=== PATIENT | female | born 1965 | race Caucasian/White ===

== ENCOUNTER 2017-06-20 09:01 | Emergency (ER) | payer MEDICAID ==
[2017-06-20 10:01] LABS: BILIRUBIN,URINE NEGATIVE (NEGATIVE)
[2017-06-20 10:04] LABS: UA CHARGE (STRIP ONLY) YES; UR CULTURE IF IND NOT INDICATED
--- NOTE | 2017-06-20 11:27 | ED Physician Documentation ---
PD HPI BACK PAIN - Stated complaint Stated Complaint: R SIDE ADB PX - Chief complaint Chief Complaint: Abd Pain - History obtained from History obtained from: Patient - History of Present Illness Timing - onset: How many months ago (has had right back pain for about a month, on and off, worse with movement.) Timing - details: Gradual onset, Still present, Intermittant Location: Mid, Right Quality: Pain, Spasm, Aching Associated symptoms: No: Fever, Weakness, Numbness Improves with: Rest Worsened by: Movement, Twisting, Palpation Contributing factors: Twisting Similar symptoms before: Has not had sx before Recently seen: Not recently seen Review of Systems Constitutional: denies: Fever, Chills Nose: denies: Rhinorrhea / runny nose, Congestion Throat: denies: Sore throat Respiratory: denies: Cough GI: denies: Abdominal Pain, Nausea, Vomiting, Diarrhea : denies: Dysuria, Frequency Skin: denies: Rash, Lesions Musculoskeletal: reports: Back pain (right lower thoracic area). denies: Neck pain Neurologic: denies: Focal weakness, Numbness Endocrine: reports: Polyuria. denies: Weight loss, Weight gain Immunocompromised: denies: Immunocompromised PD PAST MEDICAL HISTORY - Past Medical History Past Medical History: Yes Cardiovascular: Hypertension, High cholesterol Endocrine/Autoimmune: Other (has been told she was pre-diabetic in the past, but no recent labs. ) Other Past Medical History: Pre-diabetic - Past Surgical History Past Surgical History: Yes General: Cholecystectomy Ortho: Knee replacement - Present Medications Home Medications: Ambulatory Orders Medication Instructions Recorded Confirmed HYDROcod/ACETAM 5/325 [[place]perial 5/325] 1 tab PO Q6H PRN #15 tablet 06/20/17 Metformin HCl 850 mg PO BID #60 tablet 06/20/17 Methocarbamol [Robaxin] 500 mg PO Q6H PRN #25 tablet 06/20/17 Naproxen 375 mg PO BID #20 tablet 06/20/17 - Allergies Allergies/Adverse Reactions: Allergies Allergy/AdvReac Type Severity Reaction Status Date / Time Penicillins Allergy Rash Verified 06/20/17 09:13 - Social History Does the pt smoke?: No Smoking Status: Never smoker Does the pt drink ETOH?: No Does the pt have substance abuse?: No - Immunizations Immunizations are current?: Yes PD ED PE NORMAL - Vitals Vital signs reviewed: Yes - General General: Alert and oriented X 3, No acute distress, Well developed/nourished - Neck Neck: Supple, no meningeal sign, No adenopathy - Cardiac Cardiac: RRR, No murmur - Respiratory Respiratory: Clear bilaterally - Abdomen Abdomen: Normal bowel sounds, Soft, Non tender, Non distended - Back Back: No spinal TTP, Other (right lateral muscles at lower thoracic is tender without rash, sores, redness. Trigger point injection done there.) - Derm Derm: Normal color, Warm and dry, No rash - Extremities Extremities: No deformity, No tenderness to palpate - Neuro Neuro: Alert and oriented X 3, No motor deficit, Normal speech Results - Vitals Vitals: Vital Signs - 24 hr 06/20/17 13:47 Temperature 36.7 C Heart Rate 61 Respiratory 18 Rate Blood Pressure 133/92 H O2 Saturation 98 Oxygen O2 Source Room air - Labs Labs: Laboratory Tests 06/20/17 06/20/17 06/20/17 09:25 11:39 12:07 WBC 7.1 RBC 4.59 Hgb 13.5 Hct 39.9 MCV 86.9 MCH 29.5 MCHC 33.9 RDW 14.2 Plt Count 282 MPV 7.8 L Neut # 3.8 Lymph # 2.6 [place] # 0.3 Eos # 0.2 Baso # 0.1 Absolute Nucleated RBC 0.01 Nucleated RBCs 0.1 Sodium Potassium Chloride Carbon Dioxide Anion Gap BUN Creatinine Estimated GFR (MDRD) Glucose POC Whole Bld Glucose 233 H Glycated Hemoglobin Estim Average Glucose Calcium Magnesium Total Bilirubin AST ALT Alkaline Phosphatase Total Protein Albumin Globulin Albumin/Globulin Ratio Lipase Urine Color YELLOW Urine Clarity CLEAR Urine pH 6.0 Ur Specific [place] >=1.030 H Urine Protein NEGATIVE Urine Glucose (UA) >=1000 H Urine Ketones NEGATIVE Urine Occult Blood TRACE-INTA Urine Nitrite NEGATIVE Urine Bilirubin NEGATIVE Urine Urobilinogen 0.2 (NORMAL) Ur Leukocyte Esterase NEGATIVE Ur Microscopic Review NOT INDICATED Urine Culture Comments NOT INDICATED 06/20/17 06/20/17 12:07 12:07 WBC RBC Hgb Hct MCV MCH MCHC RDW Plt Count MPV Neut # Lymph # [place] # Eos # Baso # Absolute Nucleated RBC Nucleated RBCs Sodium 134 L Potassium 3.6 Chloride 99 L Carbon Dioxide 28 Anion Gap 7.0 BUN 13 Creatinine 0.5 Estimated GFR (MDRD) 130 Glucose 235 H POC Whole Bld Glucose Glycated Hemoglobin 12.9 H Estim Average Glucose 324 H Calcium 8.6 Magnesium 1.6 L Total Bilirubin 0.4 AST 26 ALT 32 Alkaline Phosphatase 76 Total Protein 7.2 Albumin 3.7 Globulin 3.5 Albumin/Globulin Ratio 1.1 Lipase 25 Urine Color Urine Clarity Urine pH Ur Specific [place] Urine Protein Urine Glucose (UA) Urine Ketones Urine Occult Blood Urine Nitrite Urine Bilirubin Urine Urobilinogen Ur Leukocyte Esterase Ur Microscopic Review Urine Culture Comments - Rads (name of study) KUB CT Radiology: Prelim report reviewed (no acute process) PD MEDICAL DECISION MAKING - ED course Complexity details: reviewed results, considered differential (the back seems muscular. CT done to ensure and this was okay. New onset diabetes but not appearing sick nor acidotic, so can initiate oral meds, though will likely need to go onto long acting insulin as best care, but will let her get PMD prior to that. ), d/w patient Departure - Departure Disposition: 01 Home, Self Care Clinical Impression: Flank pain, acute, Newly diagnosed diabetes Muscle strain of right upper back Qualifiers: Encounter type: initial encounter Qualified Code(s): S29.012A - Strain of muscle and tendon of back wall of thorax, initial encounter Condition: Stable Record reviewed to determine appropriate education?: Yes Instructions: ED Low Back Pain Injury, ED Hyperglycemia Diabetic Follow-Up: [facility] [Provider Group] [facility] [Provider Group] Prescriptions: Metformin HCl 850 mg PO BID #60 tablet Naproxen 375 mg PO BID #20 tablet HYDROcod/ACETAM 5/325 [[place]perial 5/325] 1 tab PO Q6H PRN #15 tablet PRN Reason: Pain Methocarbamol [Robaxin] 500 mg PO Q6H PRN #25 tablet PRN Reason: Spasms Comments: Presume this is muscular back pain without other obvious cause at this time. For that take naproxen with food twice daily for the next 7-10 days. Add methocarbamol for muscle stiffness and spasms and then Tylenol or hydrocodone if needed for pains. Your blood sugar is elevated and you should start medication for that. We will start with metformin twice daily. Follow-up with 1 of the clinics locally in the next 1-2 weeks and call for an appointment. You might need to also start insulin if the sugars are not coming down well in the near timeframe. Return if worsening or not improved symptoms for your back. Forms: Activity restrictions Discharge Date/Time: 06/20/17 13:55
[2017-06-20] MEDS ORDERED: TRIAMCINOLONE 40 MG/ML VIAL IM STA (11:58)
[2017-06-20] MEDS ORDERED: IBUPROFEN 600 MG TABLET PO STA (11:58)
[2017-06-20] MEDS ORDERED: traMADol 50 MG TABLET PO STA (11:58)
[2017-06-20] MEDS ORDERED: traMADol 50 MG TABLET PO ONE (12:05)
[2017-06-20] MEDS ORDERED: IBUPROFEN 600 MG TABLET PO ONE (12:06)
[2017-06-20] MEDS ORDERED: TRIAMCINOLONE 40 MG/ML VIAL ONE (12:06)
[2017-06-20 12:15] LABS: BASOPHILS # (AUTO) 0.1 10^3/uL (0.0-0.1); BASOPHILS % (AUTO) 0.9 %; EOSINOPHILS # (AUTO) 0.2 10^3/uL (0.0-0.7); EOSINOPHILS % (AUTO) 3.2 %; HCT - HEMATOCRIT 39.9 % (37.0-47.0); HGB - HEMOGLOBIN 13.5 g/dL (12.0-16.0); LYMPHOCYTES # (AUTO) 2.6 10^3/uL (1.5-3.5); MEAN CORPUSCULAR HEMOGLOBIN 29.5 pg (27.0-31.0); MEAN CORPUSCULAR HGB CONC 33.9 g/dL (32.0-36.0); MEAN CORPUSCULAR VOLUME 86.9 fL (81.0-99.0); MEAN PLATELET VOLUME 7.8 fL (7.9-10.8); MONOCYTES # (AUTO) 0.3 10^3/uL (0.0-1.0); MONOCYTES % (AUTO) 4.9 %; NEUTROPHILS # (AUTO) 3.8 10^3/uL (1.5-6.6); NUCLEATED RED BLOOD CELLS AUTO 0.1 /100WBC; RED BLOOD COUNT 4.59 10^6/uL (4.20-5.40); RED CELL DISTRIBUTION WIDTH 14.2 % (12.0-15.0); UNCORRECTED WHITE BLOOD COUNT 7.1 x10^3/uL; WHITE BLOOD COUNT 7.1 x10^3/uL (4.8-10.8)
[2017-06-20] MEDS ORDERED: BUPIVACAINE 0.5% PF 30 ML VIAL ONE (12:22)
[2017-06-20 12:40] LABS: ALBUMIN/GLOBULIN RATIO 1.1 (1.0-2.2); BILIRUBIN,TOTAL 0.4 mg/dL (0.2-1.0); CALCIUM 8.6 mg/dL (8.5-10.3); CREATININE 0.5 mg/dL (0.4-1.0); MAGNESIUM 1.6 mg/dL (1.7-2.8); POTASSIUM 3.6 mmol/L (3.5-5.0); TOTAL PROTEIN 7.2 g/dL (6.7-8.2)
[2017-06-20 12:54] LABS: HEMOGLOBIN A1C 1.7 g/dL
--- NOTE | 2017-06-20 13:14 | CT Preliminary Report ---
Exam: CT Abdomen/Pelvis W/O IMPRESSION: Negative noncontrast CT of the abdomen and pelvis. [facility] SITE ID: [id number]
--- NOTE | 2017-06-20 13:16 | CT Report ---
EXAM: CT ABDOMEN AND PELVIS (CT KUB) EXAM DATE: 06/20/2017 12:47 PM. CLINICAL HISTORY: Right flank pain. COMPARISONS: None. TECHNIQUE: Routine axial helical CT imaging was performed through the abdomen and pelvis without IV c ontrast. Reconstructions: Coronal and sagittal. In accordance with CT protocol optimization, one or more of the following dose reduction techniques w ere utilized for this exam: automated exposure control, adjustment of mA and/or KV based on patient s ize, or use of iterative reconstructive technique. FINDINGS: Lung Bases: Unremarkable. Right Kidney/Ureter: No stones, hydronephrosis, or hydroureter. No perinephric fat stranding. Left Kidney/Ureter: No stones, hydronephrosis, or hydroureter. No perinephric fat stranding. Other Solid Organs: Noncontrast images of the solid organs are grossly unremarkable. Gallbladder/Bile Ducts: The gallbladder is surgically absent. No significant bile duct dilatation. Peritoneal Cavity: No free fluid, free air or lianna adenopathy. Bowel is grossly unremarkable. Pelvic Organs: No bladder stones or wall thickening. Noncontrast images of the visualized pelvic orga ns are unremarkable. Vasculature: Unremarkable. Other: None. IMPRESSION: Negative noncontrast CT of the abdomen and pelvis. [facility] Referring Provider Line: [phone] SITE ID: [id number]
[2017-06-20 13:49] VITALS: BP 133/92
== END 2017-06-20 13:55 | disposition home or self-care (01) ==
LOC: ED 09:01
DX: S29.012A Strain of muscle and tendon of back wall of thorax, initial encounter (principal); X58.XXXA Exposure to other specified factors, initial encounter; I10 Essential (primary) hypertension; E78.00 Pure hypercholesterolemia, unspecified; E11.8 Type 2 diabetes mellitus with unspecified complications; Z79.84 Long term (current) use of oral hypoglycemic drugs; Z96.659 Presence of unspecified artificial knee joint
CPT/HCPCS: 36415; 74176; 80053; 81003; 83036; 83690; 83735; 85025; 96372; 99283; A9270; 81001; 87086

== ENCOUNTER 2017-10-26 09:59 | Emergency (ER) | payer MEDICAID ==
[2017-10-26 10:05] VITALS: BP 184/83
[2017-10-26] MEDS ORDERED: BENZONATATE 100 MG CAPSULE PO STA (10:17)
--- NOTE | 2017-10-26 10:29 | ED Physician Documentation ---
History of Present Illness - Stated complaint Stated Complaint: COUGH BLOOD - Chief complaint Chief Complaint: Resp - Additonal information Additional information: hx from pt 52 female cough for a month' today while working at [employer] had small hemoptysis so sent to ER no foreign travel or TB exposure no leg pain or swelling feels her cough is not clearing because she is homeless and spends a lot of time out in the cold between [employer] and [place] Review of Systems Constitutional: denies: Fever, Chills Respiratory: reports: Dyspnea, Cough, Hemoptysis GI: denies: Abdominal Pain : denies: Now EGA (denies) Musculoskeletal: denies: Extremity swelling PD PAST MEDICAL HISTORY - Past Medical History Cardiovascular: Hypertension, High cholesterol Endocrine/Autoimmune: Other - Past Surgical History Past Surgical History: Yes General: Cholecystectomy Ortho: Knee replacement - Present Medications Home Medications: Ambulatory Orders Medication Instructions Recorded Confirmed Benzonatate [Tessalon] 100 mg PO TID PRN #20 capsule 10/26/17 guaiFENesin/DEXTROMETHORPHAN 10 ml PO Q6H PRN #120 ml 10/26/17 [Robitussin Dm] - Allergies Allergies/Adverse Reactions: Allergies Allergy/AdvReac Type Severity Reaction Status Date / Time Penicillins Allergy Rash Verified 06/20/17 09:13 - Social History Does the pt smoke?: No Smoking Status: Never smoker Does the pt drink ETOH?: No Does the pt have substance abuse?: No - Immunizations Immunizations are current?: Yes PD ED PE NORMAL - Vitals Vital signs reviewed: Yes - Cardiac Cardiac: RRR - Respiratory Respiratory: No respiratory distress, Clear bilaterally - Abdomen Abdomen: Soft, Non tender - Extremities Extremities: No edema, No calf tenderness / cord - Neuro Neuro: Alert and oriented X 3 Results - Vitals Vitals: Vital Signs - 24 hr 10/26/17 10:02 Temperature 35.8 C L Heart Rate 90 Respiratory 18 Rate Blood Pressure 184/83 H O2 Saturation 100 Oxygen O2 Source Room air - Rads (name of study) CXR Radiology: See rad report (NACPD) Departure - Departure Disposition: 01 Home, Self Care Clinical Impression: Bronchitis Condition: Good Instructions: ED Viral Syndrome Prescriptions: Benzonatate [Tessalon] 100 mg PO TID PRN #20 capsule PRN Reason: to ease cough guaiFENesin/DEXTROMETHORPHAN [Robitussin Dm] 10 ml PO Q6H PRN #120 ml PRN Reason: Cough Comments: The xray is fine - no cancer TB or infection seen. I have prescribed medications to ease your cough. I wrote a note to be off work for two days Please follow up with your PMD as needed - if the blood continues you may need a referral to a lung specialist If you cough up a lot of blood (more than a tablespoon of pure blood (not bloody mucous) come back to the ER - you will need a test called a bronchoscope which will require you being transferred to a larger hospital Forms: Activity restrictions
--- NOTE | 2017-10-26 11:04 | XRAY Report ---
EXAM: CHEST RADIOGRAPHY EXAM DATE: 10/26/2017 10:46 AM. CLINICAL HISTORY: Hemoptysis. COMPARISON: None. TECHNIQUE: 2 views. FINDINGS: Lungs/Pleura: No focal opacities evident. No pleural effusion. No pneumothorax. Normal volumes. Mediastinum: Heart and mediastinal contours are unremarkable. Other: Degenerative changes of the thoracic spine. No acute osseous abnormalities. IMPRESSION: 1. No acute disease in the chest. [facility] Referring Provider Line: [phone] SITE ID: [id number]
== END 2017-10-26 11:52 | disposition home or self-care (01) ==
LOC: ED 09:59
DX: J40 Bronchitis, not specified as acute or chronic (principal); I10 Essential (primary) hypertension; E78.00 Pure hypercholesterolemia, unspecified
CPT/HCPCS: 71046; 99283; A9270

== ENCOUNTER 2017-11-08 08:58 | Emergency (ER) | payer MEDICAID ==
[2017-11-08] MEDS ORDERED: SODIUM CHLORIDE 0.9% 1,000 ML IV ONE ×2 (09:30→10:03)
[2017-11-08 09:32] LABS: BASOPHILS # (AUTO) 0.1 10^3/uL (0.0-0.1); EOSINOPHILS # (AUTO) 0.3 10^3/uL (0.0-0.7); EOSINOPHILS % (AUTO) 4.6 %; HGB - HEMOGLOBIN 14.9 g/dL (12.0-16.0); LYMPHOCYTES # (AUTO) 2.9 10^3/uL (1.5-3.5); LYMPHOCYTES % (AUTO) 38.6 %; MEAN CORPUSCULAR HEMOGLOBIN 30.2 pg (27.0-31.0); MEAN CORPUSCULAR HGB CONC 32.6 g/dL (32.0-36.0); MEAN CORPUSCULAR VOLUME 92.7 fL (81.0-99.0); MEAN PLATELET VOLUME 8.6 fL (7.9-10.8); MONOCYTES # (AUTO) 0.4 10^3/uL (0.0-1.0); MONOCYTES % (AUTO) 5.1 %; NEUTROPHILS # (AUTO) 3.7 10^3/uL (1.5-6.6); NEUTROPHILS % (AUTO) 49.7 %; PLT - PLATELET COUNT 299 10^3/uL (130-450); RED BLOOD COUNT 4.93 10^6/uL (4.20-5.40); WHITE BLOOD COUNT 7.4 x10^3/uL (4.8-10.8)
--- NOTE | 2017-11-08 09:33 | ED Physician Documentation ---
History of Present Illness - Stated complaint Stated Complaint: ABD PX/DIZZY/ARM PX - Chief complaint Chief Complaint: Cardiac - History obtained from History obtained from: Patient, Family - History of Present Illness Timing: Today - Additonal information Additional information: 52-year-old homeless female has had a month-long history of bronchitis which now appears to be improving and despite this this morning she began to feel ill. She describes that she only feels that something is wrong and has some pressure in her lower chest and upper abdomen with radiation down her arm and she feels that she is at risk of a heart attack or stroke. She has a history of hypertension and diabetes and she is not under treatment for either of these. She has been drinking a lot of fluids and urinating a lot. Review of Systems Constitutional: reports: Fatigue. denies: Fever, Chills Eyes: denies: Decreased vision Ears: denies: Ear pain Nose: reports: Congestion. denies: Rhinorrhea / runny nose Throat: denies: Sore throat Cardiac: denies: Chest pain / pressure, Palpitations Respiratory: reports: Cough. denies: Dyspnea GI: reports: Abdominal Pain. denies: Nausea, Vomiting, Constipation, Diarrhea : denies: Dysuria, Frequency Skin: denies: Rash Musculoskeletal: denies: Neck pain, Back pain, Extremity pain Endocrine: reports: Polydypsia, Polyuria PD PAST MEDICAL HISTORY - Past Medical History Past Medical History: Yes Cardiovascular: Hypertension, High cholesterol Neuro: TIA Endocrine/Autoimmune: Other - Past Surgical History Past Surgical History: Yes General: Cholecystectomy Ortho: Knee replacement - Present Medications Home Medications: Ambulatory Orders Medication Instructions Recorded Confirmed metFORMIN [Glucophage] 500 mg PO BIDWM #30 tablet 11/08/17 - Allergies Allergies/Adverse Reactions: Allergies Allergy/AdvReac Type Severity Reaction Status Date / Time Penicillins Allergy Rash Verified 06/20/17 09:13 - Social History Does the pt smoke?: No Smoking Status: Never smoker Does the pt drink ETOH?: No Does the pt have substance abuse?: No - Immunizations Immunizations are current?: Yes PD ED PE NORMAL - Vitals Vital signs reviewed: Yes (Hypertensive) - General General: Alert and oriented X 3, No acute distress, Well developed/nourished - HEENT HEENT: Atraumatic, PERRL, EOMI, Ears normal, Other (Dry mucous membranes) - Neck Neck: Supple, no meningeal sign, No bony TTP - Cardiac Cardiac: RRR, No murmur - Respiratory Respiratory: No respiratory distress, Clear bilaterally - Abdomen Abdomen: Soft, Non tender - Back Back: No CVA TTP, No spinal TTP - Derm Derm: Normal color, Warm and dry, No rash - Extremities Extremities: No deformity, No edema - Neuro Neuro: No motor deficit, No sensory deficit Eye Opening: Spontaneous Motor: Obeys Commands Verbal: Oriented GCS Score: 15 - Psych Psych: Normal mood, Normal affect Results - Vitals Vitals: Vital Signs - 24 hr 11/08/17 11/08/17 11/08/17 09:03 09:44 11:24 Temperature 35.9 C L Heart Rate 80 65 64 Respiratory 18 99 H 24 Rate Blood Pressure 187/102 H 166/92 H 130/71 O2 Saturation 98 100 11/08/17 11:59 Temperature Heart Rate 69 Respiratory 14 Rate Blood Pressure 132/83 H O2 Saturation 100 Oxygen O2 Source Room air - EKG (time done) 0906 Rate: Rate (enter#) (76) Rhythm: NSR Intervals: RBBB Compare to prior EKG: Old EKG unavailable Computer interpretation: Agree with computer - Labs Labs: Laboratory Tests 11/08/17 11/08/17 11/08/17 09:15 09:15 09:15 WBC 7.4 RBC 4.93 Hgb 14.9 Hct 45.7 MCV 92.7 MCH 30.2 MCHC 32.6 RDW 14.0 Plt Count 299 MPV 8.6 Neut # 3.7 Lymph # 2.9 [place] # 0.4 Eos # 0.3 Baso # 0.1 Absolute Nucleated RBC 0.00 Nucleated RBC % 0.1 Sodium 133 L Potassium 4.2 Chloride 94 L Carbon Dioxide 27 Anion Gap 12.0 BUN 14 Creatinine 0.7 Estimated GFR (MDRD) 88 L Glucose 347 H POC Whole Bld Glucose Calcium 9.4 Total Bilirubin 0.3 AST 27 ALT 36 Alkaline Phosphatase 92 Troponin I < 0.04 Total Protein 8.2 Albumin 3.9 Globulin 4.3 H Albumin/Globulin Ratio 0.9 L Lipase 22 Urine Color Urine Clarity Urine pH Ur Specific [place] Urine Protein Urine Glucose (UA) Urine Ketones Urine Occult Blood Urine Nitrite Urine Bilirubin Urine Urobilinogen Ur Leukocyte Esterase Ur Microscopic Review Urine Culture Comments 11/08/17 11/08/17 11/08/17 09:40 11:05 11:58 WBC RBC Hgb Hct MCV MCH MCHC RDW Plt Count MPV Neut # Lymph # [place] # Eos # Baso # Absolute Nucleated RBC Nucleated RBC % Sodium Potassium Chloride Carbon Dioxide Anion Gap BUN Creatinine Estimated GFR (MDRD) Glucose POC Whole Bld Glucose 272 H 181 H Calcium Total Bilirubin AST ALT Alkaline Phosphatase Troponin I Total Protein Albumin Globulin Albumin/Globulin Ratio Lipase Urine Color YELLOW Urine Clarity CLEAR Urine pH 6.0 Ur Specific [place] 1.025 Urine Protein NEGATIVE Urine Glucose (UA) >=1000 H Urine Ketones NEGATIVE Urine Occult Blood TRACE-INTA Urine Nitrite NEGATIVE Urine Bilirubin NEGATIVE Urine Urobilinogen 0.2 (NORMAL) Ur Leukocyte Esterase NEGATIVE Ur Microscopic Review NOT INDICATED Urine Culture Comments NOT INDICATED - Rads (name of study) 2 veiw chest Radiology: Prelim report reviewed (Impression: No acute abnormality of the chest demonstrated.), EMP read indepedently, See rad report Procedures - IVC sono (time) 0920 Bedside IVC sono: IVC measures (cm) (0.89), IVC collapsed c insp (cm) (complete) , Dehydration (est 2 liters) PD MEDICAL DECISION MAKING - ED course Complexity details: reviewed old records, reviewed results, re-evaluated patient , considered differential, d/w patient, d/w family ED course: 52-year-old female with history of hypertension and diabetes untreated presents to the emergency department this morning with epigastric pain and hypertension and she has normal-appearing electrocardiogram and is significantly dehydrated. She is administered saline and some insulin to get her sugar under 200. Departure - Departure Disposition: 01 Home, Self Care Clinical Impression: Dehydration Diabetes type 2, uncontrolled Qualifiers: Diabetes mellitus complication status: with other specified complication Diabetes mellitus medical terminologist insulin use: without fpc use Qualified Code(s) : E11.69 - Type 2 diabetes mellitus with other specified complication Condition: Stable Instructions: Diabetes Type 2 Oral Meds, ED Dehydration Follow-Up: Your, doctor [Other] Prescriptions: metFORMIN [Glucophage] 500 mg PO BIDWM #30 tablet Discharge Date/Time: 11/08/17 12:13
[2017-11-08 09:34] LABS: ALBUMIN 3.9 g/dL (3.2-5.5); ALBUMIN/GLOBULIN RATIO 0.9 (1.0-2.2); BILIRUBIN,TOTAL 0.3 mg/dL (0.2-1.0); CALCIUM 9.4 mg/dL (8.5-10.3); CREATININE 0.7 mg/dL (0.4-1.0); TOTAL PROTEIN 8.2 g/dL (6.7-8.2)
--- NOTE | 2017-11-08 09:47 | XRAY Report ---
EXAM: CHEST RADIOGRAPHY EXAM DATE: 11/08/2017 09:39 AM. CLINICAL HISTORY: Chest pain. COMPARISON: 10/26/2017. TECHNIQUE: 2 views. FINDINGS: Lungs/Pleura: No focal opacities evident. No pleural effusion. No pneumothorax. Normal volumes. Mediastinum: Heart and mediastinal contours are unremarkable. Other: Thoracolumbar spondylosis demonstrated. IMPRESSION: No acute abnormality of the chest demonstrated. [facility] Referring Provider Line: [phone] SITE ID: [id number]
[2017-11-08 09:51] LABS: BILIRUBIN,URINE NEGATIVE (NEGATIVE); GLUCOSE, URINE (UA) >=1000 mg/dL (NEGATIVE); KETONES,URINE (UA) NEGATIVE (NEGATIVE); LEUKOCYTE ESTERASE, URINE NEGATIVE (NEGATIVE); NITRITE,URINE NEGATIVE (NEGATIVE); OCCULT BLOOD,URINE TRACE-INTA (NEGATIVE); PROTEIN,URINE NEGATIVE (NEGATIVE); UROBILINOGEN,URINE 0.2 (NORMAL) E.U./dL (NORMAL)
[2017-11-08 09:52] LABS: CLARITY,URINE CLEAR (CLEAR)
[2017-11-08] MEDS ORDERED: INSULIN REGULAR HUMAN 100 UNIT/1 ML 10 ML MDV IVP STA ×2 (11:07→11:08)
[2017-11-08 12:00] VITALS: BP 132/83
== END 2017-11-08 12:13 | disposition home or self-care (01) ==
LOC: ED 08:58
DX: E86.0 Dehydration (principal); E11.65 Type 2 diabetes mellitus with hyperglycemia; R10.13 Epigastric pain; I10 Essential (primary) hypertension; I45.10 Unspecified right bundle-branch block; Z59.0 Homelessness
CPT/HCPCS: 36415; 71046; 80053; 81003; 83690; 84484; 85025; 93005; 96360; 96361; 99284; J1815; 81001; 87086

== ENCOUNTER 2018-01-02 06:21 | Outpatient (CLI) | payer MEDICAID | END 2018-01-02 06:22 | disposition critical access hospital (66) | LOC: EMS 06:21 | PROVIDERS: ATTEND Surgery | DX: R10.9 Unspecified abdominal pain (principal); R19.7 Diarrhea, unspecified | CPT/HCPCS: A0425; A0429 ==

== ENCOUNTER 2018-01-02 06:38 | Emergency (ER) | payer MEDICAID ==
[2018-01-02 07:08] LABS: BASOPHILS # (AUTO) 0.1 10^3/uL (0.0-0.1); BASOPHILS % (AUTO) 1.3 %; EOSINOPHILS # (AUTO) 0.9 10^3/uL (0.0-0.7); EOSINOPHILS % (AUTO) 8.8 %; HGB - HEMOGLOBIN 14.7 g/dL (12.0-16.0); LYMPHOCYTES # (AUTO) 2.4 10^3/uL (1.5-3.5); LYMPHOCYTES % (AUTO) 24.7 %; MEAN CORPUSCULAR HEMOGLOBIN 29.7 pg (27.0-31.0); MEAN CORPUSCULAR HGB CONC 33.8 g/dL (32.0-36.0); MEAN CORPUSCULAR VOLUME 88.1 fL (81.0-99.0); MEAN PLATELET VOLUME 8.1 fL (7.9-10.8); MONOCYTES # (AUTO) 0.6 10^3/uL (0.0-1.0); MONOCYTES % (AUTO) 6.2 %; NEUTROPHILS # (AUTO) 5.8 10^3/uL (1.5-6.6); PLT - PLATELET COUNT 358 10^3/uL (130-450); RED BLOOD COUNT 4.96 10^6/uL (4.20-5.40); RED CELL DISTRIBUTION WIDTH 13.9 % (12.0-15.0); WHITE BLOOD COUNT 9.9 x10^3/uL (4.8-10.8)
[2018-01-02 07:11] LABS: ALBUMIN 3.8 g/dL (3.2-5.5); ALBUMIN/GLOBULIN RATIO 0.9 (1.0-2.2); BILIRUBIN,TOTAL 0.4 mg/dL (0.2-1.0); CREATININE 0.7 mg/dL (0.4-1.0); TOTAL PROTEIN 8.2 g/dL (6.7-8.2)
[2018-01-02] MEDS ORDERED: INSULIN REGULAR HUMAN 100 UNIT/1 ML 10 ML MDV SUBQ STA (08:16)
[2018-01-02] MEDS ORDERED: SODIUM CHLORIDE 0.9% 1,000 ML IV ONE ×2 (08:16→09:04)
--- NOTE | 2018-01-02 08:37 | ED Physician Documentation ---
PD HPI ABD PAIN - Stated complaint Stated Complaint: ABD PX - Chief complaint Chief Complaint: Abd Pain - History obtained from History obtained from: Patient - History of Present Illness Timing - onset: Today Timing - details: Still present Quality: Cramping Location: All over / everywhere Associated symptoms: Nausea, Diarrhea. No: Fever, Vomiting, Dysuria Similar symptoms before: Has not had sx before - Additional information Additional information: The patient is a 52-year-old type II diabetic who presents with crampy abdominal pain and watery diarrhea that started this morning. She reports 5 episodes of diarrhea in the past 3 hours. She also reports nausea, without vomiting. She denies fever or dysuria. Her blood sugar this morning was 400, and she reports polyuria. She also reports mild nonproductive cough. She denies chest pain or shortness of breath. She denies history of similar symptoms in the past. In addition she complains of decreased sensation of her left foot since yesterday morning. She denies associated pain in either her foot, leg, or back. She denies history of similar symptoms in the past. [facility] She recently returned to [facility] after becoming homeless in [place]. Her , who is an insulin-dependent diabetic, has had diarrhea for the past 3 days. Review of Systems Constitutional: denies: Fever, Myalgias Nose: denies: Congestion Throat: denies: Sore throat Cardiac: denies: Chest pain / pressure Respiratory: reports: Cough (Nonproductive). denies: Dyspnea GI: reports: Abdominal Pain, Nausea, Diarrhea. denies: Vomiting : denies: Dysuria Skin: denies: Rash Musculoskeletal: denies: Back pain, Extremity pain, Extremity swelling Neurologic: reports: Numbness (Decreased sensation left foot.). denies: Focal weakness, Headache Endocrine: reports: Polyuria PD PAST MEDICAL HISTORY - Past Medical History Past Medical History: Yes Cardiovascular: Hypertension, High cholesterol Neuro: TIA Endocrine/Autoimmune: Type 2 diabetes, Other - Past Surgical History Past Surgical History: Yes General: Cholecystectomy Ortho: Knee replacement - Present Medications Home Medications: Ambulatory Orders Medication Instructions Recorded Confirmed metFORMIN [Glucophage] 500 mg PO BIDWM #30 tablet 11/08/17 - Allergies Allergies/Adverse Reactions: Allergies Allergy/AdvReac Type Severity Reaction Status Date / Time Penicillins Allergy Rash Verified 01/02/18 06:47 - Living Situation Living Arrangement: reports: Homeless (Living in Homeless Longterm.) - Social History Does the pt smoke?: No Smoking Status: Never smoker Does the pt drink ETOH?: No Does the pt have substance abuse?: No - Immunizations Immunizations are current?: Yes - POLST Patient has POLST: No PD ED PE NORMAL - Vitals Vital signs reviewed: Yes (hypertensive.) - General General: Alert and oriented X 3, Well developed/nourished, Other (Overweight.) - HEENT HEENT: Atraumatic, EOMI, Moist mucous membranes, Pharynx benign - Neck Neck: Supple, no meningeal sign, No adenopathy, No JVD - Cardiac Cardiac: RRR, No murmur - Respiratory Respiratory: No respiratory distress, Clear bilaterally - Abdomen Abdomen: Normal bowel sounds, Soft, Non tender - Back Back: No CVA TTP, No spinal TTP - Derm Derm: No rash - Extremities Extremities: No tenderness to palpate, No edema, No calf tenderness / cord - Neuro Neuro: Alert and oriented X 3, No motor deficit, Normal speech, Other ( Decreased slight touch sensation left lateral and dorsal foot.) Eye Opening: Spontaneous Motor: Obeys Commands Verbal: Oriented GCS Score: 15 Results - Vitals Vitals: Oxygen O2 Source Room air - Labs Labs: Laboratory Tests 01/02/18 01/02/18 01/02/18 06:46 06:46 11:15 WBC 9.9 RBC 4.96 Hgb 14.7 Hct 43.6 MCV 88.1 MCH 29.7 MCHC 33.8 RDW 13.9 Plt Count 358 MPV 8.1 Neut # 5.8 Lymph # 2.4 [place] # 0.6 Eos # 0.9 H Baso # 0.1 Absolute Nucleated RBC 0.00 Nucleated RBC % 0.0 Sodium 133 L Potassium 3.2 L Chloride 101 Carbon Dioxide 21 Anion Gap 11.0 BUN 13 Creatinine 0.7 Estimated GFR (MDRD) 88 L Glucose 364 H Calcium 9.0 Total Bilirubin 0.4 AST 29 ALT 43 Alkaline Phosphatase 116 Total Protein 8.2 Albumin 3.8 Globulin 4.4 H Albumin/Globulin Ratio 0.9 L Lipase 28 Urine Color LIGHT YELLOW Urine Clarity CLEAR Urine pH 5.5 Ur Specific [place] 1.020 Urine Protein NEGATIVE Urine Glucose (UA) 500 H Urine Ketones NEGATIVE Urine Occult Blood NEGATIVE Urine Nitrite NEGATIVE Urine Bilirubin NEGATIVE Urine Urobilinogen 0.2 (NORMAL) Ur Leukocyte Esterase NEGATIVE Ur Microscopic Review NOT INDICATED Urine Culture Comments NOT INDICATED PD MEDICAL DECISION MAKING - ED course Complexity details: reviewed old records, reviewed results, re-evaluated patient , considered differential, d/w patient ED course: The patient's presentation is significant for diarrhea with dehydration, and hyperglycemia. Her abdomen is benign, with no evidence of diverticulitis, appendicitis, pancreatitis, or pyelonephritis. Her diarrhea is most likely caused by a viral gastroenteritis. Treatment in the emergency department included administration of normal saline 2 L IV, and regular insulin 8 units subcutaneously. Her blood sugar, which was initially 364, came down to 192 by the time of discharge. She felt subjectively much improved, and had gone for 2 hours without any episodes of diarrhea prior to discharge. I discussed with her the expected course of illness, symptomatic treatment and outpatient follow-up, as well as potentially worrisome signs or symptoms that should prompt reevaluation in the emergency department. Departure - Departure Disposition: 01 Home, Self Care Clinical Impression: Dehydration Diarrhea Qualifiers: Diarrhea type: unspecified type Qualified Code(s): R19.7 - Diarrhea, unspecified Diabetes mellitus with hyperglycemia Qualifiers: Diabetes mellitus type: type 2 Diabetes mellitus manager terminal insulin use: without manager terminal use Qualified Code(s): E11.65 - Type 2 diabetes mellitus with hyperglycemia Diabetic neuropathy Qualifiers: Diabetes mellitus type: type 2 Diabetes mellitus complication detail: diabetic mononeuropathy Qualified Code(s): E11.41 - Type 2 diabetes mellitus with diabetic mononeuropathy Condition: Stable Instructions: ED Dehydration, ED Diarrhea Viral Follow-Up: [facility] [Provider Group] Comments: Drink plenty of fluids. Continue your diabetic medication as previously prescribed. Keep your left foot elevated as much of the time as possible. Follow-up with primary physician within 1-2 weeks. Call to schedule appointment. Return to the emergency department if you develop increasing abdominal pain, persistent diarrhea, recurrent dehydration, or otherwise worsening symptoms. Discharge Date/Time: 01/02/18 13:19
[2018-01-02 11:33] LABS: BILIRUBIN,URINE NEGATIVE (NEGATIVE); GLUCOSE, URINE (UA) 500 mg/dL (NEGATIVE); KETONES,URINE (UA) NEGATIVE (NEGATIVE); LEUKOCYTE ESTERASE, URINE NEGATIVE (NEGATIVE); NITRITE,URINE NEGATIVE (NEGATIVE); OCCULT BLOOD,URINE NEGATIVE (NEGATIVE); PH,URINE 5.5 PH (5.0-7.5); PROTEIN,URINE NEGATIVE (NEGATIVE); UROBILINOGEN,URINE 0.2 (NORMAL) E.U./dL (NORMAL)
[2018-01-02 11:34] LABS: CLARITY,URINE CLEAR (CLEAR)
[2018-01-02 13:17] VITALS: BP 154/95
== END 2018-01-02 13:19 | disposition home or self-care (01) ==
LOC: EDUNIT# → ED 06:38
DX: E86.0 Dehydration (principal); R19.7 Diarrhea, unspecified; E11.65 Type 2 diabetes mellitus with hyperglycemia; E11.41 Type 2 diabetes mellitus with diabetic mononeuropathy; I10 Essential (primary) hypertension; E78.00 Pure hypercholesterolemia, unspecified; Z79.84 Long term (current) use of oral hypoglycemic drugs; Z96.659 Presence of unspecified artificial knee joint; Z59.0 Homelessness
CPT/HCPCS: 36415; 80053; 81003; 83690; 85025; 96360; 96361; 99284; J1815; 81001; 87086

== ENCOUNTER 2018-01-16 11:30 | Emergency (ER) | payer MEDICAID ==
--- NOTE | 2018-01-16 12:11 | ED Physician Documentation ---
PD HPI ABD PAIN - Stated complaint Stated Complaint: CONSTIPATION - Chief complaint Chief Complaint: Abd Pain - History obtained from History obtained from: Patient - History of Present Illness Timing - onset: How many days ago (rectal pain and no BMs for 2 days, hurting to wipe and try to defecate. No blood in stool. Stools are firm and hard to push out.) Timing - duration: Days Timing - details: Gradual onset, Still present, Waxing and waning Quality: Cramping, Pain (at rectal area and lower left abd.) Location: LLQ Radiation: No: Left flank, Right flank Improved by: Laying still, Position Worsened by: Eating Associated symptoms: Constipation. No: Fever, Nausea, Vomiting, Diarrhea, Melena, Hematochezia Review of Systems Constitutional: reports: Chills, Myalgias. denies: Fever Eyes: denies: Loss of vision Nose: denies: Rhinorrhea / runny nose, Congestion Throat: denies: Sore throat Cardiac: denies: Chest pain / pressure Respiratory: denies: Dyspnea, Cough GI: reports: Abdominal Pain, Constipation. denies: Nausea, Vomiting, Diarrhea Musculoskeletal: denies: Neck pain, Back pain Neurologic: reports: Generalized weakness. denies: Focal weakness, Numbness Endocrine: reports: Polydypsia, Polyuria Immunocompromised: denies: Immunocompromised PD PAST MEDICAL HISTORY - Past Medical History Cardiovascular: Hypertension, High cholesterol Neuro: TIA Endocrine/Autoimmune: Type 2 diabetes, Other - Past Surgical History Past Surgical History: Yes General: Cholecystectomy Ortho: Knee replacement - Present Medications Home Medications: Ambulatory Orders Medication Instructions Recorded Confirmed metFORMIN [Glucophage] 500 mg PO BIDWM #30 tablet 11/08/17 Blood Sugar Diagnostic [Glucometer 1 strip MC BID #100 strip 01/16/18 Strips] Blood-Glucose Meter [Glucometer] 1 each MC BID #1 each 01/16/18 Docusate Sodium 100 mg PO DAILY #30 capsule 01/16/18 Hydrocortisone Acetate [Anucort-Hc] 25 mg RC DAILY #5 supp.rect 01/16/18 Tramadol HCl 50 mg PO Q6H PRN #20 tablet 01/16/18 glyBURIDE [Glyburide] 5 mg PO DAILY #30 tablet 01/16/18 - Allergies Allergies/Adverse Reactions: Allergies Allergy/AdvReac Type Severity Reaction Status Date / Time Penicillins Allergy Rash Verified 01/16/18 11:39 - Social History Does the pt smoke?: No Smoking Status: Never smoker Does the pt drink ETOH?: No Does the pt have substance abuse?: No - Immunizations Immunizations are current?: Yes - POLST Patient has POLST: No PD ED PE NORMAL - Vitals Vital signs reviewed: Yes - General General: Alert and oriented X 3, No acute distress, Well developed/nourished - HEENT HEENT: Moist mucous membranes, Pharynx benign - Neck Neck: Supple, no meningeal sign, No adenopathy - Cardiac Cardiac: RRR, No murmur - Respiratory Respiratory: Clear bilaterally - Abdomen Abdomen: Normal bowel sounds, Soft, Non tender, Non distended, No organomegaly - Female Female : Deferred - Rectal Rectal: Other (swollen hemorrhoids without thrombosis. Internal hemorrhoids tender as well. No perirectal swelling nor tenderness. ) - Back Back: No CVA TTP - Derm Derm: Normal color, No rash - Extremities Extremities: No tenderness to palpate, Normal ROM s pain, No edema, No calf tenderness / cord - Neuro Neuro: Alert and oriented X 3, No motor deficit, Normal speech Results - Vitals Vitals: Vital Signs - 24 hr 01/16/18 01/16/18 11:35 14:53 Temperature 36.8 C 36.5 C Heart Rate 91 91 Respiratory 18 12 Rate Blood Pressure 160/91 H 140/85 H O2 Saturation 100 96 Oxygen O2 Source Room air - Labs Labs: Laboratory Tests 01/16/18 01/16/18 01/16/18 13:02 14:03 14:03 Sodium 131 L Potassium 4.2 Chloride 92 L Carbon Dioxide 27 Anion Gap 12.0 BUN 14 Creatinine 0.8 Estimated GFR (MDRD) 75 L Glucose 399 H POC Whole Bld Glucose 430 H Glycated Hemoglobin 12.5 H Estim Average Glucose 312 H Calcium 9.4 Magnesium 2.0 Total Bilirubin 0.8 AST 41 ALT 53 Alkaline Phosphatase 139 H Total Protein 8.3 H Albumin 4.1 Globulin 4.2 Albumin/Globulin Ratio 1.0 Lipase 26 Urine Color Urine Clarity Urine pH Ur Specific [place] Urine Protein Urine Glucose (UA) Urine Ketones Urine Occult Blood Urine Nitrite Urine Bilirubin Urine Urobilinogen Ur Leukocyte Esterase Ur Microscopic Review Urine Culture Comments 01/16/18 01/16/18 14:25 14:33 Sodium Potassium Chloride Carbon Dioxide Anion Gap BUN Creatinine Estimated GFR (MDRD) Glucose POC Whole Bld Glucose 432 H Glycated Hemoglobin Estim Average Glucose Calcium Magnesium Total Bilirubin AST ALT Alkaline Phosphatase Total Protein Albumin Globulin Albumin/Globulin Ratio Lipase Urine Color YELLOW Urine Clarity CLEAR Urine pH 5.0 Ur Specific [place] 1.020 Urine Protein TRACE Urine Glucose (UA) >=1000 H Urine Ketones NEGATIVE Urine Occult Blood NEGATIVE Urine Nitrite NEGATIVE Urine Bilirubin NEGATIVE Urine Urobilinogen 0.2 (NORMAL) Ur Leukocyte Esterase NEGATIVE Ur Microscopic Review NOT INDICATED Urine Culture Comments NOT INDICATED PD MEDICAL DECISION MAKING - ED course Complexity details: re-evaluated patient, considered differential (here for rectal pain and constipation. has some hemorrhoids, but not thrombosed. Also noted is her sugar at 420. However it has been that high or close on prior visits, and likely is always that high. Given some insulin here and we talked about needing other meds for glucose control. She is [facility] , who is also diabetic and he does not check his sugars due to glucometer needing new battery. I think starting her on insulin such as Lantus can be harder in their situation, so can try oral meds sulfonurea and see how it works. ), d/w patient Departure - Departure Disposition: Home, Self Care Clinical Impression: Rectal pain Diabetes type 2, uncontrolled Qualifiers: Diabetes mellitus complication status: with unspecified complications Diabetes mellitus long term care administrator insulin use: without long term care administrator use Qualified Code(s): E11.8 - Type 2 diabetes mellitus with unspecified complications; E11.65 - Type 2 diabetes mellitus with hyperglycemia; E11.65 - Type 2 diabetes mellitus with hyperglycemia; E11.65 - Type 2 diabetes mellitus with hyperglycemia; E11.65 - Type 2 diabetes mellitus with hyperglycemia Constipation Qualifiers: Constipation type: unspecified constipation type Qualified Code(s): K59.00 - Constipation, unspecified Hemorrhoids Qualifiers: Hemorrhoid type: unspecified Qualified Code(s): K64.9 - Unspecified hemorrhoids Condition: Stable Record reviewed to determine appropriate education?: Yes Instructions: ED Constipation, ED Hyperglycemia Diabetic Follow-Up: [facility] [Provider Group] Prescriptions: Blood Sugar Diagnostic [Glucometer Strips] 1 strip MC BID #100 strip Blood-Glucose Meter [Glucometer] 1 each MC BID #1 each Docusate Sodium 100 mg PO DAILY #30 capsule glyBURIDE [Glyburide] 5 mg PO DAILY #30 tablet Hydrocortisone Acetate [Anucort-Hc] 25 mg RC DAILY #5 supp.rect Tramadol HCl 50 mg PO Q6H PRN #20 tablet PRN Reason: Pain Comments: Use the Anusol suppository daily to help with inflammation at the rectum. There are some mild internal hemorrhoids. Docusate stool softener daily or twice daily to begin with and then daily after that for the next week or 2. Drink lots of fluids. Use Tylenol or tramadol if needed for pains. For your blood sugar, continue the metformin and add glyburide daily. Try to check her sugars at least daily if you are able to. Follow-up with your primary care from [facility] or also try to obtain a local provider if you are going to be here for an extended period. Discharge Date/Time: 01/16/18 14:56
[2018-01-16] MEDS ORDERED: IBUPROFEN 600 MG TABLET PO STA (12:23)
[2018-01-16] MEDS ORDERED: traMADol 50 MG TABLET PO STA (12:23)
[2018-01-16] MEDS ORDERED: DOCUSATE SODIUM 100 MG CAPSULE PO STA (12:23)
[2018-01-16] MEDS ORDERED: MINERAL OIL ENEMA 133 ML BOTTLE RC STA (12:24)
[2018-01-16] MEDS ORDERED: INSULIN REGULAR HUMAN 100 UNIT/1 ML 10 ML MDV SUBQ STA (13:47)
[2018-01-16] MEDS ORDERED: HYDROcod/ACETAM 5/325 MG TABLET PO STA (13:50)
[2018-01-16] MEDS ORDERED: glyBURIDE 2.5 MG TABLET PO STA (13:52)
[2018-01-16 14:34] LABS: HB2 TOTAL 15.9 g/dL; HEMOGLOBIN A1C 1.8 g/dL; HEMOGLOBIN A1C % 12.5 % (4.6-6.2)
[2018-01-16 14:35] LABS: ALBUMIN 4.1 g/dL (3.2-5.5); BILIRUBIN,TOTAL 0.8 mg/dL (0.2-1.0); CALCIUM 9.4 mg/dL (8.5-10.3); CREATININE 0.8 mg/dL (0.4-1.0); TOTAL PROTEIN 8.3 g/dL (6.7-8.2)
[2018-01-16 14:53] LABS: BILIRUBIN,URINE NEGATIVE (NEGATIVE); GLUCOSE, URINE (UA) >=1000 mg/dL (NEGATIVE); KETONES,URINE (UA) NEGATIVE (NEGATIVE); LEUKOCYTE ESTERASE, URINE NEGATIVE (NEGATIVE); NITRITE,URINE NEGATIVE (NEGATIVE); OCCULT BLOOD,URINE NEGATIVE (NEGATIVE); PROTEIN,URINE TRACE mg/dL (NEGATIVE); UROBILINOGEN,URINE 0.2 (NORMAL) E.U./dL (NORMAL)
[2018-01-16 14:54] VITALS: BP 140/85
[2018-01-16 15:06] LABS: CLARITY,URINE CLEAR (CLEAR)
== END 2018-01-16 14:56 | disposition home or self-care (01) ==
LOC: ED 11:30
DX: K62.89 Other specified diseases of anus and rectum (principal); E11.65 Type 2 diabetes mellitus with hyperglycemia; K59.00 Constipation, unspecified; K64.9 Unspecified hemorrhoids; E78.00 Pure hypercholesterolemia, unspecified; I10 Essential (primary) hypertension; Z86.73 Personal history of transient ischemic attack (TIA), and cerebral infarction without residual deficits; Z79.84 Long term (current) use of oral hypoglycemic drugs; Z96.659 Presence of unspecified artificial knee joint
CPT/HCPCS: 36415; 80053; 81003; 83036; 83690; 83735; 99283; A9270; J1815; 81001; 87086

== ENCOUNTER 2018-01-20 08:30 | Emergency (ER) | payer MEDICAID ==
[2018-01-20] MEDS ORDERED: INSULIN REGULAR HUMAN 100 UNIT/1 ML 10 ML MDV IVP STA ×2 (09:35→14:01)
[2018-01-20] MEDS ORDERED: SODIUM CHLORIDE 0.9% 1,000 ML IV ONE ×2 (09:35→11:18)
[2018-01-20 10:05] LABS: VBG BASE EXCESS 2.4 mmol/L (-2 - +2); VBG PCO2 51.8 mmHg (41-51); VBG PH 7.365 (7.31-7.41); VBG PO2 31.8 mmHg (25-47); VBG TOTAL CO2 30.5 mmol/L (24-29)
[2018-01-20 10:19] LABS: BASOPHILS # (AUTO) 0.1 10^3/uL (0.0-0.1); BASOPHILS % (AUTO) 1.2 %; EOSINOPHILS # (AUTO) 0.5 10^3/uL (0.0-0.7); EOSINOPHILS % (AUTO) 6.8 %; HGB - HEMOGLOBIN 14.6 g/dL (12.0-16.0); LYMPHOCYTES # (AUTO) 1.5 10^3/uL (1.5-3.5); LYMPHOCYTES % (AUTO) 20.8 %; MEAN CORPUSCULAR HEMOGLOBIN 29.4 pg (27.0-31.0); MEAN CORPUSCULAR HGB CONC 33.5 g/dL (32.0-36.0); MEAN CORPUSCULAR VOLUME 87.7 fL (81.0-99.0); MEAN PLATELET VOLUME 8.2 fL (7.9-10.8); MONOCYTES # (AUTO) 0.4 10^3/uL (0.0-1.0); MONOCYTES % (AUTO) 6.2 %; NEUTROPHILS # (AUTO) 4.7 10^3/uL (1.5-6.6); PLT - PLATELET COUNT 338 10^3/uL (130-450); RED BLOOD COUNT 4.96 10^6/uL (4.20-5.40); WHITE BLOOD COUNT 7.3 x10^3/uL (4.8-10.8)
[2018-01-20 10:22] LABS: BILIRUBIN,URINE NEGATIVE (NEGATIVE); GLUCOSE, URINE (UA) >=1000 mg/dL (NEGATIVE); KETONES,URINE (UA) NEGATIVE (NEGATIVE); LEUKOCYTE ESTERASE, URINE NEGATIVE (NEGATIVE); NITRITE,URINE NEGATIVE (NEGATIVE); OCCULT BLOOD,URINE SMALL (NEGATIVE); PH,URINE 5.5 PH (5.0-7.5); PROTEIN,URINE TRACE mg/dL (NEGATIVE); UROBILINOGEN,URINE 0.2 (NORMAL) E.U./dL (NORMAL)
[2018-01-20 10:29] LABS: CLARITY,URINE CLEAR (CLEAR)
[2018-01-20 10:36] LABS: ALBUMIN 3.9 g/dL (3.2-5.5); ALBUMIN/GLOBULIN RATIO 0.9 (1.0-2.2); ALKALINE PHOSPHATASE 137 IU/L (42-121); ALT ALANINE AMINOTRANSFERASE 52 IU/L (10-60); AST ASPARTATE AMINOTRANSFERASE 32 IU/L (10-42); BILIRUBIN,TOTAL 0.8 mg/dL (0.2-1.0); BUN - BLOOD UREA NITROGEN 11 mg/dL (6-20); CALCIUM 9.4 mg/dL (8.5-10.3); CARBON DIOXIDE - CO2 29 mmol/L (21-32); CHLORIDE 93 mmol/L (101-111); CREATININE 0.6 mg/dL (0.4-1.0); GFR - MDRD 105 (>89); GLUCOSE 336 mg/dL (70-100); LIPASE 17 U/L (22-51); SODIUM 132 mmol/L (135-145); TOTAL PROTEIN 8.3 g/dL (6.7-8.2)
[2018-01-20 10:37] LABS: RBC,URINE 0-5 /HPF (0-5)
[2018-01-20 10:38] LABS: AMORPHOUS SEDIMENT,UR Few /LPF; BACTERIA,URINE Few /HPF (None Seen); SQUAMOUS EPITHELIAL CELL,UR MOD Squamous (<= Few); YEAST,URINE PRESENT
[2018-01-20 11:03] LABS: KETONES, SERUM (ACETEST) LARGE (NEGATIVE)
[2018-01-20] MEDS ORDERED: INSULIN REGULAR HUMAN 100 UNIT/1 ML 10 ML MDV ONE (13:41)
[2018-01-20] MEDS ORDERED: MAGNESIUM HYDROXIDE 2,400 MG/30 ML UDC PO STA (14:28)
--- NOTE | 2018-01-20 14:28 | ED Physician Documentation ---
History of Present Illness - Stated complaint Stated Complaint: CONSTIPATED - Chief complaint Chief Complaint: General - History obtained from History obtained from: Patient - History of Present Illness Timing: How many days ago (8) - Additonal information Additional information: 52 y/o homeless diabetic female has become constipated and she continues to be constipated. Review of Systems Constitutional: reports: Fatigue. denies: Fever, Chills Eyes: denies: Decreased vision Ears: denies: Ear pain Nose: denies: Congestion Throat: denies: Sore throat Cardiac: denies: Chest pain / pressure, Palpitations Respiratory: denies: Dyspnea, Cough GI: reports: Abdominal Pain, Constipation. denies: Nausea, Vomiting : denies: Dysuria, Frequency Skin: denies: Rash Musculoskeletal: denies: Neck pain, Back pain, Extremity pain Neurologic: denies: Generalized weakness, Focal weakness, Numbness PD PAST MEDICAL HISTORY - Past Medical History Past Medical History: Yes Cardiovascular: Hypertension, High cholesterol Neuro: TIA Endocrine/Autoimmune: Type 2 diabetes GI: None : None Psych: Depression Musculoskeletal: None - Past Surgical History Past Surgical History: Yes General: Cholecystectomy Ortho: Knee replacement - Present Medications Home Medications: Ambulatory Orders Medication Instructions Recorded Confirmed metFORMIN [Glucophage] 500 mg PO BIDWM #30 tablet 11/08/17 Blood Sugar Diagnostic [Glucometer 1 strip MC BID #100 strip 01/16/18 Strips] Blood-Glucose Meter [Glucometer] 1 each MC BID #1 each 01/16/18 Hydrocortisone Acetate [Anucort-Hc] 25 mg RC DAILY #5 supp.rect 01/16/18 Tramadol HCl 50 mg PO Q6H PRN #20 tablet 01/16/18 glyBURIDE [Glyburide] 5 mg PO DAILY #30 tablet 01/16/18 - Allergies Allergies/Adverse Reactions: Allergies Allergy/AdvReac Type Severity Reaction Status Date / Time Penicillins Allergy Rash Verified 01/16/18 11:39 - Social History Does the pt smoke?: No Smoking Status: Never smoker Does the pt drink ETOH?: No Does the pt have substance abuse?: No - Immunizations Immunizations are current?: Yes - POLST Patient has POLST: No PD ED PE NORMAL - Vitals Vital signs reviewed: Yes (hypertensive ) - General General: Alert and oriented X 3, No acute distress, Well developed/nourished - HEENT HEENT: Atraumatic, PERRL, EOMI, Other (dry mucous membranes with poor dentition ) - Neck Neck: Supple, no meningeal sign, No bony TTP - Cardiac Cardiac: No murmur, Other (tachy to 100) - Respiratory Respiratory: No respiratory distress, Clear bilaterally - Abdomen Abdomen: Soft, Non tender - Rectal Rectal: Other (senior sas developer present: Niki stool in vault is soft and abundant. ) - Back Back: No CVA TTP, No spinal TTP - Derm Derm: Normal color, Warm and dry, No rash - Extremities Extremities: No deformity - Neuro Neuro: Alert and oriented X 3, No motor deficit, No sensory deficit, Normal speech Eye Opening: Spontaneous Motor: Obeys Commands Verbal: Oriented GCS Score: 15 - Psych Psych: Normal mood, Normal affect Results - Vitals Vitals: Vital Signs - 24 hr 01/20/18 01/20/18 08:57 14:34 Temperature 36 C L 36.5 C Heart Rate 96 84 Respiratory 18 20 Rate Blood Pressure 160/100 H 151/74 H O2 Saturation 99 100 Oxygen O2 Source Room air - Labs Labs: Laboratory Tests 01/20/18 01/20/18 01/20/18 09:55 09:55 09:55 WBC 7.3 RBC 4.96 Hgb 14.6 Hct 43.6 MCV 87.7 MCH 29.4 MCHC 33.5 RDW 14.0 Plt Count 338 MPV 8.2 Neut # 4.7 Lymph # 1.5 [place] # 0.4 Eos # 0.5 Baso # 0.1 Absolute Nucleated RBC 0.00 Nucleated RBC % 0.0 VBG pH 7.365 VBG pCO2 51.8 H VBG pO2 31.8 VBG HCO3 28.9 H VBG Total CO2 30.5 H VBG O2 Saturation 64.9 VBG Base Excess 2.4 H Sodium 132 L Potassium 3.8 Chloride 93 L Carbon Dioxide 29 Anion Gap 10.0 BUN 11 Creatinine 0.6 Estimated GFR (MDRD) 105 Glucose 336 H POC Whole Bld Glucose Calcium 9.4 Total Bilirubin 0.8 AST 32 ALT 52 Alkaline Phosphatase 137 H Total Protein 8.3 H Albumin 3.9 Globulin 4.4 H Albumin/Globulin Ratio 0.9 L Lipase 17 L Urine Color Urine Clarity Urine pH Ur Specific [place] Urine Protein Urine Glucose (UA) Urine Ketones Urine Occult Blood Urine Nitrite Urine Bilirubin Urine Urobilinogen Ur Leukocyte Esterase Urine RBC Urine WBC Ur Squamous Epith Cells Amorphous Sediment Urine Bacteria Urine Yeast Ur Microscopic Review Urine Culture Comments Serum Ketones LARGE H 01/20/18 01/20/18 01/20/18 10:00 10:03 10:59 WBC RBC Hgb Hct MCV MCH MCHC RDW Plt Count MPV Neut # Lymph # [place] # Eos # Baso # Absolute Nucleated RBC Nucleated RBC % VBG pH VBG pCO2 VBG pO2 VBG HCO3 VBG Total CO2 VBG O2 Saturation VBG Base Excess Sodium Potassium Chloride Carbon Dioxide Anion Gap BUN Creatinine Estimated GFR (MDRD) Glucose POC Whole Bld Glucose 397 H 196 H Calcium Total Bilirubin AST ALT Alkaline Phosphatase Total Protein Albumin Globulin Albumin/Globulin Ratio Lipase Urine Color YELLOW Urine Clarity CLEAR Urine pH 5.5 Ur Specific [place] 1.015 Urine Protein TRACE Urine Glucose (UA) >=1000 H Urine Ketones NEGATIVE Urine Occult Blood SMALL H Urine Nitrite NEGATIVE Urine Bilirubin NEGATIVE Urine Urobilinogen 0.2 (NORMAL) Ur Leukocyte Esterase NEGATIVE Urine RBC 0-5 Urine WBC 0-3 Ur Squamous Epith Cells MOD Squamous H Amorphous Sediment Few Urine Bacteria Few Urine Yeast PRESENT Ur Microscopic Review INDICATED Urine Culture Comments NOT INDICATED Serum Ketones 01/20/18 01/20/18 13:30 14:09 WBC RBC Hgb Hct MCV MCH MCHC RDW Plt Count MPV Neut # Lymph # [place] # Eos # Baso # Absolute Nucleated RBC Nucleated RBC % VBG pH VBG pCO2 VBG pO2 VBG HCO3 VBG Total CO2 VBG O2 Saturation VBG Base Excess Sodium Potassium Chloride Carbon Dioxide Anion Gap BUN Creatinine Estimated GFR (MDRD) Glucose POC Whole Bld Glucose 254 H 229 H Calcium Total Bilirubin AST ALT Alkaline Phosphatase Total Protein Albumin Globulin Albumin/Globulin Ratio Lipase Urine Color Urine Clarity Urine pH Ur Specific [place] Urine Protein Urine Glucose (UA) Urine Ketones Urine Occult Blood Urine Nitrite Urine Bilirubin Urine Urobilinogen Ur Leukocyte Esterase Urine RBC Urine WBC Ur Squamous Epith Cells Amorphous Sediment Urine Bacteria Urine Yeast Ur Microscopic Review Urine Culture Comments Serum Ketones PD MEDICAL DECISION MAKING - ED course Complexity details: reviewed old records, reviewed results, re-evaluated patient , considered differential, d/w patient ED course: 52-year-old diabetic female has been constipated for the past 8 days. She relates that her blood sugars have been running high for more than a month. Sugars have been over 500 and she today is dehydrated with a sugar over 400 and she is administered saline and insulin with the goal to get her sugar under 200. She is administered 2 L of saline and 2 10 unit administrations of intravenous regular insulin. Her blood sugar is about 200 at discharge. She is administered an enema with relief. Departure - Departure Disposition: 01 Home, Self Care Clinical Impression: Diabetes type 2, uncontrolled Qualifiers: Diabetes mellitus complication status: with other specified complication Diabetes mellitus [facility] insulin use: without [facility] use Qualified Code(s) : E11.69 - Type 2 diabetes mellitus with other specified complication Constipation Qualifiers: Constipation type: unspecified constipation type Qualified Code(s): K59.00 - Constipation, unspecified Condition: Stable Instructions: ED Constipation, ED Hyperglycemia Diabetic Follow-Up: [facility] [Provider Group] Discharge Date/Time: 01/20/18 14:42
[2018-01-20 14:35] VITALS: BP 151/74
== END 2018-01-20 14:42 | disposition home or self-care (01) ==
LOC: ED 08:30
DX: E11.69 Type 2 diabetes mellitus with other specified complication (principal); Z79.84 Long term (current) use of oral hypoglycemic drugs; K59.00 Constipation, unspecified; Z59.0 Homelessness; I10 Essential (primary) hypertension; E78.00 Pure hypercholesterolemia, unspecified; Z86.73 Personal history of transient ischemic attack (TIA), and cerebral infarction without residual deficits
CPT/HCPCS: 36415; 80053; 81001; 82009; 82803; 83690; 85025; 96360; 96361; 99284; A9270; J1815; 81003; 87086

== ENCOUNTER 2018-01-27 15:00 | Outpatient (CLI) | payer MEDICAID | END 2018-01-27 15:01 | disposition EMS.NT | LOC: EMS 15:00 | PROVIDERS: ATTEND Surgery | DX: F41.9 Anxiety disorder, unspecified (principal); R13.10 Dysphagia, unspecified; R05 Cough; R11.10 Vomiting, unspecified ==

== ENCOUNTER 2018-02-07 07:57 | Emergency (ER) | payer MEDICAID ==
[2018-02-07] MEDS ORDERED: BENZONATATE 100 MG CAPSULE PO STA (08:13)
[2018-02-07] MEDS ORDERED: ALBUTEROL NEB 2.5 MG/3 ML INH STA (08:13)
[2018-02-07] MEDS ORDERED: guaiFENesin/DEXTROMETHORPHAN 10 ML UDC PO STA (08:13)
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
[2018-02-07] MEDS ORDERED: glyBURIDE 2.5 MG TABLET PO STA (08:28)
[2018-02-07] MEDS ORDERED: metFORMIN 500 MG TABLET PO STA (08:28)
--- NOTE | 2018-02-07 08:35 | XRAY Report ---
EXAM: CHEST RADIOGRAPHY EXAM DATE: 02/07/2018 08:26 AM. CLINICAL HISTORY: Cough wheeze exposed to pna. COMPARISON: 11/08/2017. TECHNIQUE: 2 views. FINDINGS: Lungs/Pleura: No focal consolidation evident. No pleural effusion. No pneumothorax. Normal volumes. Mediastinum: Heart and mediastinal contours are unremarkable. Other: Degenerative change of the spine as before. IMPRESSION: No radiographically apparent acute abnormality in the chest. No significant change from p rior. [facility] Referring Provider Line: [phone] SITE ID: [id number]
--- NOTE | 2018-02-07 08:35 | XRAY Preliminary Report ---
Exam: XR CHEST 2 VIEW X-RAY IMPRESSION: No radiographically apparent acute abnormality in the chest. No significant change from p rior. [facility] SITE ID: [id number]
[2018-02-07 09:29] VITALS: BP 161/92
== END 2018-02-07 09:29 | disposition home or self-care (01) ==
LOC: ED 07:57
DX: J40 Bronchitis, not specified as acute or chronic (principal); E11.9 Type 2 diabetes mellitus without complications; I10 Essential (primary) hypertension; E78.00 Pure hypercholesterolemia, unspecified; Z86.73 Personal history of transient ischemic attack (TIA), and cerebral infarction without residual deficits; Z79.84 Long term (current) use of oral hypoglycemic drugs; Z96.659 Presence of unspecified artificial knee joint
CPT/HCPCS: 71046; 87275; 87276; 94640; 94664; 99283; A9270

== ENCOUNTER 2018-02-24 18:34 | Outpatient (CLI) | payer MEDICAID | END 2018-02-24 18:35 | disposition critical access hospital (66) | LOC: EMS 18:34 | PROVIDERS: ATTEND Surgery | DX: R05 Cough (principal); R07.89 Other chest pain; R53.1 Weakness | CPT/HCPCS: A0425; A0429 ==

== ENCOUNTER 2018-02-24 18:53 | Emergency (ER) | payer MEDICAID ==
[2018-02-24] MEDS ORDERED: SODIUM CHLORIDE 0.9% 1,000 ML IV ONE (19:03)
[2018-02-24] MEDS ORDERED: IPRATROPIUM/ALBUTEROL 3 ML NEB INH STA (19:03)
--- NOTE | 2018-02-24 19:05 | ED Physician Documentation ---
PD HPI URI - Stated complaint Stated Complaint: FEVER, BODY ACHES,COUGH - History obtained from History obtained from: Patient - History of Present Illness Timing - onset: Other (She was diagnosed with clinical pneumonia about 2 weeks ago and finish a Z-Fred. She also may have underlying COPD from secondhand smoke. She got better but over the last few days has gotten worse again with a nonproductive severe cough and posttussive emesis as well as fevers and shortness of breath and chest pain only with coughing.) Review of Systems Constitutional: reports: Fever, Chills Ears: denies: Ear pain Nose: denies: Rhinorrhea / runny nose, Congestion Throat: reports: Sore throat Cardiac: denies: Chest pain / pressure, Palpitations Respiratory: reports: Dyspnea, Cough PD PAST MEDICAL HISTORY - Past Medical History Cardiovascular: Hypertension, High cholesterol Neuro: TIA Endocrine/Autoimmune: Type 2 diabetes GI: None : None Psych: Depression Musculoskeletal: None - Past Surgical History Past Surgical History: Yes General: Cholecystectomy Ortho: Knee replacement - Present Medications Home Medications: Ambulatory Orders Medication Instructions Recorded Confirmed metFORMIN [Glucophage] 500 mg PO BIDWM #30 tablet 11/08/17 Blood Sugar Diagnostic [Glucometer 1 strip MC BID #100 strip 01/16/18 Strips] Blood-Glucose Meter [Glucometer] 1 each MC BID #1 each 01/16/18 Hydrocortisone Acetate [Anucort-Hc] 25 mg RC DAILY #5 supp.rect 01/16/18 Tramadol HCl 50 mg PO Q6H PRN #20 tablet 01/16/18 glyBURIDE [Glyburide] 5 mg PO DAILY #30 tablet 01/16/18 Albuterol Sulfate [Proair Hfa 2 puffs INH Q4H PRN #1 inhaler 02/07/18 Inhaler] Benzonatate [Tessalon] 100 mg PO TID PRN #20 capsule 02/07/18 guaiFENesin/DEXTROMETHORPHAN 10 ml PO Q6H PRN #120 ml 02/07/18 [Robitussin Dm] Albuterol Sulfate [Proventil Hfa 1 - 2 puffs IH Q4H PRN #1 02/24/18 Inhaler] hfa.aer.ad Oseltamivir [Tamiflu] 75 mg PO BID #10 capsule 02/24/18 guaiFENesin/CODEINE [Robitussin AC] 5 - 10 ml PO Q6H PRN #120 ml 02/24/18 - Allergies Allergies/Adverse Reactions: Allergies Allergy/AdvReac Type Severity Reaction Status Date / Time Penicillins Allergy Rash Verified 02/07/18 08:07 - Social History Does the pt smoke?: No Smoking Status: Never smoker Does the pt drink ETOH?: No Does the pt have substance abuse?: No - Immunizations Immunizations are current?: Yes - POLST Patient has POLST: No PD ED PE NORMAL - Vitals Vital signs reviewed: Yes - General General: Alert and oriented X 3, No acute distress - HEENT HEENT: PERRL, EOMI - Neck Neck: Supple, no meningeal sign, No bony TTP - Cardiac Cardiac: RRR, No murmur - Respiratory Respiratory: No respiratory distress, Clear bilaterally - Abdomen Abdomen: Non tender - Extremities Extremities: No edema, No calf tenderness / cord - Neuro Neuro: Alert and oriented X 3, Normal speech - Psych Psych: Normal mood, Normal affect Results - Vitals Vitals: Vital Signs - 24 hr 02/24/18 02/24/18 19:12 19:41 Temperature 37.0 C Heart Rate 90 98 Respiratory 28 H 15 Rate Blood Pressure 170/121 H O2 Saturation 97 Oxygen O2 Source Room air - EKG (time done) 1912 Rate: Rate (enter#) (90) Rhythm: NSR [place]: Normal Intervals: RBBB QRS: Normal Ischemia: Normal ST segments Compare to prior EKG: Unchanged from prior EKG (Right bundle branch block is old compared with November 08 of this year.) Computer interpretation: Agree with computer - Labs Labs: Laboratory Tests 02/24/18 02/24/18 02/24/18 19:30 19:30 19:30 WBC 4.4 L RBC 4.36 Hgb 12.6 Hct 37.3 MCV 85.6 MCH 28.9 MCHC 33.8 RDW 13.8 Plt Count 254 MPV 7.9 Neut # 3.2 Lymph # 0.7 L Edd[place] # 0.4 Eos # 0.1 Baso # 0.0 Absolute Nucleated RBC 0.00 Nucleated RBC % 0.0 Sodium 133 L Potassium 3.1 L Chloride 98 L Carbon Dioxide 25 Anion Gap 10.0 BUN 9 Creatinine 0.7 Estimated GFR (MDRD) 88 L Glucose 213 H Calcium 8.5 Total Bilirubin 0.6 AST 53 H ALT 60 Alkaline Phosphatase 177 H Total Protein 7.5 Albumin 3.7 Globulin 3.8 Albumin/Globulin Ratio 1.0 Lipase 21 L Influenza A (Rapid) Negative Influenza B (Rapid) POSITIVE H PD MEDICAL DECISION MAKING - ED course ED course: This is a 52-year-old woman with diabetes he has had about a 2 day illness of increasing cough, fevers, body aches, and chest pain with coughing. Her EKG is unchanged from prior. Her chest x-ray is clear and she is found to have influenza B. 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 Diabetes mellitus complication status: with hyperglycemia Qualified Code( s): E11.65 - Type 2 diabetes mellitus with hyperglycemia Condition: Good Record reviewed to determine appropriate education?: Yes Instructions: Medication: Tamiflu (Oseltamivir), ED Flu Prescriptions: Albuterol Sulfate [Proventil Hfa Inhaler] 1 - 2 puffs IH Q4H PRN #1 hfa.aer.ad PRN Reason: Cough guaiFENesin/CODEINE [Robitussin AC] 5 - 10 ml PO Q6H PRN #120 ml PRN Reason: Cough Oseltamivir [Tamiflu] 75 mg PO BID #10 capsule Comments: Call your doctor to arrange a follow-up appointment, make the next available appointment. In the interim, return anytime if worse or if new symptoms develop. Your blood pressure was elevated today on check into the emergency department. This does not mean that you have hypertension, it is a common phenomenon to come to the emergency department and have elevated blood pressure. I recommend that you see your primary care physician within the week to have it rechecked when you are feeling better.
[2018-02-24] MEDS ORDERED: guaiFENesin/CODEINE 5 ML UDC PO STA (19:07)
--- NOTE | 2018-02-24 19:40 | XRAY Report ---
EXAM: CHEST RADIOGRAPHY EXAM DATE: 02/24/2018 07:18 PM. CLINICAL HISTORY: Cough. COMPARISON: 02/07/2018. TECHNIQUE: 2 views. FINDINGS: Lungs/Pleura: No focal opacities evident. No pleural effusion. No pneumothorax. Normal volumes. Mediastinum: Heart and mediastinal contours are unremarkable. Other: None. IMPRESSION: No acute intrathoracic plain film abnormality. [facility] Referring Provider Line: [phone] SITE ID: [id number]
[2018-02-24 19:57] LABS: BASOPHILS % (AUTO) 0.9 %; EOSINOPHILS # (AUTO) 0.1 10^3/uL (0.0-0.7); EOSINOPHILS % (AUTO) 2.1 %; HGB - HEMOGLOBIN 12.6 g/dL (12.0-16.0); LYMPHOCYTES # (AUTO) 0.7 10^3/uL (1.5-3.5); LYMPHOCYTES % (AUTO) 14.9 %; MEAN CORPUSCULAR HEMOGLOBIN 28.9 pg (27.0-31.0); MEAN CORPUSCULAR HGB CONC 33.8 g/dL (32.0-36.0); MEAN CORPUSCULAR VOLUME 85.6 fL (81.0-99.0); MEAN PLATELET VOLUME 7.9 fL (7.9-10.8); MONOCYTES # (AUTO) 0.4 10^3/uL (0.0-1.0); MONOCYTES % (AUTO) 9.3 %; NEUTROPHILS # (AUTO) 3.2 10^3/uL (1.5-6.6); NEUTROPHILS % (AUTO) 72.8 %; PLT - PLATELET COUNT 254 10^3/uL (130-450); RED BLOOD COUNT 4.36 10^6/uL (4.20-5.40); RED CELL DISTRIBUTION WIDTH 13.8 % (12.0-15.0); WHITE BLOOD COUNT 4.4 x10^3/uL (4.8-10.8)
[2018-02-24 20:04] LABS: ALBUMIN 3.7 g/dL (3.2-5.5); BILIRUBIN,TOTAL 0.6 mg/dL (0.2-1.0); CALCIUM 8.5 mg/dL (8.5-10.3); CREATININE 0.7 mg/dL (0.4-1.0); TOTAL PROTEIN 7.5 g/dL (6.7-8.2)
[2018-02-24] MEDS ORDERED: OSELTAMIVIR 75 MG CAPSULE PO STA (20:06)
[2018-02-24] MEDS ORDERED: POTASSIUM BICARB 25 MEQ TABLET PO STA (20:07)
[2018-02-24 20:25] VITALS: BP 136/86
== END 2018-02-24 21:01 | disposition home or self-care (01) ==
LOC: EDUNIT# → EDBD → ED 18:53
DX: J10.1 Influenza due to other identified influenza virus with other respiratory manifestations (principal); E11.65 Type 2 diabetes mellitus with hyperglycemia; Z79.84 Long term (current) use of oral hypoglycemic drugs; I45.10 Unspecified right bundle-branch block; R94.31 Abnormal electrocardiogram [ECG] [EKG]; I10 Essential (primary) hypertension; Z86.73 Personal history of transient ischemic attack (TIA), and cerebral infarction without residual deficits; R03.0 Elevated blood-pressure reading, without diagnosis of hypertension
CPT/HCPCS: 36415; 71046; 80053; 83690; 85025; 87275; 87276; 93005; 94664; 96360; 99283; 99284; A9270; 94640

== ENCOUNTER 2018-03-06 08:00 | Outpatient (CLI) | payer MEDICAID ==
[2018-03-06 12:49] LABS: BASOPHILS % (AUTO) 0.8 %; EOSINOPHILS # (AUTO) 0.6 10^3/uL (0.0-0.7); EOSINOPHILS % (AUTO) 9.2 %; HGB - HEMOGLOBIN 12.5 g/dL (12.0-16.0); LYMPHOCYTES # (AUTO) 1.7 10^3/uL (1.5-3.5); LYMPHOCYTES % (AUTO) 28.4 %; MEAN CORPUSCULAR HEMOGLOBIN 28.9 pg (27.0-31.0); MEAN CORPUSCULAR HGB CONC 33.3 g/dL (32.0-36.0); MEAN CORPUSCULAR VOLUME 86.9 fL (81.0-99.0); MEAN PLATELET VOLUME 8.5 fL (7.9-10.8); MONOCYTES # (AUTO) 0.5 10^3/uL (0.0-1.0); MONOCYTES % (AUTO) 7.5 %; NEUTROPHILS # (AUTO) 3.3 10^3/uL (1.5-6.6); NEUTROPHILS % (AUTO) 54.1 %; PLT - PLATELET COUNT 314 10^3/uL (130-450); RED BLOOD COUNT 4.31 10^6/uL (4.20-5.40)
[2018-03-06 13:13] LABS: HB2 TOTAL 13.9 g/dL; HEMOGLOBIN A1C 1.38 g/dL; HEMOGLOBIN A1C % 11.2 % (4.6-6.2)
[2018-03-06 13:20] LABS: THYROID STIMULATING HORMONE 2.01 uIU/mL (0.34-5.60)
[2018-03-06 13:27] LABS: ALBUMIN 3.4 g/dL (3.2-5.5); ALBUMIN/GLOBULIN RATIO 0.8 (1.0-2.2); ALKALINE PHOSPHATASE 133 IU/L (42-121); ALT ALANINE AMINOTRANSFERASE 56 IU/L (10-60); AST ASPARTATE AMINOTRANSFERASE 44 IU/L (10-42); BILIRUBIN,TOTAL 0.6 mg/dL (0.2-1.0); BUN - BLOOD UREA NITROGEN 18 mg/dL (6-20); CALCIUM 8.8 mg/dL (8.5-10.3); CARBON DIOXIDE - CO2 25 mmol/L (21-32); CHLORIDE 101 mmol/L (101-111); CHOLESTEROL 135 mg/dL; CREATININE 0.7 mg/dL (0.4-1.0); GFR - MDRD 88 (>89); GLUCOSE 225 mg/dL (70-100); HDL CHOLESTEROL 27 mg/dL; LDL CHOLESTEROL,CALCULATED 52 mg/dL; LDL/HDL RATIO 1.9 (<4.4); SODIUM 135 mmol/L (135-145); TOTAL PROTEIN 7.5 g/dL (6.7-8.2); VLDL CHOLESTEROL 56 mg/dL
[2018-03-06 13:31] LABS: FOLATE 18.54 ng/mL (5.90 - >24.8)
[2018-03-06 15:42] LABS: RHEUMATOID FACTOR NEGATIVE (Negative)
[2018-03-08 13:36] LABS: ANA SCREEN NEGATIVE (NEGATIVE)
== END 2018-03-06 08:01 | disposition home or self-care (01) ==
LOC: LAB.N 08:00
PROVIDERS: ATTEND Nurse Practitioner
DX: R53.83 Other fatigue (principal); E11.40 Type 2 diabetes mellitus with diabetic neuropathy, unspecified; E55.9 Vitamin D deficiency, unspecified; I10 Essential (primary) hypertension; M79.643 Pain in unspecified hand; M15.1 Heberden's nodes (with arthropathy)
CPT/HCPCS: 36415; 80053; 80061; 82043; 82306; 82607; 82746; 83036; 83721; 84443; 85025; 86038; 86430

== ENCOUNTER 2018-03-11 07:36 | Outpatient (CLI) | payer MEDICAID | END 2018-03-11 07:37 | disposition critical access hospital (66) | LOC: EMS 07:36 | PROVIDERS: ATTEND Surgery | DX: R51 Headache (principal); R10.31 Right lower quadrant pain; V53.6XXA Passenger in pick-up truck or van injured in collision with car, pick-up truck or van in traffic accident, initial encounter; Y92.413 State road as the place of occurrence of the external cause | CPT/HCPCS: A0425; A0429 ==

== ENCOUNTER 2018-03-11 07:54 | Emergency (ER) | payer OTHER, MEDICAID ==
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
[2018-03-11] MEDS ORDERED: MORPHINE 2 MG/ML SYRINGE IVP STA (08:08)
[2018-03-11] MEDS ORDERED: IOPAMIDOL-300 100 ML VIAL IVP ONE (08:33)
[2018-03-11] MEDS ORDERED: IOPAMIDOL-300 100 ML VIAL ONE (08:36)
[2018-03-11 08:39] LABS: BASOPHILS # (AUTO) 0.1 10^3/uL (0.0-0.1); BASOPHILS % (AUTO) 1.1 %; BILIRUBIN,URINE NEGATIVE (NEGATIVE); EOSINOPHILS # (AUTO) 0.5 10^3/uL (0.0-0.7); EOSINOPHILS % (AUTO) 8.7 %; GLUCOSE, URINE (UA) >=1000 mg/dL (NEGATIVE); HGB - HEMOGLOBIN 12.8 g/dL (12.0-16.0); KETONES,URINE (UA) NEGATIVE (NEGATIVE); LEUKOCYTE ESTERASE, URINE TRACE (NEGATIVE); LYMPHOCYTES # (AUTO) 1.5 10^3/uL (1.5-3.5); LYMPHOCYTES % (AUTO) 27.7 %; MEAN CORPUSCULAR HEMOGLOBIN 28.4 pg (27.0-31.0); MEAN CORPUSCULAR VOLUME 86.2 fL (81.0-99.0); MEAN PLATELET VOLUME 7.9 fL (7.9-10.8); MONOCYTES # (AUTO) 0.4 10^3/uL (0.0-1.0); MONOCYTES % (AUTO) 7.8 %; NEUTROPHILS # (AUTO) 3.1 10^3/uL (1.5-6.6); NEUTROPHILS % (AUTO) 54.7 %; NITRITE,URINE NEGATIVE (NEGATIVE); OCCULT BLOOD,URINE NEGATIVE (NEGATIVE); PLT - PLATELET COUNT 314 10^3/uL (130-450); PROTEIN,URINE NEGATIVE (NEGATIVE); RED CELL DISTRIBUTION WIDTH 13.6 % (12.0-15.0); UROBILINOGEN,URINE 0.2 (NORMAL) E.U./dL (NORMAL); WHITE BLOOD COUNT 5.6 x10^3/uL (4.8-10.8)
[2018-03-11 08:51] LABS: CLARITY,URINE HAZY (CLEAR)
[2018-03-11 08:52] LABS: BACTERIA,URINE Many /HPF (None Seen); RBC,URINE 0-5 /HPF (0-5); SQUAMOUS EPITHELIAL CELL,UR MANY Squamous (<= Few)
[2018-03-11 08:54] LABS: ALBUMIN 3.4 g/dL (3.2-5.5); ALBUMIN/GLOBULIN RATIO 0.9 (1.0-2.2); BILIRUBIN,TOTAL 0.6 mg/dL (0.2-1.0); CALCIUM 9.1 mg/dL (8.5-10.3); CREATININE 0.7 mg/dL (0.4-1.0); TOTAL PROTEIN 7.4 g/dL (6.7-8.2)
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
[2018-03-11] MEDS ORDERED: KETOROLAC 60 MG/2 ML VIAL IVP STA (10:00)
[2018-03-11] MEDS ORDERED: MORPHINE 10 MG/ML VIAL IVP STA (10:00)
[2018-03-11] MEDS ORDERED: oxyCOD/ACETAMIN 5 MG/325 MG TABLET PO STA (10:02)
[2018-03-11 10:10] VITALS: BP 179/83
== END 2018-03-11 10:08 | disposition home or self-care (01) ==
LOC: EDUNIT# → ED 07:54
DX: S09.90XA Unspecified injury of head, initial encounter (principal); S00.31XA Abrasion of nose, initial encounter; V59.50XA Passenger in pick-up truck or van injured in collision with unspecified motor vehicles in traffic accident, initial encounter; R59.1 Generalized enlarged lymph nodes; I10 Essential (primary) hypertension; E78.00 Pure hypercholesterolemia, unspecified; E11.9 Type 2 diabetes mellitus without complications; Z79.84 Long term (current) use of oral hypoglycemic drugs; Z96.659 Presence of unspecified artificial knee joint
CPT/HCPCS: 36415; 70450; 71260; 72125; 74177; 80053; 81001; 83690; 85025; 96374; 99284; A9270; J2270; Q9967; 81003; 87086

== ENCOUNTER 2018-04-09 09:46 | Outpatient (CLI) | payer MEDICAID | END 2018-04-09 09:47 | disposition home or self-care (01) | LOC: SC 09:46 | PROVIDERS: ATTEND Internal Medicine Pulmonary Disease | DX: G47.30 Sleep apnea, unspecified (principal); G47.10 Hypersomnia, unspecified; G47.8 Other sleep disorders; R06.83 Snoring; G47.00 Insomnia, unspecified | CPT/HCPCS: 99203; 99212 ==

== ENCOUNTER 2018-08-10 08:00 | Outpatient (CLI) | payer MEDICAID ==
[2018-08-10 12:38] LABS: ALBUMIN 3.7 g/dL (3.2-5.5); ALBUMIN/GLOBULIN RATIO 0.8 (1.0-2.2); ALKALINE PHOSPHATASE 116 IU/L (42-121); ALT ALANINE AMINOTRANSFERASE 33 IU/L (10-60); AST ASPARTATE AMINOTRANSFERASE 24 IU/L (10-42); BILIRUBIN,TOTAL 0.7 mg/dL (0.2-1.0); BUN - BLOOD UREA NITROGEN 17 mg/dL (6-20); CALCIUM 9.2 mg/dL (8.5-10.3); CARBON DIOXIDE - CO2 25 mmol/L (21-32); CHLORIDE 96 mmol/L (101-111); CHOL/HDL RATIO 6.8 (<4.4); CHOLESTEROL 191 mg/dL; CREATININE 0.7 mg/dL (0.4-1.0); GFR - MDRD 88 (>89); GLUCOSE 332 mg/dL (70-100); HDL CHOLESTEROL 28 mg/dL; LDL CHOLESTEROL,CALCULATED 101 mg/dL; LDL/HDL RATIO 3.6 (<4.4); SODIUM 133 mmol/L (135-145); TOTAL PROTEIN 8.3 g/dL (6.7-8.2); VLDL CHOLESTEROL 62 mg/dL
[2018-08-10 12:41] LABS: HB2 TOTAL 15.1 g/dL; HEMOGLOBIN A1C 1.64 g/dL; HEMOGLOBIN A1C % 12.1 % (4.6-6.2)
== END 2018-08-10 08:01 | disposition home or self-care (01) ==
LOC: LAB.N 08:00
PROVIDERS: ATTEND Nurse Practitioner
DX: E11.40 Type 2 diabetes mellitus with diabetic neuropathy, unspecified (principal); E55.9 Vitamin D deficiency, unspecified
CPT/HCPCS: 36415; 80053; 80061; 82043; 82306; 83036; 83721; 84443

== ENCOUNTER 2018-12-07 11:03 | Outpatient (CLI) | payer MEDICAID ==
--- NOTE | 2018-12-07 14:28 | XRAY Report ---
Reason: KNEE JOIN PAIN Procedure Date: 12/07/2018 Accession Number: [id number] / [id number] Procedure: XRN - Knee 3 View RT CPT Code: FULL RESULT: EXAM: RIGHT KNEE RADIOGRAPHY EXAM DATE: 12/07/2018 11:33 AM. CLINICAL HISTORY: KNEE JOIN PAIN. COMPARISON: None. TECHNIQUE: 3 views. FINDINGS: Bones: Normal. No fractures or bone lesions. Joints: Moderate osteophyte formations in the medial and lateral compartments with mild osteophyte formations in the patellofemoral compartment. Trace joint effusion. Soft Tissues: Normal. No soft tissue swelling. IMPRESSION: Moderate osteophyte formations in the medial and lateral compartments. Trace joint effusion. [facility]
--- NOTE | 2018-12-09 09:04 | XRAY Report ---
Reason: Fell down stairs; hip pain right Procedure Date: 12/07/2018 Accession Number: [id number] / [id number] Procedure: XRN - Hips 2V BILAT CPT Code: FULL RESULT: EXAM: BILATERAL HIP RADIOGRAPHY EXAM DATE: 12/07/2018 11:33 AM. CLINICAL HISTORY: Fell down stairs; hip pain right. COMPARISON: None. TECHNIQUE: 2 views each. FINDINGS: Bones: Normal. No fractures or bone lesion. Right Hip: Mild degenerative changes in the right hip joint. Left Hip: Normal. No dislocation. The hip joint space is preserved. Soft Tissues: Normal. No soft tissue swelling. IMPRESSION: 1. Mild degenerative changes in the right hip joint. 2. No fracture. [facility]
== END 2018-12-07 11:04 | disposition home or self-care (01) ==
LOC: DI.N 11:03
PROVIDERS: ATTEND Nurse Practitioner
DX: M25.761 Osteophyte, right knee (principal); M25.461 Effusion, right knee; M16.11 Unilateral primary osteoarthritis, right hip
CPT/HCPCS: 73521

== ENCOUNTER 2018-12-29 10:03 | Emergency (ER) | payer MEDICAID ==
--- NOTE | 2018-12-29 12:17 | ED Physician Documentation ---
PD HPI URI - Stated complaint Stated Complaint: COUGH,SORE THOAT,TIGHTNESS IN CHEST - Chief complaint Chief Complaint: Resp - History obtained from History obtained from: Patient, Family - History of Present Illness Timing - onset: How many days ago (4) Timing duration: Days (4) Timing details: Gradual onset, Still present Associated symptoms: Fever, Chills, Nasal congestion, Rhinorrhea, Sinus pain, Dry cough Contributing factors: Sick contact Improves by: Rest, Medication Similar symptoms before: Has not had sx before Recently seen: Not recently seen - Additional information Additional information: 53-year-old diabetic female with cough and congestion has a bit of a sore throat and her diabetes has been poorly controlled. She is not taking her insulin. Review of Systems Constitutional: reports: Fever, Chills Eyes: denies: Decreased vision Ears: denies: Ear pain Nose: reports: Rhinorrhea / runny nose, Congestion Throat: reports: Sore throat Cardiac: denies: Chest pain / pressure, Palpitations Respiratory: reports: Cough. denies: Dyspnea GI: denies: Vomiting PD PAST MEDICAL HISTORY - Past Medical History Cardiovascular: Hypertension, High cholesterol Endocrine/Autoimmune: Type 2 diabetes GI: None : None Psych: Depression Musculoskeletal: None - Past Surgical History Past Surgical History: Yes General: Cholecystectomy Ortho: Knee replacement - Present Medications Home Medications: Ambulatory Orders Medication Instructions Recorded Confirmed Blood Sugar Diagnostic [Glucometer 1 strip MC BID #100 strip 01/16/18 04/11/18 Strips] Blood-Glucose Meter [Glucometer] 1 each MC BID #1 each 01/16/18 04/11/18 Albuterol Sulfate [Proventil Hfa 1 - 2 puffs IH Q4H PRN #1 02/24/18 04/11/18 Inhaler] [email or web address] Lisinopril 1 tab PO DAILY 03/11/18 04/11/18 Atorvastatin [Lipitor] 1 tab PO DAILY 04/11/18 04/11/18 Benzonatate [Tessalon Perle] 200 mg PO Q6H PRN 04/11/18 04/11/18 Cholecalciferol (Vitamin D3) 3,000 units PO DAILY 04/11/18 04/11/18 [Vitamin D3] Doxepin [SINEquan] 1 cap PO DAILY 04/11/18 04/11/18 Insulin Aspart [NovoLOG] 80 units INJ DAILY 04/11/18 04/11/18 Sertraline [Zoloft] 100 mg PO DAILY 04/11/18 04/11/18 hydrOXYzine pamoate [Hydroxyzine 1 cap PO DAILY 04/11/18 04/11/18 Pamoate] metFORMIN [Glucophage] 1,000 mg PO BIDWM 04/11/18 04/11/18 Amox/Clav 875/125 [Augmentin] 1 each PO Q12H #20 tablet 12/29/18 - Allergies Allergies/Adverse Reactions: Allergies Allergy/AdvReac Type Severity Reaction Status Date / Time Penicillins Allergy Rash Verified 12/29/18 10:17 - Social History Does the pt smoke?: No Smoking Status: Never smoker Does the pt drink ETOH?: No Does the pt have substance abuse?: No - Immunizations Immunizations are current?: Yes Immunizations: TDAP current <10years - POLST Patient has POLST: No PD ED PE NORMAL - General General: Alert and oriented X 3, No acute distress, Well developed/nourished - HEENT HEENT: Atraumatic, PERRL, EOMI, Other (right TM is distorted and inflamed the left is clear. The pharynx is with inflamation bilaterally ) - Neck Neck: Supple, no meningeal sign, No bony TTP - Cardiac Cardiac: RRR, No murmur - Respiratory Respiratory: No respiratory distress, Clear bilaterally - Abdomen Abdomen: Soft, Non tender - Back Back: No CVA TTP, No spinal TTP - Derm Derm: Normal color, Warm and dry, No rash - Extremities Extremities: No deformity, No edema - Neuro Neuro: Alert and oriented X 3, managing consultant clinical professor 2-12 intact, No motor deficit, No sensory deficit, Normal speech Eye Opening: Spontaneous Motor: Obeys Commands Verbal: Oriented GCS Score: 15 - Psych Psych: Normal mood, Normal affect Results - Vitals Vitals: Vital Signs - 24 hr 12/29/18 12/29/18 10:15 11:08 Temperature 36.9 C 37.6 C H Heart Rate 89 93 Respiratory 18 13 Rate Blood Pressure 146/85 H 125/94 H O2 Saturation 97 94 Oxygen O2 Source Room air PD MEDICAL DECISION MAKING - ED course Complexity details: considered differential, d/w patient, d/w family ED course: 53-year-old female with a history of diabetes has otitis on exam she does have insulin at home and will use her sliding scale. Departure - Departure Disposition: , Self Care Clinical Impression: Otitis media Qualifiers: Otitis media type: suppurative Chronicity: acute Laterality: right Recurrence: not specified as recurrent Spontaneous tympanic membrane rupture: without sp ontaneous rupture Qualified Code(s): H66.001 - Acute suppurative otitis media without spontaneous rupture of ear drum, right ear Condition: Stable Instructions: ED Otitis Media Acute Adult Follow-Up: Vickie Fagan DNP [Primary Care Provider] - Prescriptions: Amox/Clav 875/125 [Augmentin] 1 each PO Q12H #20 tablet
[2018-12-29 12:37] VITALS: BP 142/89
== END 2018-12-29 12:38 | disposition home or self-care (01) ==
LOC: ED 10:03
DX: H66.001 Acute suppurative otitis media without spontaneous rupture of ear drum, right ear (principal); E78.00 Pure hypercholesterolemia, unspecified; I10 Essential (primary) hypertension; E11.9 Type 2 diabetes mellitus without complications; Z79.84 Long term (current) use of oral hypoglycemic drugs; Z96.659 Presence of unspecified artificial knee joint
CPT/HCPCS: 99283

== ENCOUNTER 2019-01-16 10:45 | Outpatient (CLI) | payer MEDICAID | END 2019-01-16 10:46 | disposition critical access hospital (66) | LOC: EMS 10:45 | PROVIDERS: ATTEND Surgery | DX: F41.9 Anxiety disorder, unspecified (principal) | CPT/HCPCS: A0425; A0429 ==

== ENCOUNTER 2019-01-16 11:08 | Emergency (ER) | payer MEDICAID ==
[2019-01-16 11:20] VITALS: BP 162/99
[2019-01-16 11:31] LABS: MUDS CUTOFF CONCENTRATIONS CUTOFF CONC BELOW:
[2019-01-16 11:52] LABS: AMPHETAMINE SCREEN,URINE NEGATIVE (NEGATIVE); BENZODIAZEPINES SCREEN, URINE NEGATIVE (NEGATIVE); BILIRUBIN,URINE NEGATIVE (NEGATIVE); CLARITY,URINE CLEAR (CLEAR); COCAINE SCREEN URINE NEGATIVE (NEGATIVE); GLUCOSE, URINE (UA) 500 mg/dL (NEGATIVE); KETONES,URINE (UA) NEGATIVE (NEGATIVE); LEUKOCYTE ESTERASE, URINE TRACE (NEGATIVE); METHADONE SCREEN, URINE NEGATIVE (NEGATIVE); METHAMPHETAMINES SCREEN, URINE NEGATIVE (NEGATIVE); NITRITE,URINE NEGATIVE (NEGATIVE); OCCULT BLOOD,URINE NEGATIVE (NEGATIVE); OPIATE SCREEN, URINE NEGATIVE (NEGATIVE); OXYCODONE SCREEN, URINE NEGATIVE (NEGATIVE); PH,URINE 5.5 PH (5.0-7.5); PROPOXYPHENE SCREEN, URINE NEGATIVE (NEGATIVE); PROTEIN,URINE 30 mg/dL (NEGATIVE); TRICYCLIC ANTIDEPRESSANT,URINE NEGATIVE (NEGATIVE); UROBILINOGEN,URINE 0.2 (NORMAL) E.U./dL (NORMAL)
[2019-01-16 12:04] LABS: BASOPHILS # (AUTO) 0.1 10^3/uL (0.0-0.1); BASOPHILS % (AUTO) 1.1 %; EOSINOPHILS # (AUTO) 0.3 10^3/uL (0.0-0.7); EOSINOPHILS % (AUTO) 4.1 %; HGB - HEMOGLOBIN 14.6 g/dL (12.0-16.0); LYMPHOCYTES # (AUTO) 2.9 10^3/uL (1.5-3.5); LYMPHOCYTES % (AUTO) 38.6 %; MEAN CORPUSCULAR HEMOGLOBIN 29.7 pg (27.0-31.0); MEAN CORPUSCULAR HGB CONC 33.9 g/dL (32.0-36.0); MEAN CORPUSCULAR VOLUME 87.5 fL (81.0-99.0); MEAN PLATELET VOLUME 7.6 fL (7.9-10.8); MONOCYTES # (AUTO) 0.5 10^3/uL (0.0-1.0); MONOCYTES % (AUTO) 6.1 %; NEUTROPHILS # (AUTO) 3.8 10^3/uL (1.5-6.6); NEUTROPHILS % (AUTO) 50.1 %; PLT - PLATELET COUNT 368 10^3/uL (130-450); WHITE BLOOD COUNT 7.6 x10^3/uL (4.8-10.8)
[2019-01-16 12:18] LABS: ACETAMINOPHEN < 10 ug/mL (10-30); ALBUMIN 3.8 g/dL (3.2-5.5); ALKALINE PHOSPHATASE 89 IU/L (42-121); ALT ALANINE AMINOTRANSFERASE 48 IU/L (10-60); AST ASPARTATE AMINOTRANSFERASE 45 IU/L (10-42); BILIRUBIN,TOTAL 0.7 mg/dL (0.2-1.0); BUN - BLOOD UREA NITROGEN 18 mg/dL (6-20); CALCIUM 9.7 mg/dL (8.5-10.3); CARBON DIOXIDE - CO2 26 mmol/L (21-32); CHLORIDE 101 mmol/L (101-111); CREATININE 0.7 mg/dL (0.4-1.0); GFR - MDRD 88 (>89); GLUCOSE 199 mg/dL (70-100); LIPASE 54 U/L (22-51); SALICYLATE < 6.0 mg/dL; SODIUM 136 mmol/L (135-145); TOTAL PROTEIN 7.7 g/dL (6.7-8.2)
[2019-01-16 12:23] LABS: BACTERIA,URINE Rare /HPF (None Seen); RBC,URINE 0-5 /HPF (0-5); SQUAMOUS EPITHELIAL CELL,UR MOD Squamous (<= Few)
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
[2019-01-16] MEDS ORDERED: LORazepam 1 MG TABLET PO STA (12:52)
== END 2019-01-16 14:17 | disposition home or self-care (01) ==
LOC: EDUNIT# → ED 11:08
DX: F43.8 Other reactions to severe stress (principal); I10 Essential (primary) hypertension; E11.9 Type 2 diabetes mellitus without complications; F32.9 Major depressive disorder, single episode, unspecified; Z79.4 Long term (current) use of insulin
CPT/HCPCS: 36415; 80053; 80306; 80307; 80320; 80329; 81001; 83690; 84443; 85025; 99283; J8499; 81003; 87086

== ENCOUNTER 2019-03-22 19:18 | Emergency (ER) | payer MEDICAID ==
--- NOTE | 2019-03-22 20:29 | ED Physician Documentation ---
PD HPI URI - Stated complaint Stated Complaint: COUGH - Chief complaint Chief Complaint: Resp - History obtained from History obtained from: Patient - History of Present Illness Timing - onset: Yesterday Timing details: Abrupt onset Associated symptoms: Dry cough, Dyspnea. No: Fever, Chills, Sweats, Nasal congestion, Sinus pain, Productive cough, Hemoptysis, NVD Contributing factors: No: Sick contact Worsened by: Breathing Similar symptoms before: Diagnosis (Has had bronchitis before) - Additional information Additional information: Is a 53-year-old woman who presents with her complaints that about a month ago she had some dry heaving that resolved and then she started coughing very dry cough it resolved and then it came back again. Is been waxing and waning and started again last night and this time is the most uncomfortable it has been. Her throat feels like it is on fire. Anytime she takes a deep breath it gets sets of coughing fit. She is [id number]-vccosos cough syrup without relief and also took her 's Tessalon and used her albuterol without relief. She denies any earache. She has had a bit of a headache with some congestion. No peripheral edema. No history of DVT. Patient does have a histo ry of a mediastinal biopsy and thinks that she was diagnosed with sarcoid. She is not on prednisone or any treatment for that. She was never seen by physical security specialist. Review of Systems Constitutional: denies: Fever Ears: denies: Ear pain Nose: reports: Rhinorrhea / runny nose, Congestion Throat: reports: Sore throat Cardiac: denies: Chest pain / pressure, Palpitations Respiratory: reports: Dyspnea, Cough. denies: Hemoptysis, Wheezing GI: denies: Nausea, Vomiting, Diarrhea : denies: Dysuria PD PAST MEDICAL HISTORY - Past Medical History Past Medical History: Yes Cardiovascular: Hypertension, High cholesterol Respiratory: Asthma Neuro: None Endocrine/Autoimmune: Type 2 diabetes GI: None TRANSFORMATION ARCHITECT: None : None HEENT: None Psych: Depression Musculoskeletal: None Derm: None Other Past Medical History: (?) h/o sarcoid - Past Surgical History Past Surgical History: Yes General: Cholecystectomy Ortho: Knee replacement - Present Medications Home Medications: Ambulatory Orders Medication Instructions Recorded Confirmed Blood Sugar Diagnostic [Glucometer 1 strip MC BID #100 strip 03/27/18 06/20/18 Strips] Blood-Glucose Meter [Glucometer] 1 each MC BID #1 each 01/16/18 04/11/18 RX: Albuterol Sulfate [Proventil 1 - 2 puffs IH Q4H PRN #1 02/24/18 04/11/18 Hfa Inhaler] [email or web address] Lisinopril 1 tab PO DAILY 03/11/18 04/11/18 Benzonatate [Tessalon Perle] 200 mg PO Q6H PRN 04/11/18 04/11/18 Cholecalciferol (Vitamin D3) 3,000 units PO DAILY 04/11/18 04/11/18 [Vitamin D3] Insulin Aspart [NovoLOG] 80 units INJ DAILY 04/11/18 04/11/18 RX: Atorvastatin [Lipitor] 1 tab PO DAILY 04/11/18 04/11/18 RX: Doxepin [SINEquan] 1 cap PO DAILY 04/11/18 04/11/18 RX: Sertraline [Zoloft] 100 mg PO DAILY 04/11/18 04/11/18 RX: metFORMIN [Glucophage] 1,000 mg PO BIDWM 04/11/18 04/11/18 hydrOXYzine pamoate [Hydroxyzine 1 cap PO DAILY 04/11/18 04/11/18 Pamoate] Amox/Clav 875/125 [Augmentin] 1 each PO Q12H #20 tablet 12/29/18 LORazepam [Ativan] 0.5 mg PO BID PRN #8 tablet 01/16/19 RX: Albuterol Sulf [Ventolin Hfa 1 - 2 puffs INH Q4HR PRN #1 inhaler 03/22/19 Inhaler] guaiFENesin/CODEINE [Robitussin AC] 5 ml PO Q6H PRN #120 ml 03/22/19 - Allergies Allergies/Adverse Reactions: Allergies Allergy/AdvReac Type Severity Reaction Status Date / Time Penicillins Allergy Rash Verified 03/22/19 19:26 - Social History Does the pt smoke?: No Smoking Status: Never smoker Does the pt drink ETOH?: No Does the pt have substance abuse?: No - Immunizations Immunizations are current?: Yes Immunizations: TDAP current <10years - POLST Patient has POLST: No PD ED PE NORMAL - Vitals Vital signs reviewed: Yes - General General: Alert and oriented X 3, No acute distress, Well developed/nourished - HEENT HEENT: Atraumatic, PERRL, Moist mucous membranes, Pharynx benign - Neck Neck: Supple, no meningeal sign, No adenopathy, No JVD - Cardiac Cardiac: RRR, No murmur - Respiratory Respiratory: No respiratory distress - Abdomen Abdomen: Normal bowel sounds - Derm Derm: Normal color, Warm and dry, No rash - Neuro Neuro: Alert and oriented X 3, No motor deficit, No sensory deficit, Normal speech - Psych Psych: Normal mood, Normal affect Results - Vitals Vitals: Vital Signs - 24 hr 03/22/19 03/22/19 03/22/19 19:20 19:38 20:38 Temperature 36.2 C L Heart Rate 111 H Respiratory 16 17 17 Rate Blood Pressure 173/104 H O2 Saturation 96 03/22/19 03/22/19 21:21 21:31 Temperature 36.7 C Heart Rate 105 H Respiratory 16 17 Rate Blood Pressure 149/86 H O2 Saturation 95 Oxygen O2 Source Room air - Labs Labs: Laboratory Tests 03/22/19 03/22/19 03/22/19 19:25 19:35 19:46 POC Whole Bld Glucose 395 H 307 H Group A Strep Rapid Negative PD MEDICAL DECISION MAKING - ED course Complexity details: d/w patient, d/w family ED course: The Chest x-ray was clear. No mediastinal adenopathy. Strep screen was negative. Cultures been sent. I treated the patient symptomatically with inhaler and Robitussin with codeine cough syrup. I did not see any indication for antibiotics at this time. I strongly encouraged her to follow-up with her primary care provider to flush out the results of the biopsy that was done. If she has sarcoidosis she should be referred and evaluated by a physical security specialist es pecially if she is developing increasing difficulty with shortness of breath or coughing. Departure - Departure Disposition: 01 Home, Self Care Clinical Impression: Bronchitis Condition: Good Instructions: ED Upper Resp Infec No Abx Tx Follow-Up: Jorge Cardona PA-C [Primary Care Provider] - Prescriptions: RX: Albuterol Sulf [Ventolin Hfa Inhaler] 1 - 2 puffs INH Q4HR PRN #1 inhaler PRN Reason: Shortness Of Air/Wheezing guaiFENesin/CODEINE [Robitussin AC] 5 ml PO Q6H PRN #120 ml PRN Reason: Cough Comments: There is no pneumonia on the chest x-ray. Your strep screen was negative. I refilled your inhaler that you can use 1 to 2 puffs every 4-6 hours and a prescription for a few doses of Robitussin with codeine. Do not drive or operate machinery if you are taking the codeine.You need to follow-up with your primary provider to have them review the records on whether or not you do have sarcoidosis. If so and you are experiencing symptoms of coughing and shortness of breath, it may be reasonable to be evaluated by a math specialist.Return to the emergency department if your symptoms are worsening, you develop a fever or increasing shortness of breath. Discharge Date/Time: 03/22/19 21:32
--- NOTE | 2019-03-22 20:52 | XRAY Report ---
Reason: cough Procedure Date: 03/22/2019 Accession Number: [id number] / [id number] Procedure: XR - Chest 2 View X-Ray CPT Code: 16743 FULL RESULT: EXAM: CHEST RADIOGRAPHY EXAM DATE: 03/22/2019 08:46 PM. CLINICAL HISTORY: Cough. COMPARISON: CHEST 2 VIEW 02/24/2018 7:13 PM. TECHNIQUE: 2 views. FINDINGS: Lungs/Pleura: No focal opacities evident. No pleural effusion. No pneumothorax. Normal volumes. Mediastinum: Heart and mediastinal contours are unremarkable. Other: None. IMPRESSION: Normal 2-view chest radiography. [facility]
[2019-03-22 21:22] VITALS: BP 149/86
== END 2019-03-22 21:32 | disposition home or self-care (01) ==
LOC: ED 19:18
DX: J40 Bronchitis, not specified as acute or chronic (principal); I10 Essential (primary) hypertension; E11.9 Type 2 diabetes mellitus without complications; Z79.4 Long term (current) use of insulin
CPT/HCPCS: 71046; 87070; 87430; 99283

== ENCOUNTER 2019-05-09 09:49 | Outpatient (CLI) | payer MEDICAID ==
[2019-05-09 12:54] LABS: BASOPHILS # (AUTO) 0.1 10^3/uL (0.0-0.1); BASOPHILS % (AUTO) 0.7 %; EOSINOPHILS # (AUTO) 0.4 10^3/uL (0.0-0.7); EOSINOPHILS % (AUTO) 4.2 %; HGB - HEMOGLOBIN 14.7 g/dL (12.0-16.0); LYMPHOCYTES # (AUTO) 3.6 10^3/uL (1.5-3.5); LYMPHOCYTES % (AUTO) 42.7 %; MEAN CORPUSCULAR HEMOGLOBIN 29.2 pg (27.0-31.0); MEAN CORPUSCULAR HGB CONC 32.2 g/dL (32.0-36.0); MEAN CORPUSCULAR VOLUME 90.5 fL (81.0-99.0); MEAN PLATELET VOLUME 10.3 fL (7.9-10.8); MONOCYTES # (AUTO) 0.5 10^3/uL (0.0-1.0); MONOCYTES % (AUTO) 5.6 %; NEUTROPHILS # (AUTO) 3.9 10^3/uL (1.5-6.6); NEUTROPHILS % (AUTO) 46.3 %; PLT - PLATELET COUNT 412 10^3/uL (130-450); RED BLOOD COUNT 5.04 10^6/uL (4.20-5.40); RED CELL DISTRIBUTION WIDTH 13.2 % (12.0-15.0); WHITE BLOOD COUNT 8.5 x10^3/uL (4.8-10.8)
[2019-05-09 13:23] LABS: BUN - BLOOD UREA NITROGEN 13 mg/dL (6-20); CALCIUM 9.2 mg/dL (8.5-10.3); CARBON DIOXIDE - CO2 26 mmol/L (21-32); CHLORIDE 102 mmol/L (101-111); CHOL/HDL RATIO 7.1 (<4.4); CHOLESTEROL 205 mg/dL; CREATININE 0.7 mg/dL (0.4-1.0); GFR - MDRD 88 (>89); GLUCOSE 238 mg/dL (70-100); HDL CHOLESTEROL 29 mg/dL; SODIUM 137 mmol/L (135-145)
[2019-05-09 13:42] LABS: HB2 TOTAL 16.2 g/dL; HEMOGLOBIN A1C 1.5 g/dL; HEMOGLOBIN A1C % 10.6 % (4.6-6.2)
[2019-05-09 13:43] LABS: LDL CHOLESTEROL,DIRECT 134 mg/dL; LDLD/HDL RATIO 4.6 (<4.4)
== END 2019-05-09 23:59 | disposition home or self-care (01) ==
LOC: LAB.N 09:49
PROVIDERS: ATTEND Physician Assistant Medical
DX: E66.01 Morbid (severe) obesity due to excess calories (principal); E11.40 Type 2 diabetes mellitus with diabetic neuropathy, unspecified; R03.0 Elevated blood-pressure reading, without diagnosis of hypertension; Z86.79 Personal history of other diseases of the circulatory system
CPT/HCPCS: 36415; 80048; 80061; 83036; 83721; 85025

== ENCOUNTER 2019-06-03 12:06 | Emergency (ER) | payer MEDICAID ==
[2019-06-03] MEDS ORDERED: DEXAMETHASONE 10 MG/ML VIAL PO STA (13:16)
[2019-06-03] MEDS ORDERED: KETOROLAC 60 MG/2 ML VIAL IM STA (13:16)
[2019-06-03] MEDS ORDERED: CHERRY SYRUP 10 ML UDC PO ONE (13:16)
--- NOTE | 2019-06-03 13:19 | ED Physician Documentation ---
PD HPI BACK PAIN - Stated complaint Stated Complaint: RT HIP PX - Chief complaint Chief Complaint: Ext Problem - History obtained from History obtained from: Patient, Family - History of Present Illness Timing - onset: How many weeks ago (1) Timing - duration: Weeks (1) Timing - details: Gradual onset, Still present Location: Lower, Right Quality: Pain, Spasm, Sharp Associated symptoms: Numbness. No: Fever, Weakness, Incontinent of urine, Unable to urinate, Hematuria, Incontinent of stool Improves with: Rest, Position Worsened by: Movement Contributing factors: Lifting Similar symptoms before: Has not had sx before Recently seen: Not recently seen - Additional information Additional information: 53-year-old diabetic female has developed right low back pain radiating to her right hip. She has pain whenever she tries to bear weight on either leg. Pain is to the right hip and down the right leg into the right foot and she is having some numbness over the right great toe.She does not have a specific injury that she is aware. She does take sliding scale insulin. Review of Systems Constitutional: denies: Fever Respiratory: denies: Cough GI: denies: Vomiting Skin: denies: Rash Musculoskeletal: reports: Back pain, Extremity pain, Pain with weight bearing. denies: Neck pain Neurologic: reports: Numbness (To the right great toe). 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 : None HEENT: None Psych: Depression Musculoskeletal: None Derm: None - Past Surgical History Past Surgical History: Yes General: Cholecystectomy Ortho: Knee replacement - Present Medications Home Medications: Ambulatory Orders Medication Instructions Recorded Confirmed Blood Sugar Diagnostic [Glucometer 1 strip MC BID #100 strip 01/16/18 04/11/18 Strips] Blood-Glucose Meter [Glucometer] 1 each MC BID #1 each 01/16/18 04/11/18 Albuterol Sulfate [Proventil Hfa 1 - 2 puffs IH Q4H PRN #1 02/24/18 04/11/18 Inhaler] [email or web address] Lisinopril 1 tab PO DAILY 03/11/18 04/11/18 Atorvastatin [Lipitor] 1 tab PO DAILY 04/11/18 04/11/18 Benzonatate [Tessalon Perle] 200 mg PO Q6H PRN 04/11/18 04/11/18 Cholecalciferol (Vitamin D3) 3,000 units PO DAILY 04/11/18 04/11/18 [Vitamin D3] Doxepin [SINEquan] 1 cap PO DAILY 04/11/18 04/11/18 Insulin Aspart [NovoLOG] 80 units INJ DAILY 04/11/18 04/11/18 Sertraline [Zoloft] 100 mg PO DAILY 04/11/18 04/11/18 hydrOXYzine pamoate [Hydroxyzine 1 cap PO DAILY 04/11/18 04/11/18 Pamoate] metFORMIN [Glucophage] 1,000 mg PO BIDWM 04/11/18 04/11/18 Amox/Clav 875/125 [Augmentin] 1 each PO Q12H #20 tablet 12/29/18 LORazepam [Ativan] 0.5 mg PO BID PRN #8 tablet 01/16/19 Albuterol Sulf [Ventolin Hfa 1 - 2 puffs INH Q4HR PRN #1 inhaler 03/22/19 Inhaler] guaiFENesin/CODEINE [Robitussin AC] 5 ml PO Q6H PRN #120 ml 03/22/19 Cyclobenzaprine [Flexeril] 10 mg PO TID PRN #20 tablet 06/03/19 Hydrocodone/Acetaminophen 1 - 2 each PO Q6H PRN #14 tablet 06/03/19 [Hydrocodon-Acetaminophen 5-325] - Allergies Allergies/Adverse Reactions: Allergies Allergy/AdvReac Type Severity Reaction Status Date / Time Penicillins Allergy Rash Verified 06/03/19 12:39 - Social History Does the pt smoke?: No Smoking Status: Never smoker Does the pt drink ETOH?: No Does the pt have substance abuse?: No - Immunizations Immunizations are current?: Yes Immunizations: TDAP current <10years - POLST Patient has POLST: No PD ED PE NORMAL - Vitals Vital signs reviewed: Yes (hypertensive ) - General General: Alert and oriented X 3, No acute distress, Well developed/nourished - HEENT HEENT: Atraumatic, PERRL - Respiratory Respiratory: No respiratory distress - Back Back: No CVA TTP, No spinal TTP, Other (There is paraspinous point tenderness to the right lumbar paraspinous muscles extending into the sciatic notch. 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 She is a diabetic I have given her a warning about the dexamethasone causing an elevation in blood sugar and recommended she use her sliding scale insulin. We will place her on some pain medication a muscle relaxant. I discussed with the patient and her the natural history of disc disease and the potential for needing further imaging procedures. Departure - Departure Disposition: 01 Home, Self Care Clinical Impression: Sciatica Qualifiers: Laterality: right Qualified Code(s): M54.31 - Sciatica, right side Condition: Stable Instructions: ED Sciatica Follow-Up: Jorge Cardona PA-C [Primary Care Provider] - Prescriptions: Cyclobenzaprine [Flexeril] 10 mg PO TID PRN #20 tablet PRN Reason: Spasms Hydrocodone/Acetaminophen [Hydrocodon-Acetaminophen 5-325] 1 - 2 each PO Q6H PRN #14 tablet PRN Reason: pain
[2019-06-03 14:01] VITALS: BP 155/78
== END 2019-06-03 13:59 | disposition home or self-care (01) ==
LOC: ED 12:06
DX: M54.31 Sciatica, right side (principal); I10 Essential (primary) hypertension; E11.9 Type 2 diabetes mellitus without complications; Z79.4 Long term (current) use of insulin
CPT/HCPCS: 96372; 99283; 99284; A9270

== ENCOUNTER 2019-07-03 11:11 | Emergency (ER) | payer MEDICAID ==
[2019-07-03] MEDS ORDERED: DEXAMETHASONE 10 MG/ML VIAL PO STA (11:34)
[2019-07-03] MEDS ORDERED: CHERRY SYRUP 10 ML UDC PO ONE (11:34)
--- NOTE | 2019-07-03 11:44 | ED Physician Documentation ---
History of Present Illness - Stated complaint Stated Complaint: FOOT PX - Chief complaint Chief Complaint: Ext Problem - History obtained from History obtained from: Patient, Friend - History of Present Illness Timing: How many weeks ago (1) - Additonal information Additional information: 54-year-old diabetic female with a history of sciatica has developed pain numbness and weakness in her right foot. She has enough weakness in her foot and calf that she has fallen 4 times. She states that her pain and symptoms are worsening over the past week. She did get some relief of her pain 1 month ago when she was treated with some dexamethasone. She has been into see her doctor in follow-up and at that point she was improved. She is not able to get into see her doctor now. Review of Systems Constitutional: denies: Fever, Chills, Myalgias Eyes: denies: Decreased vision Ears: denies: Ear pain Nose: denies: Rhinorrhea / runny nose, Congestion Throat: denies: Oral lesions / sores, Sore throat Cardiac: denies: Chest pain / pressure, Palpitations Respiratory: denies: Dyspnea, Cough GI: denies: Abdominal Pain, Nausea, Vomiting : denies: Dysuria, Frequency Skin: denies: Rash Musculoskeletal: reports: Back pain, Extremity pain. denies: Neck pain, Extremity swelling, Joint swelling Neurologic: reports: Focal weakness, Numbness. 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 : None HEENT: None Psych: Depression Musculoskeletal: None Derm: None - Past Surgical History Past Surgical History: Yes General: Cholecystectomy Ortho: Knee replacement - Present Medications Home Medications: Ambulatory Orders Medication Instructions Recorded Confirmed Blood Sugar Diagnostic [Glucometer 1 strip MC BID #100 strip 01/16/18 04/11/18 Strips] Blood-Glucose Meter [Glucometer] 1 each MC BID #1 each 01/16/18 04/11/18 RX: Albuterol Sulfate [Proventil 1 - 2 puffs IH Q4H PRN #1 02/24/18 04/11/18 Hfa Inhaler] [email or web address] Lisinopril 1 tab PO DAILY 03/11/18 04/11/18 Benzonatate [Tessalon Perle] 200 mg PO Q6H PRN 04/11/18 04/11/18 Cholecalciferol (Vitamin D3) 3,000 units PO DAILY 04/11/18 04/11/18 [Vitamin D3] Insulin Aspart [NovoLOG] 80 units INJ DAILY 04/11/18 04/11/18 RX: Atorvastatin [Lipitor] 1 tab PO DAILY 04/11/18 04/11/18 RX: Doxepin [SINEquan] 1 cap PO DAILY 04/11/18 04/11/18 RX: Sertraline [Zoloft] 100 mg PO DAILY 04/11/18 04/11/18 RX: metFORMIN [Glucophage] 1,000 mg PO BIDWM 04/11/18 04/11/18 hydrOXYzine pamoate [Hydroxyzine 1 cap PO DAILY 04/11/18 04/11/18 Pamoate] Amox/Clav 875/125 [Augmentin] 1 each PO Q12H #20 tablet 12/29/18 LORazepam [Ativan] 0.5 mg PO BID PRN #8 tablet 01/16/19 RX: Albuterol Sulf [Ventolin Hfa 1 - 2 puffs INH Q4HR PRN #1 inhaler 03/22/19 Inhaler] guaiFENesin/CODEINE [Robitussin AC] 5 ml PO Q6H PRN #120 ml 03/22/19 Cyclobenzaprine [Flexeril] 10 mg PO TID PRN #20 tablet 06/03/19 Hydrocodone/Acetaminophen 1 - 2 each PO Q6H PRN #14 tablet 06/03/19 [Hydrocodon-Acetaminophen 5-325] - Allergies Allergies/Adverse Reactions: Allergies Allergy/AdvReac Type Severity Reaction Status Date / Time Penicillins Allergy Rash Verified 07/03/19 11:19 - Social History Does the pt smoke?: No Smoking Status: Never smoker Does the pt drink ETOH?: No Does the pt have substance abuse?: No - Immunizations Immunizations are current?: Yes Immunizations: TDAP current <10years - POLST Patient has POLST: No PD ED PE NORMAL - Vitals Vital signs reviewed: Yes (hypertensive ) - General General: Alert and oriented X 3, No acute distress, Well developed/nourished - HEENT HEENT: Atraumatic, PERRL, EOMI - Respiratory Respiratory: No respiratory distress - Back Back: No CVA TTP - Derm Derm: Normal color, Warm and dry, No rash - Extremities Extremities: No deformity, No edema, Other (The right foot has weak dorsiflexion . Not just the great toe but the entire foot. The sensation is less on the rigth foot to pin prick. The calf is percieved as numb but the patient is not able to distinquish a difference in pin prick at the mid calf from left to right. 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 ) Eye Opening: Spontaneous Motor: Obeys Commands Verbal: Oriented GCS Score: 15 - Psych Psych: Normal mood, Normal affect Results - Vitals Vitals: Vital Signs - 24 hr 07/03/19 07/03/19 07/03/19 16:18 19:34 21:22 Temperature 36.8 C Heart Rate 69 66 90 Respiratory 16 16 20 Rate Blood Pressure 159/93 H 156/90 H 156/115 H O2 Saturation 96 96 96 Oxygen O2 Source Room air - Labs Labs: Laboratory Tests 07/03/19 16:54 POC Whole Bld Glucose 372 H PD MEDICAL DECISION MAKING - ED course Complexity details: reviewed old records, reviewed results, re-evaluated patient, considered differential, d/w patient, d/w family ED course: 54-year-old diabetic female with a history of sciatica has worsening symptoms especially with weakness of the right lower extremity. Her right lower extremity is weak enough that she has to lift her leg with her hands to go up a stair. She has had 3 falls in the past week related to this. My concern is for a radic ulopathy that is dense enough to cause harm to the patient and I have persued MRI imaging. We have given the patient a dose of decadron as well. She has progressive motor findings despite time and conservative treatment. At shift change the patient is awaiting MRI and disposition pending that. Departure - Departure Disposition: 01 Home, Self Care Clinical Impression: Lumbar radiculopathy, right Condition: Stable Instructions: ED Sciatica Comments: Follow-up with your primary care physician tomorrow, discuss referrals for EMG and back surgery. Take the copies of the MRI both the read and the CD with you. Return for new worsening symptoms. Discharge Date/Time: 07/03/19 21:27
[2019-07-03] MEDS ORDERED: INSULIN ASPART 100 UNIT/1 ML 10 ML MDV SUBQ STA (17:00)
--- NOTE | 2019-07-03 20:46 | MRI Report ---
Reason: numbness/weakness R LE Procedure Date: 07/03/2019 Accession Number: [id number] / [id number] Procedure: MRI - Lumbar Spine W/O CPT Code: FULL RESULT: EXAM: MRI LUMBAR SPINE WITHOUT CONTRAST EXAM DATE: 07/03/2019 07:35 PM. CLINICAL HISTORY: Numbness, weakness right lower extremity COMPARISON: ABDOMEN/PELVIS W/ 03/11/2018 8:45 AM. TECHNIQUE: Multiplanar, multisequence T1-weighted and fluid-sensitive sequences of the lumbar spine from T12 to S1 without contrast. Other: None. Findings: Relevant images are indicated (image number, series number). There is alignment T10-T11, through L5-S1 conus terminates at L1. No abnormal lumbar cord signal, no suspicious marrow lesion. There is no lumbar paraspinal mass or collection. Partly visualized bilateral kidneys demonstrate no obstructive uropathy. Chronic multilevel posterior facet bony hypertrophic changes are present. T10-T11, through L3-L4: No canal stenosis or neural foramina narrowing. No or only minimal disk desiccation. L4-L5: Slight grade 1 anterolisthesis, mild/moderate disk desiccation, marked posterior facet degenerative changes with bilateral joint effusions without extra-articular extension. No surrounding edema. No significant canal stenosis. There is moderate left, mild to moderate right neural foramina narrowing. L5-S1: Mild/moderate disk desiccation, no canal stenosis. Marked posterior facet degenerative change with mild/moderate bilateral neural foramina narrowing, right greater than left, there may be contact with right L5 nerve root. Remaining upper sacral canal negative. Impressions: 1. There are 5 [id number] lumbar vertebra, no abnormal lumbar cord signal or suspicious marrow lesion. Chronic advanced multilevel posterior facet bony hypertrophic changes, joint effusions present L4-L5, no extra-articular extension. Pertinent degenerative levels below. 2. L4-L5: No canal stenosis, mild/moderate disk degenerative change. Marked posterior facet degenerative changes, mild to moderate degenerative bilateral neural foramina narrowing left greater than right, may contribute a left L4 radiculopathy. 3. L5-S1: No canal stenosis, marked posterior facet degenerative changes with mild/moderate bilateral neuroforaminal narrowing, potential minimal contact with right L5 nerve root. 4. Milder or no significant degenerative changes of the remaining lower thoracic, lumbar spine levels as detailed. Comment: The following findings are so common in adults without low back pain that while we report their presence, they must be interpreted with caution and in the context of the clinical situation. (Reference Louiek et al, Spine 2001) Prevalence of findings in patients without low back pain: Disk degeneration (any evidence): 92% Disk desiccation/T2 signal loss: 83% Disk height loss: 56% Disk bulge: 64% Disk protrusion: 32% Annular tear/high intensity zone: 38% RADIA
--- NOTE | 2019-07-03 21:07 | ED Physician Documentation ---
History of Present Illness - Stated complaint Stated Complaint: FOOT PX - Chief complaint Chief Complaint: Ext Problem - History obtained from History obtained from: Patient - History of Present Illness Timing: Today (54-year-old woman signed out to me by Dr. Hardy. Briefly she is had trouble with sciatica recently and has had fairly rapidly progressive weakness of the right foot. On my examination she has an almost into L4 reflex on the right and significant weakness especially in dorsiflexion of the great toe on the right. MRI was reviewed. Although the read says the stenosis is worse on the left than the right at L4, it seems that physically this is consistent with an L4 radiculopathy on the right. She was given a copy of the radiologist read as well as the original images on a CD. I advised that she needs to follow-up with her PCP tomorrow for referrals, potentially for EMG and back surgery. 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 HEENT: None Psych: Depression Musculoskeletal: None Derm: None - Past Surgical History Past Surgical History: Yes General: Cholecystectomy Ortho: Knee replacement - Present Medications Home Medications: Ambulatory Orders Medication Instructions Recorded Confirmed Blood Sugar Diagnostic [Glucometer 1 strip MC BID #100 strip 01/16/18 04/11/18 Strips] Blood-Glucose Meter [Glucometer] 1 each MC BID #1 each 01/16/18 04/11/18 Albuterol Sulfate [Proventil Hfa 1 - 2 puffs IH Q4H PRN #1 02/24/18 04/11/18 Inhaler] [email or web address] Lisinopril 1 tab PO DAILY 03/11/18 04/11/18 Atorvastatin [Lipitor] 1 tab PO DAILY 04/11/18 04/11/18 Benzonatate [Tessalon Perle] 200 mg PO Q6H PRN 04/11/18 04/11/18 Cholecalciferol (Vitamin D3) 3,000 units PO DAILY 04/11/18 04/11/18 [Vitamin D3] Doxepin [SINEquan] 1 cap PO DAILY 04/11/18 04/11/18 Insulin Aspart [NovoLOG] 80 units INJ DAILY 04/11/18 04/11/18 Sertraline [Zoloft] 100 mg PO DAILY 04/11/18 04/11/18 hydrOXYzine pamoate [Hydroxyzine 1 cap PO DAILY 04/11/18 04/11/18 Pamoate] metFORMIN [Glucophage] 1,000 mg PO BIDWM 04/11/18 04/11/18 Amox/Clav 875/125 [Augmentin] 1 each PO Q12H #20 tablet 12/29/18 LORazepam [Ativan] 0.5 mg PO BID PRN #8 tablet 01/16/19 Albuterol Sulf [Ventolin Hfa 1 - 2 puffs INH Q4HR PRN #1 inhaler 03/22/19 Inhaler] guaiFENesin/CODEINE [Robitussin AC] 5 ml PO Q6H PRN #120 ml 03/22/19 Cyclobenzaprine [Flexeril] 10 mg PO TID PRN #20 tablet 06/03/19 Hydrocodone/Acetaminophen 1 - 2 each PO Q6H PRN #14 tablet 06/03/19 [Hydrocodon-Acetaminophen 5-325] - Allergies Allergies/Adverse Reactions: Allergies Allergy/AdvReac Type Severity Reaction Status Date / Time Penicillins Allergy Rash Verified 07/03/19 11:19 - Social History Does the pt smoke?: No Smoking Status: Never smoker Does the pt drink ETOH?: No Does the pt have substance abuse?: No - Immunizations Immunizations are current?: Yes Immunizations: TDAP current <10years - POLST Patient has POLST: No Results - Vitals Vitals: Vital Signs - 24 hr 07/03/19 07/03/19 07/03/19 11:15 12:00 14:30 Temperature 36.5 C 36.6 C Heart Rate 70 77 64 Respiratory 18 18 16 Rate Blood Pressure 148/109 H 174/94 H 132/93 H O2 Saturation 97 97 96 07/03/19 07/03/19 16:18 19:34 Temperature Heart Rate 69 66 Respiratory 16 16 Rate Blood Pressure 159/93 H 156/90 H O2 Saturation 96 96 Oxygen O2 Source Room air - Labs Labs: Laboratory Tests 07/03/19 16:54 POC Whole Bld Glucose 372 H Departure - Departure Disposition: 01 Home, Self Care Clinical Impression: Lumbar radiculopathy, right Condition: Stable Record reviewed to determine appropriate education?: Yes Instructions: ED Sciatica Comments: Follow-up with your primary care physician tomorrow, discuss referrals for EMG and back surgery. Take the copies of the MRI both the read and the CD with you. Return for new worsening symptoms.
[2019-07-03 21:23] VITALS: BP 156/115
== END 2019-07-03 21:27 | disposition home or self-care (01) ==
LOC: ED 11:11
DX: M54.16 Radiculopathy, lumbar region (principal); I10 Essential (primary) hypertension; E11.9 Type 2 diabetes mellitus without complications; Z79.4 Long term (current) use of insulin
CPT/HCPCS: 72148; 99283; 99284; A9270

== ENCOUNTER 2019-12-16 07:58 | Outpatient (CLI) | payer MEDICAID ==
[2019-12-16 12:16] LABS: ALBUMIN 3.8 g/dL (3.2-5.5); ALKALINE PHOSPHATASE 85 IU/L (42-121); ALT ALANINE AMINOTRANSFERASE 56 IU/L (10-60); AST ASPARTATE AMINOTRANSFERASE 51 IU/L (10-42); BILIRUBIN,TOTAL 0.8 mg/dL (0.2-1.0); BUN - BLOOD UREA NITROGEN 13 mg/dL (6-20); CALCIUM 9.5 mg/dL (8.5-10.3); CARBON DIOXIDE - CO2 27 mmol/L (21-32); CHLORIDE 98 mmol/L (101-111); CHOLESTEROL 361 mg/dL; CREATININE 0.7 mg/dL (0.4-1.0); GFR - MDRD 87 (>89); GLUCOSE 350 mg/dL (70-100); HDL CHOLESTEROL 36 mg/dL; SODIUM 134 mmol/L (135-145); TOTAL PROTEIN 7.6 g/dL (6.7-8.2)
[2019-12-16 12:29] LABS: HB2 TOTAL 15.3 g/dL; HEMOGLOBIN A1C 1.79 g/dL; HEMOGLOBIN A1C % 12.9 % (4.6-6.2)
[2019-12-16 13:09] LABS: LDL CHOLESTEROL,DIRECT 227 mg/dL; LDLD/HDL RATIO 6.3 (<4.4)
== END 2019-12-16 23:59 | disposition home or self-care (01) ==
LOC: LAB.N 07:58
PROVIDERS: ATTEND Physician Assistant Medical
DX: I10 Essential (primary) hypertension (principal); E78.2 Mixed hyperlipidemia; E11.40 Type 2 diabetes mellitus with diabetic neuropathy, unspecified
CPT/HCPCS: 36415; 80053; 80061; 83036; 83721

== ENCOUNTER 2020-06-06 03:40 | Emergency (ER) | payer MEDICAID ==
--- NOTE | 2020-06-06 03:30 | ED Physician Documentation ---
History of Present Illness - Stated complaint Stated Complaint: GLF/ HEAD INJ - History obtained from History obtained from: Patient - Additonal information Additional information: Patient is a 54-year-old female is complaining of lower back pain after she suffered a mechanical fall and slumped to the floor and fell like she twisted her lower back she denies any head or neck pain she does arrive via ambulance C- collared and backboarded. She reports she has a chronic left foot drop and she reports she woke up tonight to use the restroom and then tripped on the carpet and slumped to the floor. She denies any bowel or bladder dysfunction or any saddle anesthesia she reports she was able to stand up on her own and walk back to the bed she then was complaining of severe lower back pain in the ambulance was called. Denies any bowel or bladder dysfunction denies any saddle anesthesia of spinal surgeries.She denies any history of IV drug abuse. Review of Systems Constitutional: reports: Reviewed and negative Eyes: reports: Reviewed and negative Ears: reports: Reviewed and negative Nose: reports: Reviewed and negative Throat: reports: Reviewed and negative Cardiac: reports: Reviewed and negative Respiratory: reports: Reviewed and negative GI: reports: Reviewed and negative : reports: Reviewed and negative Skin: reports: Reviewed and negative Musculoskeletal: reports: Back pain Neurologic: reports: Reviewed and negative Psychiatric: reports: Reviewed and negative Endocrine: reports: Reviewed and negative Immunocompromised: reports: Reviewed and negative PD PAST MEDICAL HISTORY - Present Medications Home Medications: Ambulatory Orders Medication Instructions Recorded Confirmed Blood Sugar Diagnostic [Glucometer 1 strip BID #100 strip 01/16/18 04/11/18 Strips] Blood-Glucose Meter [Glucometer] 1 each BID #1 each 01/16/18 04/11/18 Albuterol Sulfate [Proventil Hfa 1 - 2 puffs IH Q4H PRN #1 02/24/18 04/11/18 Inhaler] hfa.aer.ad Atorvastatin [Lipitor] 2 tab PO DAILY 04/11/18 06/06/20 Benzonatate [Tessalon Perle] 200 mg PO Q6H PRN 04/11/18 04/11/18 Cholecalciferol (Vitamin D3) 3,000 units PO DAILY 04/11/18 04/11/18 [Vitamin D3] Doxepin [SINEquan] 1 cap PO DAILY 04/11/18 04/11/18 Insulin Aspart [NovoLOG] 80 units INJ DAILY 04/11/18 04/11/18 Sertraline [Zoloft] 100 mg PO DAILY 04/11/18 04/11/18 metFORMIN [Glucophage] 1,000 mg PO BIDWM 04/11/18 04/11/18 Amox/Clav 875/125 [Augmentin] 1 each PO Q12H #20 tablet 12/29/18 LORazepam [Ativan] 0.5 mg PO BID PRN #8 tablet 01/16/19 Albuterol Sulf [Ventolin Hfa 1 - 2 puffs INH Q4HR PRN #1 inhaler 03/22/19 Inhaler] Cyclobenzaprine [Flexeril] 10 mg PO TID PRN #20 tablet 06/03/19 Hydrocodone/Acetaminophen 1 - 2 each PO Q6H PRN #14 tablet 06/03/19 [Hydrocodon-Acetaminophen 5-325] Atorvastatin Calcium 80 mg PO QPM 06/06/20 06/06/20 Levothyroxine Sodium 200 mcg PO DAILY 06/06/20 06/06/20 Losartan Potassium 25 mg PO DAILY 06/06/20 06/06/20 diazePAM [Valium] 5 mg PO BID PRN #7 tablet 06/06/20 - Allergies Allergies/Adverse Reactions: Allergies Allergy/AdvReac Type Severity Reaction Status Date / Time Penicillins Allergy Rash Verified 06/06/20 03:51 PD ED PE NORMAL - Vitals Vital signs reviewed: Yes - General General: Alert and oriented X 3, No acute distress, Well developed/nourished - HEENT HEENT: Atraumatic, PERRL, EOMI, Ears normal, Moist mucous membranes, Pharynx benign, Dentition benign, Other (There is no signs of trauma to the skull or the scalp. There is no bleeding there is no swelling no ecchymosis no hemotympanum bilaterally no septal hematoma no acute missing teeth no raccoon eyes no hoff sign.) - Neck Neck: Supple, no meningeal sign, No adenopathy, Other (No cervical midline tenderness palpation no step-offs or deformities.) - Cardiac Cardiac: RRR, No murmur, Strong equal pulses - Respiratory Respiratory: No respiratory distress, Clear bilaterally - Abdomen Abdomen: Normal bowel sounds, Soft, Non tender, Non distended, No organomegaly - Back Back: No CVA TTP, No spinal TTP, Other (Patient has diffuse tenderness to palpation lateral to the midline lumbar spine. There is no step-offs or deformities of the cervical, thoracic, lumbar sacral spine. Perianal sensations intact.) - Derm Derm: Normal color, Warm and dry, No rash - Extremities Extremities: No deformity - Neuro Neuro: Alert and oriented X 3, Other (Patient has a chronic left foot drop she is able to flex and extend at the hips there is no leg length discrepancy compartments are soft and bilateral lower extremities and neurovascularly intact. There is diffuse left lateral lumbar paraspinal tenderness palpation no ecchymosis no bleeding. ) - Psych Psych: Normal mood, Normal affect Results - Vitals Vitals: Vital Signs - 24 hr 06/06/20 06/06/20 03:48 03:54 Temperature 36.7 C Heart Rate 81 Respiratory 18 Rate Blood Pressure 156/87 H O2 Saturation 100 Oxygen O2 Source Room air PD MEDICAL DECISION MAKING - ED course Complexity details: reviewed results (CT scan of the lumbar spine shows no CT evidence of acute lumbar spine injury. Patient reexamined she is neurovascular intact.), re-evaluated patient, d/w patient, d/w family ED course: Patient has no signs of trauma on exam she does have diffuse left lateral lumbar back pain that is worse with movement worse with flexion extension of the spine as well as side bending and rotation on passive and active range of motion.Plan is to get a CT scan of the lumbar spine to evaluate patient's area of pain. Departure - Departure Disposition: 01 Home, Self Care Clinical Impression: Lower back pain Qualifiers: Chronicity: acute Back pain laterality: left Sciatica presence: without sciatica Qualified Code(s): M54.5 - Low back pain Condition: Stable Instructions: ED Sprain Strain Lumbar Follow-Up: your, doctor [Other] - Tomorrow Prescriptions: diazePAM [Valium] 5 mg PO BID PRN #7 tablet PRN Reason: Spasms Comments: Please follow-up with your primary care provider on Monday.You may take Valium as directed for your muscle spasms of your lower back.
[2020-06-06] MEDS ORDERED: MORPHINE 10 MG/ML VIAL IM STA (03:58)
[2020-06-06] MEDS ORDERED: diazePAM 5 MG TABLET PO STA (05:27)
[2020-06-06 05:55] VITALS: BP 110/75
--- NOTE | 2020-06-06 10:29 | CT Report ---
PROCEDURE: LUMBAR SPINE WO INDICATIONS: fall low back pain TECHNIQUE: Noncontrast 3 mm thick sections acquired from the T12 level to the sacrum. Sagittal and coronal refo rmats were constructed. For radiation dose reduction, the following was used: automated exposure co ntrol, adjustment of mA and/or kV according to patient size. COMPARISON: Correlation is made with chest, abdomen, and pelvis CT 03/11/2018. Correlation is also ma de with lumbar MRI 07/03/2019. FINDINGS: Image quality: Excellent. Bones: No acute vertebral body compression fractures. No suspicious lytic or blastic bony lesions. Central spinal caliber is of normal overall caliber. There is minimal anterolisthesis seen at L4-L5 and L5-S1. No associated pars defects are seen. Age-appropriate lower thoracic degenerative changes are seen. T12-L1: The disc height is well-preserved. Prominent bridging anterior osteophytes are seen. No sign ificant neural foraminal or central canal narrowing can be seen. L1-L2: The disc height is within normal limits. Bridging anterior osteophytes are seen. Mild disc bu lge is seen. Mild facet hypertrophy is seen. Mild bilateral neural foraminal narrowing is seen. No significant central canal narrowing is seen. L2-L3: The disc height is well-preserved. Prominent bridging anterior osteophytes are seen. Mild t o moderate disc bulge is seen. Moderate facet hypertrophy is seen. Mild bilateral neural foramina l narrowing is seen. Mild central canal narrowing is seen. L3-L4: The disc height is well-preserved. Mild to moderate disc bulge is seen. Mild to moderate fac et hypertrophy is seen. Mild bilateral neuroforaminal narrowing is seen, right worse than left. Minim al to mild central canal narrowing is seen. L4-L5: There is mild loss of disc height seen. Moderate disc bulge is seen at this level. Promin ent facet hypertrophy is seen. There is at least moderate bilateral neuroforaminal narrowing seen. M oderate central canal narrowing is seen. L5-S1: Mild loss of disc height is seen. Mild to moderate disc bulge is seen at this level. Moderat e to prominent facet hypertrophy is seen. There is moderate left-sided and at least moderate right-si ded neuroforaminal narrowing seen. No central canal narrowing is seen. Soft tissues: No retroperitoneal masses or hematomas. Visualized aorta is normal in caliber. Radha cystectomy clips are partially seen. IMPRESSION: No acute posttraumatic abnormality can be seen. Lumbar spine degenerative changes are seen, which are worst inferiorly and are similar to the prior M RI examination. Incidental note is made of: Cholecystectomy Note: No significant discrepancy from the preliminary report. Reviewed by: Tacso Mcgraw MD on 06/06/2020 9:28 AM AKURIEL Approved by: Tacos Mcgraw MD on 06/06/2020 9:28 AM [place] Station ID: [id number]
== END 2020-06-06 07:27 | disposition home or self-care (01) ==
LOC: EDUNIT# → ED 03:40
DX: M54.5 Low back pain (principal); W01.198A Fall on same level from slipping, tripping and stumbling with subsequent striking against other object, initial encounter; Y93.01 Activity, walking, marching and hiking; M21.372 Foot drop, left foot; M51.36 Other intervertebral disc degeneration, lumbar region; M48.061 Spinal stenosis, lumbar region without neurogenic claudication
CPT/HCPCS: 72131; 96372; 99284; 99285; A9270

== ENCOUNTER 2020-10-28 00:29 | Outpatient (CLI) | payer MEDICAID ==
--- OUTSIDE RECORDS SUMMARY | 2020-11-04 00:30 | EXTERNAL MEDICAL SUMMARY RPT | Continuity of Care Document ---
:1965 Demographics Phone Unavailable Preferred Language Unknown Marital Status Unknown Scientology Affiliation Unknown Race Unknown Ethnic Group Unknown Author Organization [facility] Address [address] [phone] Phone Care Team Providers Name Role Phone Brendan Unavailable Unavailable SAVAGE Unavailable Unavailable Rylan Unavailable Unavailable Problems date description facility 2017-06-20 09:01 TYPE 2 DIABETES MELLITUS WITH [facility] UNSPECIFIED COMPLICATIONS 2017-06-20 09:01 PURE HYPERCHOLESTEROLEMIA, 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 UNSPECIFIED 2017-10-26 09:59 ESSENTIAL (PRIMARY) HYPERTENSION [facility] 2017-10-26 09:59 BRONCHITIS, NOT SPECIFIED ACUTE [facility] OR CHRONIC 2017-10-26 09:59 HEMOPTYSIS [facility] 2017-11-08 08:58 TYPE 2 DIABETES MELLITUS WITH [facility] HYPERGLYCEMIA 2017-11-08 08:58 DEHYDRATION [facility] 2017-11-08 08:58 ESSENTIAL (PRIMARY) HYPERTENSION [facility] 2017-11-08 08:58 UNSPECIFIED RIGHT BUNDLE-BRANCH [facility] BLOCK 2017-11-08 08:58 UPPER ABDOMINAL PAIN, UNSPECIFIED [facility] 2017-11-08 08:58 EPIGASTRIC PAIN [facility] 2017-11-08 08:58 HOMELESSNESS [facility] 2018-01-02 06:38 TYPE 2 DIABETES MELLITUS WITH [facility] DIABETIC MONONEUROPATHY 2018-01-02 06:38 TYPE 2 DIABETES MELLITUS WITH [facility] HYPERGLYCEMIA 2018-01-02 06:38 PURE HYPERCHOLESTEROLEMIA, [facility] UNSPECIFIED 2018-01-02 06:38 DEHYDRATION [facility] 2018-01-02 06:38 ESSENTIAL (PRIMARY) HYPERTENSION [facility] 2018-01-02 06:38 UNSPECIFIED ABDOMINAL PAIN 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 2018-02-24 18:53 TYPE 2 DIABETES MELLITUS WITH [facility] HYPERGLYCEMIA 2018-02-24 18:53 ESSENTIAL (PRIMARY) HYPERTENSION [facility] 2018-02-24 18:53 UNSPECIFIED RIGHT BUNDLE-BRANCH [facility] BLOCK 2018-02-24 18:53 FLU DUE TO OTH IDENT INFLUENZA [facility] VIRUS W OTH RESP MANIFEST 2018-02-24 18:53 ELEVATED BLOOD-PRESSURE READING, [facility] W/O DIAGNOSIS OF HTN 2018-02-24 18:53 FEVER, UNSPECIFIED [facility] 2018-02-24 18:53 ABNORMAL ELECTROCARDIOGRAM [ECG] [facility] [EKG] 2018-02-24 18:53 [facility] (CURRENT) USE OF ORAL [facility] HYPOGLYCEMIC DRUGS 2018-02-24 18:53 PRSNL HX OF TIA (TIA), 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 2018-04-09 09:46 HYPERSOMNIA, UNSPECIFIED [facility] 2018-04-09 09:46 SLEEP APNEA, UNSPECIFIED [facility] 2018-04-09 09:46 OTHER SLEEP DISORDERS [facility] 2018-04-09 09:46 SNORING [facility] 2018-08-10 08:00 TYPE 2 DIABETES MELLITUS WITH [facility] DIABETIC NEUROPATHY, UNSP 2018-08-10 08:00 VITAMIN D DEFICIENCY, UNSPECIFIED [facility] 2018-12-07 11:03 UNILATERAL PRIMARY OSTEOARTHRITIS, [facility] RIGHT HIP 2018-12-07 11:03 EFFUSION, RIGHT KNEE [facility] 2018-12-07 11:03 OSTEOPHYTE, RIGHT KNEE [facility] 2019-01-16 11:08 TYPE 2 DIABETES MELLITUS WITHOUT [facility] COMPLICATIONS 2019-01-16 11:08 MAJOR DEPRESSIVE DISORDER, SINGLE [facility] EPISODE, UNSPECIFIED 2019-01-16 11:08 OTHER REACTIONS TO SEVERE STRESS [facility] 2019-01-16 11:08 ESSENTIAL (PRIMARY) HYPERTENSION [facility] 2019-01-16 11:08 SUICIDAL IDEATIONS [facility] 2019-01-16 11:08 [facility] (CURRENT) USE OF INSULIN [facility] 2019-03-22 19:18 TYPE 2 DIABETES MELLITUS WITHOUT [facility] COMPLICATIONS 2019-03-22 19:18 ESSENTIAL (PRIMARY) HYPERTENSION [facility] 2019-03-22 19:18 BRONCHITIS, NOT SPECIFIED ACUTE [facility] OR CHRONIC 2019-03-22 19:18 COUGH [facility] 2019-03-22 19:18 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) USE OF INSULIN [facility] 2019-05-09 09:49 TYPE 2 DIABETES MELLITUS WITH [facility] DIABETIC NEUROPATHY, UNSP 2019-05-09 09:49 MORBID (SEVERE) OBESITY DUE TO [facility] EXCESS CALORIES 2019-05-09 09:49 ELEVATED BLOOD-PRESSURE READING, [facility] W/O DIAGNOSIS OF HTN 2019-05-09 09:49 PERSONAL HISTORY OF OTHER DISEASES [facility] OF THE [facility] 2019-06-03 12:06 TYPE 2 DIABETES MELLITUS WITHOUT [facility] COMPLICATIONS 2019-06-03 12:06 ESSENTIAL (PRIMARY) HYPERTENSION [facility] 2019-06-03 12:06 SCIATICA, RIGHT SIDE [facility] 2019-06-03 12:06 LOW BACK PAIN [facility] 2019-06-03 12:06 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) USE OF INSULIN [facility] 2019-07-03 11:11 TYPE 2 DIABETES MELLITUS WITHOUT [facility] COMPLICATIONS 2019-07-03 11:11 ESSENTIAL (PRIMARY) HYPERTENSION [facility] 2019-07-03 11:11 RADICULOPATHY, LUMBAR REGION [facility] 2019-07-03 11:11 PAIN IN RIGHT FOOT [facility] 2019-07-03 11:11 [facility] (CURRENT) USE OF INSULIN [facility] 2019-12-16 07:58 TYPE 2 DIABETES MELLITUS WITH [facility] DIABETIC NEUROPATHY, UNSP 2019-12-16 07:58 MIXED HYPERLIPIDEMIA [facility] 2019-12-16 07:58 ESSENTIAL (PRIMARY) HYPERTENSION [facility] 2020-06-06 03:40 FOOT DROP, LEFT FOOT [facility] 2020-06-06 03:40 SPINAL STENOSIS, LUMBAR REGION [facility] WITHOUT NEUROGENIC KRISHNA 2020-06-06 03:40 OTHER 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[facility] DEGENERATION, LUMBAR REGION 2020-06-06 03:40 LOW BACK PAIN [facility] 2020-06-06 03:40 FALL SAME LEV FROM SLIP/TRIP [facility] STRIKE AGNST OTH OBJECT, INIT 2020-06-06 03:40 ACTIVITY, WALKING, MARCHING AND [facility] HIKING Allergies date description facility 2,4-D DIMETHYLAMINE (AMISOL) [facility] ACETAMINOPHEN [facility] AM[facility]IC[facility] CODEINE [facility] ETHYLENEDIAMINE [facility] FENTANYL CITRATE [facility] FORMALDEHYDE [facility] HYDROCODONE [facility] HY[facility]OX[facility] IS[facility]OLIN [facility] METHAD[facility] MORPHINE [facility] NEOMYCIN [facility] POVIDONE IODINE [facility] PRAVASTATIN [facility] PREDNISONE [facility] PROMETHAZINE HCL [facility] SOAP [facility] SODIUM HYPOCHLORITE [facility] ALCOHOL GEL BASE [facility] SOAP \T\ CLEANSERS [facility] NO KNOWN ENVIRONMENTAL ALLERGIES [facility] SULFA ANT[facility]OT[facility] UNCODED NONSCREENABLE ALLERGEN [facility] NO KNOWN ALLERGIES [facility] PENICILLINS [facility] TETRACYCLINES [facility] NO KNOWN ALLERGIES [facility] ALCOHOL [facility] PIPER [facility] LATEX [facility] FOOD [facility] SHEEP [facility] NIACIN [facility] LIDOCAINE [facility] MORPHINE [facility] CODEINE [facility] PROPOXYPHENE [facility] ASPIRIN [facility] IBUPROFEN [facility] ERYTHROMYCIN BASE [facility] CIPROFLOXACIN [facility] OMEPRAZOLE [facility] AMLODIPINE [facility] GLUCOSAMINE [facility] FLUTICASONE [facility] CITALOPRAM [facility] ATORVASTATIN [facility] DULOXETINE [facility] LATEX [facility] INSECTS EXTRACT [facility] Penicillins [facility] NO KNOWN ALLERGIES [facility] NO KNOWN ALLERGIES [facility] Results Social History date description facility [id number]
== END 2020-10-28 00:30 | disposition critical access hospital (66) ==
LOC: EMS 00:29
PROVIDERS: ATTEND Surgery
DX: R47.81 Slurred speech (principal); R26.81 Unsteadiness on feet
CPT/HCPCS: A0425; A0427; A0999

== ENCOUNTER 2020-11-18 08:00 | Outpatient (CLI) | payer MEDICAID ==
[2020-11-18 18:28] LABS: HEMOGLOBIN A1c% 12.3 % (4.27-6.07)
[2020-11-18 18:49] LABS: BASOPHILS # (AUTO) 0.1 10^3/uL (0.0-0.1); BASOPHILS % (AUTO) 0.6 %; EOSINOPHILS # (AUTO) 0.3 10^3/uL (0.0-0.7); EOSINOPHILS % (AUTO) 2.4 %; HGB - HEMOGLOBIN 14.6 g/dL (12.0-16.0); LYMPHOCYTES # (AUTO) 3.6 10^3/uL (1.5-3.5); LYMPHOCYTES % (AUTO) 34.5 %; MEAN CORPUSCULAR HEMOGLOBIN 29.9 pg (27.0-31.0); MEAN CORPUSCULAR HGB CONC 31.7 g/dL (32.0-36.0); MEAN CORPUSCULAR VOLUME 94.1 fL (81.0-99.0); MEAN PLATELET VOLUME 10.3 fL (7.9-10.8); MONOCYTES # (AUTO) 0.5 10^3/uL (0.0-1.0); MONOCYTES % (AUTO) 4.5 %; NEUTROPHILS % (AUTO) 57.7 %; PLT - PLATELET COUNT 405 10^3/uL (130-450); RED BLOOD COUNT 4.89 10^6/uL (4.20-5.40); RED CELL DISTRIBUTION WIDTH 13.5 % (12.0-15.0); WHITE BLOOD COUNT 10.5 x10^3/uL (4.8-10.8)
[2020-11-18 19:08] LABS: ALBUMIN 3.9 g/dL (3.2-5.5); ALBUMIN/GLOBULIN RATIO 1.1 (1.0-2.2); ALKALINE PHOSPHATASE 69 IU/L (42-121); ALT ALANINE AMINOTRANSFERASE 52 IU/L (10-60); AST ASPARTATE AMINOTRANSFERASE 46 IU/L (10-42); BILIRUBIN,TOTAL 0.6 mg/dL (0.2-1.0); BUN - BLOOD UREA NITROGEN 26 mg/dL (6-20); CALCIUM 8.9 mg/dL (8.5-10.3); CARBON DIOXIDE - CO2 25 mmol/L (21-32); CHLORIDE 101 mmol/L (101-111); CHOL/HDL RATIO 3.6 (<4.4); CHOLESTEROL 132 mg/dL; CREATININE 0.7 mg/dL (0.4-1.0); GLUCOSE 92 mg/dL (70-100); HDL CHOLESTEROL 37 mg/dL; LDL CHOLESTEROL,CALCULATED 69 mg/dL; LDL/HDL RATIO 1.9 (<4.4); TOTAL PROTEIN 7.4 g/dL (6.7-8.2); VLDL CHOLESTEROL 26 mg/dL
== END 2020-11-18 23:59 | disposition home or self-care (01) ==
LOC: LAB.WCP 08:00
PROVIDERS: ATTEND Nurse Practitioner Family
DX: E66.01 Morbid (severe) obesity due to excess calories (principal); E78.2 Mixed hyperlipidemia; I10 Essential (primary) hypertension; E11.42 Type 2 diabetes mellitus with diabetic polyneuropathy
CPT/HCPCS: 36415; 80053; 80061; 83036; 83721; 84443; 85025

== ENCOUNTER 2020-11-24 16:14 | Outpatient (CLI) | payer MEDICAID ==
[2020-11-24 16:16] LABS: BASOPHILS # (AUTO) 0.1 10^3/uL (0.0-0.1); BASOPHILS % (AUTO) 0.6 %; EOSINOPHILS # (AUTO) 0.2 10^3/uL (0.0-0.7); EOSINOPHILS % (AUTO) 2.7 %; HGB - HEMOGLOBIN 13.6 g/dL (12.0-16.0); LYMPHOCYTES # (AUTO) 3.1 10^3/uL (1.5-3.5); LYMPHOCYTES % (AUTO) 39.9 %; MEAN CORPUSCULAR HEMOGLOBIN 29.4 pg (27.0-31.0); MEAN CORPUSCULAR HGB CONC 32.2 g/dL (32.0-36.0); MEAN CORPUSCULAR VOLUME 91.6 fL (81.0-99.0); MEAN PLATELET VOLUME 9.4 fL (7.9-10.8); MONOCYTES # (AUTO) 0.4 10^3/uL (0.0-1.0); MONOCYTES % (AUTO) 5.4 %; NEUTROPHILS % (AUTO) 51.3 %; PLT - PLATELET COUNT 354 10^3/uL (130-450); RED BLOOD COUNT 4.62 10^6/uL (4.20-5.40); RED CELL DISTRIBUTION WIDTH 13.2 % (12.0-15.0); WHITE BLOOD COUNT 7.8 x10^3/uL (4.8-10.8)
[2020-11-24 17:01] LABS: ALBUMIN 3.3 g/dL (3.2-5.5); ALBUMIN/GLOBULIN RATIO 1.1 (1.0-2.2); ALKALINE PHOSPHATASE 55 IU/L (42-121); ALT ALANINE AMINOTRANSFERASE 26 IU/L (10-60); AST ASPARTATE AMINOTRANSFERASE 22 IU/L (10-42); BILIRUBIN,TOTAL 0.6 mg/dL (0.2-1.0); BUN - BLOOD UREA NITROGEN 20 mg/dL (6-20); CALCIUM 8.8 mg/dL (8.5-10.3); CARBON DIOXIDE - CO2 28 mmol/L (21-32); CHLORIDE 100 mmol/L (101-111); CHOL/HDL RATIO 2.9 (<4.4); CHOLESTEROL 100 mg/dL; CREATININE 0.6 mg/dL (0.4-1.0); GLUCOSE 124 mg/dL (70-100); HDL CHOLESTEROL 34 mg/dL; LDL CHOLESTEROL,CALCULATED 44 mg/dL; LDL/HDL RATIO 1.3 (<4.4); TOTAL PROTEIN 6.4 g/dL (6.7-8.2); VLDL CHOLESTEROL 22 mg/dL
[2020-11-24] MEDS ORDERED: GADOBUTROL 10 MMOL/10 ML VIAL ONE (18:03)
[2020-11-24] MEDS ORDERED: GADOBUTROL 10 MMOL/10 ML VIAL IVP ONE (19:07)
[2020-11-24 20:46] LABS: HEMOGLOBIN A1c% 11.6 % (4.27-6.07)
--- NOTE | 2020-11-25 08:36 | MRI Report ---
PROCEDURE: Brain W/WO INDICATIONS: RT SIDE WEAKNESS OF BODY, SLURRED SPEECH CONTRAST: IV CONTRAST: Gadavist ml: 9 TECHNIQUE: Noncontrast axial T1 spin echo, axial T2 fast spin echo, sagittal and axial FLAIR, coronal T2 fast sp in echo, axial gradient echo, axial diffusion and ADC through the brain. After the administration of contrast, axial and coronal T1 spin echo with fat saturation through the brain. COMPARISON: 10/28/2019 FINDINGS: Image quality: Excellent. CSF spaces: Basal cisterns are patent. No extra-axial fluid collections. Ventricles are normal in size and shape. Brain: Wedge-shaped area of restricted diffusion in the left anterior dacia (series 405 image 8). In t his region of the dacia is also FLAIR hyperintense and demonstrates interrupted enhancement. Overall, the findings are consistent with a subacute infarct. There is no additional abnormal restricted diffu vasquez or parenchymal enhancement. There are moderate chronic microvascular ischemic changes manifest a s scattered foci of increased T2 signal in the subcortical, deep, and periventricular white matter. T he major intracranial vascular flow related signal voids are maintained. No abnormal intracranial margaret ceptibility. Skull and face: Calvarial marrow is normal in signal. Orbits appear normal. Sinuses: Sinuses and mastoids appear clear. 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 Reviewed by: Thad Driscoll MD on 11/25/2020 8:35 AM PST Approved by: Thad Driscoll MD on 11/25/2020 8:35 AM PST Station ID: [id number]
--- NOTE | 2020-11-25 08:42 | MRI Report ---
PROCEDURE: Angio Brain W/O (MRA) INDICATIONS: RT SIDE WEAKNESS OF BODY, SLURRED SPEECH TECHNIQUE: Noncontrast axial 3-D [id number] MR angiogram, with 3-dimensional maximum intensity projection (M IP) reformats of the internal carotid arteries and posterior circulation then performed. COMPARISON: CT angiogram of the head 10/28/2020 FINDINGS: Image quality: Excellent. Anterior circulation: Intracranial internal carotid arteries demonstrate normal size and intralumina l flow signal. The flow within the paired anterior cerebral arteries is normal and symmetric. The f low within the middle cerebral arteries is normal and symmetric. The anterior communicating artery i s seen. No stenoses, occlusions, or aneurysms. Posterior circulation: Visualized portions of the vertebral arteries demonstrate normal caliber, and join to form a normal appearing basilar artery. The flow within the posterior cerebral arteries is n ormal and symmetric. No stenoses, occlusions, or aneurysms. IMPRESSION: The major intracranial circulation appears widely patent. Reviewed by: Thad Driscoll MD on 11/25/2020 8:41 AM [facility] Approved by: Thad Driscoll MD on 11/25/2020 8:41 AM PST Station ID: [id number]
== END 2020-11-24 16:15 | disposition home or self-care (01) ==
LOC: DI 16:14
PROVIDERS: ATTEND Nurse Practitioner Family
DX: R47.81 Slurred speech (principal); E66.01 Morbid (severe) obesity due to excess calories; E11.40 Type 2 diabetes mellitus with diabetic neuropathy, unspecified; Z86.79 Personal history of other diseases of the circulatory system; E78.2 Mixed hyperlipidemia; I10 Essential (primary) hypertension
CPT/HCPCS: 36415; 70544; 70553; 80053; 80061; 83036; 84443; 85025; A9585; 83721

== ENCOUNTER 2021-02-17 14:46 | Outpatient (CLI) | payer MEDICAID ==
[2021-02-17 18:41] LABS: CALCIUM 9.4 mg/dL (8.5-10.3); CREATININE 0.8 mg/dL (0.4-1.0); POTASSIUM 3.9 mmol/L (3.5-5.0)
[2021-02-17 20:25] LABS: ESTIMATED AVERAGE GLUCOSE 146 mg/dL (70-100); HEMOGLOBIN A1c% 6.7 % (4.27-6.07)
== END 2021-02-17 23:59 | disposition home or self-care (01) ==
LOC: LAB.WCP 14:46
PROVIDERS: ATTEND Nurse Practitioner Family
DX: E11.42 Type 2 diabetes mellitus with diabetic polyneuropathy (principal)
CPT/HCPCS: 36415; 80048; 83036

== ENCOUNTER 2021-03-08 07:17 | Outpatient (CLI) | payer MEDICAID | END 2021-03-08 07:18 | disposition EMS.NT | LOC: EMS 07:17 | DX: Z03.89 Encounter for observation for other suspected diseases and conditions ruled out (principal) ==

== ENCOUNTER 2021-04-04 19:04 | Outpatient (CLI) | payer MEDICAID | END 2021-04-04 19:05 | disposition EMS.NT | LOC: EMS 19:04 | DX: Z03.89 Encounter for observation for other suspected diseases and conditions ruled out (principal) ==

== ENCOUNTER 2021-06-02 08:00 | Outpatient (CLI) | payer MEDICAID ==
[2021-06-02 18:08] LABS: CALCIUM 9.1 mg/dL (8.5-10.3); CREATININE 0.8 mg/dL (0.4-1.0); POTASSIUM 4.1 mmol/L (3.5-5.0)
[2021-06-02 21:02] LABS: ESTIMATED AVERAGE GLUCOSE 148 mg/dL (70-100); HEMOGLOBIN A1c% 6.8 % (4.27-6.07)
== END 2021-06-02 23:59 | disposition home or self-care (01) ==
LOC: LAB.WCP 08:00
PROVIDERS: ATTEND Family Medicine
DX: E11.42 Type 2 diabetes mellitus with diabetic polyneuropathy (principal)
CPT/HCPCS: 36415; 80048; 83036

== ENCOUNTER 2021-06-04 08:00 | Outpatient (CLI) | payer MEDICAID ==
[2021-06-04 19:15] LABS: BILIRUBIN,URINE NEGATIVE (NEGATIVE); GLUCOSE, URINE (UA) NEGATIVE (NEGATIVE); KETONES,URINE (UA) NEGATIVE (NEGATIVE); LEUKOCYTE ESTERASE, URINE MODERATE (NEGATIVE); NITRITE,URINE POSITIVE (NEGATIVE); OCCULT BLOOD,URINE NEGATIVE (NEGATIVE); PH,URINE 7.5 PH (5.0-7.5); PROTEIN,URINE NEGATIVE (NEGATIVE); UROBILINOGEN,URINE 0.2 (NORMAL) E.U./dL (NORMAL)
[2021-06-04 19:24] LABS: CLARITY,URINE HAZY (CLEAR)
[2021-06-04 19:37] LABS: AMORPHOUS SEDIMENT,UR Few /LPF; BACTERIA,URINE Many /HPF (None Seen); RBC,URINE 0-5 /HPF (0-5); SQUAMOUS EPITHELIAL CELL,UR FEW Squamous (<= Few)
== END 2021-06-04 23:59 | disposition home or self-care (01) ==
LOC: LAB.WCP 08:00
PROVIDERS: ATTEND Internal Medicine
DX: R10.9 Unspecified abdominal pain (principal)
CPT/HCPCS: 81001; 87077; 87086; 87181

== ENCOUNTER 2021-06-10 12:56 | Outpatient (CLI) | payer MEDICAID | END 2021-06-10 12:57 | disposition home or self-care (01) | LOC: DI.N 12:56 | PROVIDERS: ATTEND Internal Medicine | DX: Z53.9 Procedure and treatment not carried out, unspecified reason (principal) ==

== ENCOUNTER 2021-06-10 13:06 | Outpatient (CLI) | payer MEDICAID ==
--- NOTE | 2021-06-10 17:23 | XRAY Report ---
PROCEDURE: Lumbar Spine 2 View INDICATIONS: CHRONIC LOW BACK PAIN TECHNIQUE: 3 views of the lumbar spine were acquired. COMPARISON: Prior CT L-spine dated 06/06/2020 FINDINGS: Bones: 5 [id number]-[id number] vertebrae are present. Trace multilevel retrolisthesis and grade 1 spondylo listhesis at the L4-L5 and L5-S1 levels. Moderate multilevel disc degeneration and facet joint arthro kelley at the L3-L4, L4-L5 and L5-S1 levels. No vertebral body compression fractures. No suspicious bony lesions. Soft tissues: Overlying bowel gas pattern is normal. No suspicious soft tissue calcifications. IMPRESSION: Multilevel spondylosis. Reviewed by: HERIBERTO Matthew on 06/10/2021 5:22 PM PDT Approved by: Feliciano Allan MD on 06/10/2021 5:22 PM PDT Station ID: [id number]
== END 2021-06-10 23:59 | disposition home or self-care (01) ==
LOC: DI.N 13:06
PROVIDERS: ATTEND Internal Medicine
DX: M43.16 Spondylolisthesis, lumbar region (principal); M43.17 Spondylolisthesis, lumbosacral region; M47.816 Spondylosis without myelopathy or radiculopathy, lumbar region; M47.817 Spondylosis without myelopathy or radiculopathy, lumbosacral region; M51.36 Other intervertebral disc degeneration, lumbar region; M51.37 Other intervertebral disc degeneration, lumbosacral region

== ENCOUNTER 2021-06-14 22:07 | Outpatient (CLI) | payer MEDICAID | END 2021-06-14 22:08 | disposition EMS.NT | LOC: EMS 22:07 | DX: Z03.89 Encounter for observation for other suspected diseases and conditions ruled out (principal) ==

== ENCOUNTER 2021-06-16 08:00 | Outpatient (CLI) | payer MEDICAID ==
[2021-06-16 19:38] LABS: FECAL OCCULT BLOOD (FIT) NEGATIVE (NEGATIVE)
== END 2021-06-16 23:59 | disposition home or self-care (01) ==
LOC: LAB.R 08:00
PROVIDERS: ATTEND Internal Medicine
DX: Z12.11 Encounter for screening for malignant neoplasm of colon (principal)
CPT/HCPCS: 82274

== ENCOUNTER 2021-07-16 12:38 | Outpatient (CLI) | payer MEDICAID ==
[2021-07-16 17:46] LABS: BASOPHILS # (AUTO) 0.1 10^3/uL (0.0-0.1); BASOPHILS % (AUTO) 0.8 %; EOSINOPHILS # (AUTO) 0.5 10^3/uL (0.0-0.7); EOSINOPHILS % (AUTO) 5.2 %; HCT - HEMATOCRIT 41.1 % (37.0-47.0); LYMPHOCYTES % (AUTO) 34.3 %; MEAN CORPUSCULAR HGB CONC 31.6 g/dL (32.0-36.0); MEAN CORPUSCULAR VOLUME 91.7 fL (81.0-99.0); MEAN PLATELET VOLUME 9.9 fL (7.9-10.8); MONOCYTES # (AUTO) 0.6 10^3/uL (0.0-1.0); MONOCYTES % (AUTO) 7.2 %; NEUTROPHILS # (AUTO) 4.5 10^3/uL (1.5-6.6); PLT - PLATELET COUNT 349 10^3/uL (130-450); RED BLOOD COUNT 4.48 10^6/uL (4.20-5.40); RED CELL DISTRIBUTION WIDTH 14.1 % (12.0-15.0); WHITE BLOOD COUNT 8.7 x10^3/uL (4.8-10.8)
[2021-07-16 17:49] LABS: BILIRUBIN,URINE NEGATIVE (NEGATIVE); GLUCOSE, URINE (UA) NEGATIVE (NEGATIVE); KETONES,URINE (UA) NEGATIVE (NEGATIVE); LEUKOCYTE ESTERASE, URINE NEGATIVE (NEGATIVE); NITRITE,URINE NEGATIVE (NEGATIVE); OCCULT BLOOD,URINE NEGATIVE (NEGATIVE); PH,URINE 7.5 PH (5.0-7.5); PROTEIN,URINE NEGATIVE (NEGATIVE); UROBILINOGEN,URINE 0.2 (NORMAL) E.U./dL (NORMAL)
[2021-07-16 17:56] LABS: BACTERIA,URINE Rare /HPF (None Seen); CLARITY,URINE CLEAR (CLEAR); RBC,URINE 0-5 /HPF (0-5); SQUAMOUS EPITHELIAL CELL,UR RARE Squamous (<= Few); WBC,URINE 0-3 /HPF (0-5)
[2021-07-16 17:58] LABS: ALBUMIN 4.2 g/dL (3.2-5.5); ALBUMIN/GLOBULIN RATIO 1.2 (1.0-2.2); BILIRUBIN,TOTAL 0.4 mg/dL (0.2-1.0); CALCIUM 9.4 mg/dL (8.5-10.3); CREATININE 0.8 mg/dL (0.4-1.0); POTASSIUM 4.6 mmol/L (3.5-5.0); TOTAL PROTEIN 7.8 g/dL (6.7-8.2)
== END 2021-07-16 23:59 | disposition home or self-care (01) ==
LOC: LAB.N 12:38
PROVIDERS: ATTEND Family Medicine
DX: R10.9 Unspecified abdominal pain (principal)
CPT/HCPCS: 36415; 80053; 81001; 82150; 83690; 85025; 87086

== ENCOUNTER 2021-07-23 14:28 | Outpatient (CLI) | payer MEDICAID ==
--- NOTE | 2021-07-23 16:40 | Ultrasound Report ---
PROCEDURE: Abdomen Complete INDICATIONS: ABDOMINAL PAIN TECHNIQUE: Real-time scanning was performed of the abdominal and retroperitoneal organs, with image documentatio n. COMPARISON: CT abdomen pelvis 03/11/2018 FINDINGS: Liver: Liver is enlarged measuring 18.4 cm with diffuse increased echogenicity. Gallbladder: The gallbladder has been removed. Biliary ducts: Intrahepatic bile ducts are non-dilated. Extrahepatic bile duct caliber measures 4 m m. Normal is 6-7 mm or less in diameter, or 10 mm or less post-cholecystectomy. Pancreas: Visualized portions of the pancreas are sonographically normal. Spleen: Spleen is normal in size and homogeneous in echotexture. Kidneys: Kidneys are normal in size and echotexture. Right kidney measures 10.7 cm long; left kidne y measures 1.6 cm long. No hydronephrosis or nephrolithiasis. No solid masses. Low echogenic focus within the mid right renal pole calcification is present measuring 2.1 x 1.9 x 1.9 cm. Septated focus of decreased echogenicity is present in the mid pole measuring 1.7 x 1.2 x 1.6 cm. Aorta: Visualized aorta is normal in caliber at less than 3 cm. Iliacs: Proximal common iliac arteries are normal in caliber at less than 2.5 cm. IVC: Intrahepatic inferior vena cava is patent. Miscellaneous: No free abdominal fluid. IMPRESSION: Low-attenuation foci within the right kidney as above. Previous septated focus appears to been presen t on 03/11/18. However, focus with calcification was not visualized. Further evaluation with CT with r enal protocol is recommended. Reviewed by: Tawana Shirley MD on 07/23/2021 4:39 PM PDT Approved by: Tawana Shirley MD on 07/23/2021 4:39 PM PDT Station ID: [id number]
== END 2021-07-23 14:29 | disposition home or self-care (01) ==
LOC: DI 14:28
PROVIDERS: ATTEND Family Medicine
DX: R10.9 Unspecified abdominal pain (principal)

== ENCOUNTER 2021-08-06 13:14 | Outpatient (CLI) | payer MEDICAID ==
[2021-08-06] MEDS ORDERED: IOVERSOL 320 100 ML VIAL IVP ONE ×3 (13:44→14:42)
--- NOTE | 2021-08-06 15:59 | CT Report ---
PROCEDURE: ABDOMEN W/WO INDICATIONS: ABN RENAL FINDINGS CONTRAST: IV CONTRAST: Optiray 320 ml: 140 PO CONTRAST: *NO PO CONTRAST TECHNIQUE: Noncontrast 5 mm thick sections acquired from the diaphragms to the symphysis. 5 mm coronal and sagi ttal reformats were then performed. For radiation dose reduction, the following was used: automated exposure control, adjustment of mA and/or kV according to patient size. COMPARISON: Abdominal ultrasound 07/23/2021. CT abdomen and pelvis 03/11/2018. FINDINGS: Image quality: Excellent. Lung bases: Lung bases are clear. Heart size is normal. Solid organs: Liver and spleen are normal in size and enhancement. Gallbladder is surgically absent . Biliary system is non dilated. Pancreas enhances normally. No adrenal nodule. Kidneys are normal in size and symmetric and enhancement. No hydronephrosis or nephrolithiasis. No ca lcification. Opacified portions of the proximal ureters are unremarkable. No solid renal mass. Simple appearing cyst at the upper pole of the right kidney measuring 2 cm, (17/36). A second simple appear ing cyst in the lower pole the right kidney measures 1.8 cm. There are a few cortical hypodensities b ilaterally which are too small to further characterize. Mild scarring or lobulation in the mid/upper right kidney. Peritoneum and bowel: Unenhanced bowel loops are normal in caliber and wall thickness. Partially vi sualized appendix is not dilated. No free fluid or air. Nodes and vessels: No retroperitoneal or mesenteric adenopathy by size criteria. Aorta and inferior vena cava are normal in size. Miscellaneous: No ventral hernias. Bones: No suspicious bony lesions. Vertebral body osteophytes. No vertebral body compression fractur es. IMPRESSION: 1. No suspicious renal lesion. Small simple appearing right renal cysts. A few renal cortical hypoden sities which are too small to further characterize. Mild lobulation or scarring in the right kidney. 2. No kidney stones. 3. Post cholecystectomy. Reviewed by: Flash García MD on 08/06/2021 3:58 PM PDT Approved by: Flash García MD on 08/06/2021 3:58 PM PDT Station ID: [id number]
== END 2021-08-06 13:15 | disposition home or self-care (01) ==
LOC: DI 13:14
PROVIDERS: ATTEND Family Medicine
DX: N28.1 Cyst of kidney, acquired (principal); Z90.49 Acquired absence of other specified parts of digestive tract; R93.421 Abnormal radiologic findings on diagnostic imaging of right kidney
CPT/HCPCS: 74170; Q9967

== ENCOUNTER 2021-09-03 08:00 | Outpatient (CLI) | payer MEDICAID ==
[2021-09-03 17:56] LABS: BASOPHILS # (AUTO) 0.1 10^3/uL (0.0-0.1); BASOPHILS % (AUTO) 0.5 %; EOSINOPHILS # (AUTO) 0.4 10^3/uL (0.0-0.7); EOSINOPHILS % (AUTO) 3.3 %; HCT - HEMATOCRIT 41.1 % (37.0-47.0); HGB - HEMOGLOBIN 12.9 g/dL (12.0-16.0); LYMPHOCYTES # (AUTO) 3.4 10^3/uL (1.5-3.5); LYMPHOCYTES % (AUTO) 32.5 %; MEAN CORPUSCULAR HEMOGLOBIN 29.1 pg (27.0-31.0); MEAN CORPUSCULAR HGB CONC 31.4 g/dL (32.0-36.0); MEAN CORPUSCULAR VOLUME 92.6 fL (81.0-99.0); MEAN PLATELET VOLUME 9.7 fL (7.9-10.8); MONOCYTES # (AUTO) 0.6 10^3/uL (0.0-1.0); MONOCYTES % (AUTO) 5.8 %; NEUTROPHILS # (AUTO) 6.1 10^3/uL (1.5-6.6); NEUTROPHILS % (AUTO) 57.4 %; PLT - PLATELET COUNT 356 10^3/uL (130-450); RED BLOOD COUNT 4.44 10^6/uL (4.20-5.40); RED CELL DISTRIBUTION WIDTH 14.5 % (12.0-15.0); WHITE BLOOD COUNT 10.6 x10^3/uL (4.8-10.8)
[2021-09-03 18:31] LABS: ALBUMIN/GLOBULIN RATIO 1.1 (1.0-2.2); BILIRUBIN,TOTAL 0.4 mg/dL (0.2-1.0); CREATININE 0.8 mg/dL (0.4-1.0); TOTAL PROTEIN 7.8 g/dL (6.7-8.2)
[2021-09-03 19:06] LABS: CALCIUM 9.7 mg/dL (8.5-10.3); POTASSIUM 4.6 mmol/L (3.5-5.0)
== END 2021-09-03 23:59 | disposition home or self-care (01) ==
LOC: LAB.WCP 08:00
PROVIDERS: ATTEND Internal Medicine
DX: R10.11 Right upper quadrant pain (principal)
CPT/HCPCS: 36415; 80053; 82150; 83690; 85025

== ENCOUNTER 2021-11-20 04:41 | Outpatient (CLI) | payer MEDICARE, MEDICAID | END 2021-11-20 04:42 | disposition EMS.NT | LOC: EMS 04:41 | DX: Z03.89 Encounter for observation for other suspected diseases and conditions ruled out (principal) ==

== ENCOUNTER 2021-11-30 09:53 | Outpatient (CLI) | payer MEDICARE, MEDICAID ==
[2021-11-30 10:37] LABS: ALBUMIN 4.1 g/dL (3.2-5.5); ALBUMIN/GLOBULIN RATIO 1.1 (1.0-2.2); ALKALINE PHOSPHATASE 65 IU/L (42-121); ALT ALANINE AMINOTRANSFERASE 33 IU/L (10-60); AST ASPARTATE AMINOTRANSFERASE 35 IU/L (10-42); BILIRUBIN,TOTAL 0.7 mg/dL (0.2-1.0); BUN - BLOOD UREA NITROGEN 19 mg/dL (6-20); CALCIUM 9.6 mg/dL (8.5-10.3); CARBON DIOXIDE - CO2 28 mmol/L (21-32); CHLORIDE 99 mmol/L (101-111); CHOL/HDL RATIO 3.7 (<4.4); CHOLESTEROL 127 mg/dL; CREATININE 0.9 mg/dL (0.4-1.0); GFR - MDRD 65 (>89); GLUCOSE 117 mg/dL (70-100); HDL CHOLESTEROL 34 mg/dL; LDL CHOLESTEROL,CALCULATED 54 mg/dL; LDL/HDL RATIO 1.6 (<4.4); POTASSIUM 4.6 mmol/L (3.5-5.0); SODIUM 138 mmol/L (135-145); TRIGLYCERIDES 196 mg/dL; VLDL CHOLESTEROL 39 mg/dL
[2021-11-30 11:54] LABS: ESTIMATED AVERAGE GLUCOSE 151 mg/dL (70-100); HEMOGLOBIN A1c% 6.9 % (4.27-6.07)
== END 2021-11-30 09:54 | disposition home or self-care (01) ==
LOC: LAB 09:53
PROVIDERS: ATTEND Internal Medicine
DX: E11.42 Type 2 diabetes mellitus with diabetic polyneuropathy (principal)
CPT/HCPCS: 36415; 80053; 80061; 82043; 82570; 83036; 83721

== ENCOUNTER 2021-12-03 13:30 | Outpatient (CLI) | payer MEDICARE, MEDICAID ==
--- NOTE | 2021-12-03 17:23 | XRAY Report ---
PROCEDURE: Hips 2V BILAT INDICATIONS: HIP PAIN, UNSPECIFIED TECHNIQUE: AP view of the pelvis and lateral views of each hip acquired. COMPARISON: 12/07/2018. FINDINGS: Bones: No fractures or dislocations. There is mild axial joint space narrowing in the hips with subc hondral sclerosis. Minimal collar osteophytosis bilaterally. No suspicious bony lesions. The visuali zed pelvic ring appears intact. There is facet arthropathy within the visualized lower lumbar spine. Soft tissues: No suspicious soft tissue calcifications or masses. IMPRESSION: 1. Mild bilateral osteoarthritic changes in the hips. Reviewed by: Emery Yu MD on 12/03/2021 5:21 PM PST Approved by: Emery Yu MD on 12/03/2021 5:21 PM PST Station ID: [id number]
--- NOTE | 2021-12-03 19:02 | XRAY Report ---
PROCEDURE: Lumbar Spine 2 View INDICATIONS: DJD, LUMBAR SPINE TECHNIQUE: 3 views of the lumbar spine were acquired. COMPARISON: 06/10/2021 FINDINGS: Bones: Hypertrophic facet joints noted in the lower lumbar spine associated with grade 1 anterior spi nal listhesis at L4-5. Vertebral body height and alignment is otherwise maintained. 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 Anterior osteophytes noted. Soft tissues: Overlying bowel gas pattern is normal. No suspicious soft tissue calcifications. IMPRESSION: Degenerative grade 1 spondylolisthesis at L4-5 No compression fracture Reviewed by: Rainer Alston MD on 12/03/2021 6:01 PM [place] Approved by: Rainer Alston MD on 12/03/2021 6:01 PM [place] Station ID: [id number]
== END 2021-12-03 13:31 | disposition home or self-care (01) ==
LOC: DI.N 13:30
PROVIDERS: ATTEND Internal Medicine
DX: M43.16 Spondylolisthesis, lumbar region (principal); M47.816 Spondylosis without myelopathy or radiculopathy, lumbar region; M16.0 Bilateral primary osteoarthritis of hip; E11.40 Type 2 diabetes mellitus with diabetic neuropathy, unspecified
CPT/HCPCS: 82043; 82570

== ENCOUNTER 2021-12-03 13:42 | Outpatient (CLI) | payer MEDICARE, MEDICAID ==
[2021-12-03 18:53] LABS: CREATININE,URINE 61.1 mg/dL; MICROALBUM/CREATININE RATIO,UR 6.5 ug/mg (<30.0); MICROALBUMIN,URINE 0.4 mg/dL (0-300.0)
== END 2021-12-03 13:43 | disposition home or self-care (01) ==
LOC: LAB.N 13:42
PROVIDERS: ATTEND Internal Medicine
DX: E11.40 Type 2 diabetes mellitus with diabetic neuropathy, unspecified (principal)
CPT/HCPCS: 82043; 82570

== ENCOUNTER 2021-12-13 14:41 | Outpatient (CLI) | payer MEDICARE, MEDICAID ==
--- NOTE | 2021-12-13 17:32 | CT Report ---
PROCEDURE: HEAD WO INDICATIONS: HEAD INJURY, HEADACHE TECHNIQUE: Noncontrast 4.5 mm thick angled axial sections acquired from the foramen magnum to the vertex. For r adiation dose reduction, the following was used: automated exposure control, adjustment of mA and/or kV according to patient size. COMPARISON: None. FINDINGS: Image quality: Excellent. CSF spaces: Basal cisterns are patent. No extra-axial fluid collections. Ventricles are normal in size and shape. Brain: No midline shift. No intracranial masses or hemorrhage. Ahmadi-white matter interface is norm al. Skull and face: Calvarium and visualized facial bones are intact, without suspicious lesions. Sinuses: Visualized sinuses and mastoids are clear. IMPRESSION: 1. No acute intracranial process. Reviewed by: Tawana Shirley MD on 12/13/2021 5:[address] [facility] Approved by: Tawana Shirley MD on 12/13/2021 5:[address] [facility] Station ID: [id number]
== END 2021-12-13 14:42 | disposition home or self-care (01) ==
LOC: DI 14:41
PROVIDERS: ATTEND Internal Medicine
DX: R51.9 Headache, unspecified (principal); Z87.828 Personal history of other (healed) physical injury and trauma

== ENCOUNTER 2022-03-04 15:15 | Outpatient (CLI) | payer MEDICARE, MEDICAID ==
--- NOTE | 2022-03-04 16:16 | XRAY Report ---
PROCEDURE: Knee 3 View RT INDICATIONS: KNEE PAIN, RIGHT TECHNIQUE: 3 views of the right knee(s) were acquired. COMPARISON: February 20, 2019. FINDINGS: BONES/JOINT: Mild medial and moderate lateral compartment joint space narrowing. Tricompartment osteo phytosis. No acute, displaced fracture or dislocation. Small suprapatellar joint effusion. SOFT TISSUES: No significant abnormality. IMPRESSION: 1.Knee degeneration as detailed above. Reviewed by: Gibran Bermudez MD on 03/04/2022 4:14 PM PDT Approved by: Gibran Bermudez MD on 03/04/2022 4:14 PM PDT Station ID: [id number]
== END 2022-03-04 15:16 | disposition home or self-care (01) ==
LOC: DI.N 15:15
PROVIDERS: ATTEND Internal Medicine
DX: M17.11 Unilateral primary osteoarthritis, right knee (principal)

== ENCOUNTER 2022-03-31 06:00 | Outpatient (CLI) | payer MEDICARE, MEDICAID ==
--- NOTE | 2022-03-31 11:00 | XRAY Report ---
PROCEDURE: Knee 3 View RT INDICATIONS: KNEE PAIN TECHNIQUE: 3 views of the right knee(s) were acquired. COMPARISON: None. FINDINGS: Bones: Tricompartmental degenerative changes with tricompartmental osteophytes and lateral joint spac e narrowing consistent with osteoarthritis.. No suspicious bony lesions. Left knee replacement is i ntact. Soft tissues: Small suprapatellar joint effusion. No suspicious soft tissue calcifications. IMPRESSION: 1. Tricompartmental degenerative changes consistent with osteoarthritis. 2. Small suprapatellar joint effusion. Reviewed by: Octaviano Martinez on 03/31/2022 10:59 AM PDT Approved by: Octaviano Martinez on 03/31/2022 10:59 AM PDT Station ID: [id number]
== END 2022-03-31 23:59 | disposition home or self-care (01) ==
LOC: DI.WOS 06:00
PROVIDERS: ATTEND Physician Assistant Surgical
DX: M17.11 Unilateral primary osteoarthritis, right knee (principal); M25.461 Effusion, right knee

== ENCOUNTER → 2022-04-18 | Outpatient (CLI) | payer MEDICARE, MEDICAID | END | disposition EMS.NT | LOC: EMS 05:03 | DX: Z03.89 Encounter for observation for other suspected diseases and conditions ruled out (principal) ==

== ENCOUNTER 2022-06-21 10:56 | Outpatient (CLI) | payer MEDICARE, MEDICAID ==
--- NOTE | 2022-06-21 14:52 | XRAY Report ---
PROCEDURE: Hand 3 View BILAT INDICATIONS: ARTHRITIS TECHNIQUE: 3 views of the hands bilaterally acquired. COMPARISON: None FINDINGS: Bones: No fractures or dislocations. Joint space narrowing of the DIP joints bilaterally seen. No ma rginal erosions. Central erosion in the left index finger DIP. Osteophytes involving the index finger DIP joint P joints bilaterally. Both carpometacarpal joints have joint space narrowing, subchondral sclerosis, and subchondral cystic changes. No suspicious bony lesions. Soft tissues: No suspicious soft tissue calcifications. IMPRESSION: Degenerative changes consistent with osteoarthritis. Reviewed by: Octaviano Martinez on 06/21/2022 2:50 PM PDT Approved by: Octaviano Martinez on 06/21/2022 2:50 PM PDT Station ID: [id number]
== END 2022-06-21 10:57 | disposition home or self-care (01) ==
LOC: DI.N 10:56
PROVIDERS: ATTEND Internal Medicine
DX: M19.042 Primary osteoarthritis, left hand (principal); M19.041 Primary osteoarthritis, right hand

== ENCOUNTER 2022-08-01 12:35 | Outpatient (CLI) | payer MEDICARE, MEDICAID | END 2022-08-01 12:36 | disposition EMS.NT | LOC: EMS 12:35 | DX: R53.1 Weakness (principal) ==

== ENCOUNTER 2022-08-07 12:49 | Outpatient (CLI) | payer MEDICARE, MEDICAID | END 2022-08-07 12:50 | disposition EMS.NT | LOC: EMS 12:49 | DX: M79.602 Pain in left arm (principal) ==

== ENCOUNTER 2022-08-15 23:52 | Outpatient (CLI) | payer MEDICARE, MEDICAID | END 2022-08-15 23:53 | disposition EMS.NT | LOC: EMS 23:52 | DX: Z03.89 Encounter for observation for other suspected diseases and conditions ruled out (principal) ==

== ENCOUNTER 2022-08-16 21:58 | Outpatient (CLI) | payer MEDICARE, MEDICAID | END 2022-08-16 21:59 | disposition EMS.NT | LOC: EMS 21:58 | DX: Z03.89 Encounter for observation for other suspected diseases and conditions ruled out (principal) ==

== ENCOUNTER → 2022-08-16 | Outpatient (CLI) | payer MEDICARE, MEDICAID | END | disposition EMS.NT | LOC: EMS 06:45 | DX: Z03.89 Encounter for observation for other suspected diseases and conditions ruled out (principal) ==

== ENCOUNTER 2022-08-22 13:25 | Outpatient (CLI) | payer MEDICARE, MEDICAID ==
--- NOTE | 2022-08-22 16:50 | XRAY Report ---
PROCEDURE: Wrist 4 View LT INDICATIONS: WRIST COMPLETE XRAY TECHNIQUE: 4 views of the wrist were acquired. COMPARISON: None FINDINGS: Bones: No acute fracture or dislocation. Severe degenerative change is present at the first CMC joint and moderate to severe degenerative change is present at the first triscaphe joint. Scaphoid view: The scaphoid is intact. Soft tissues: No suspicious soft tissue calcifications. IMPRESSION: Severe degenerative change at the first CMC joint. Reviewed by: Brii Hall MD on 08/22/2022 4:49 PM PDT Approved by: Brii Hall MD on 08/22/2022 4:49 PM PDT Station ID: [id number]
== END 2022-08-22 15:00 | disposition home or self-care (01) ==
LOC: DI.WOS 13:25 → DI 08-25 16:50
PROVIDERS: ATTEND Internal Medicine
DX: S46.012A Strain of muscle(s) and tendon(s) of the rotator cuff of left shoulder, initial encounter (principal); M19.012 Primary osteoarthritis, left shoulder; M75.92 Shoulder lesion, unspecified, left shoulder; M25.412 Effusion, left shoulder; M19.032 Primary osteoarthritis, left wrist; M18.12 Unilateral primary osteoarthritis of first carpometacarpal joint, left hand

== ENCOUNTER 2022-08-25 17:15 | Outpatient (CLI) | payer MEDICARE, MEDICAID ==
--- NOTE | 2022-08-26 16:58 | MRI Report ---
REVISED: THIS REPORT WAS ORIGINALLY SIGNED ON 08/26/2022 @4:57 PM. REPORT MOVED TO CORRECT ACCOUNT ON 10/12/2022. PROCEDURE: SHOULDER WO - LT INDICATIONS: PIAN IN LEFT SHOULDER AND XRAY FOR WRIST TECHNIQUE: Noncontrast oblique coronal T2 fast spin echo with fat saturation, oblique sagittal T1 spin echo and T2 fast spin echo with fat saturation, axial T1 spin echo and T2 fast spin echo with fat saturation through the shoulder. COMPARISON: None. FINDINGS: Image quality: Suboptimal positioning. Rotator cuff: There is partial-thickness tear of the distal supraspinatus tendon involving the articular surface in the footprint. There is moderate infraspinatus and subscapularis tendinosis without discrete tendon tear. No rotator cuff muscle atrophy on sagittal images. Bones and bursae: No bone marrow contusions or fractures. Moderate acromioclavicular and glenohumeral joint degeneration. The acromion demonstrates conventional anatomy, without an os acromiale. No pathologic subacromial/subdeltoid bursal fluid is present. There is synovial thickening involving the joint capsule. Small glenohumeral joint effusion. Capsule and soft tissues: There is degenerative fraying of the glenoid labrum. In the absence of intra-articular contrast, the glenohumeral ligaments appear intact. The long head of the biceps tendon demonstrates normal location and morphology. There is fluid within the tendon sheath of the biceps tendon. The rotator interval appears normal, without fibrosis. The coracohumeral ligament is normal in thickness. Note is made of prominent axillary lymph nodes measuring up to 1 cm. IMPRESSION: 1. Partial-thickness tear of the distal supraspinatus tendon. 2. Moderate infraspinatus and subscapularis tendinosis without discrete tendon tear. 3. Moderate acromioclavicular and glenohumeral joint degeneration. 4. Degenerative labral fraying. 5. Fluid within the long head of the biceps tendon sheath, suggesting tenosynovitis. 6. Synovial thickening and small glenohumeral joint effusion, consistent with synovitis. 7. Prominent axillary lymph nodes measuring up to 1 cm, most likely reactive. Recommend clinical follow-up. Reviewed by: Apurva Dubose MD on 08/26/2022 4:57 PM PDT Approved by: Apurva Dubose MD on 08/26/2022 4:57 PM PDT Station ID: [id number]
== END 2022-08-25 20:00 | disposition home or self-care (01) ==
LOC: DI 17:15
PROVIDERS: ATTEND Internal Medicine
DX: M75.112 Incomplete rotator cuff tear or rupture of left shoulder, not specified as traumatic (principal); M19.012 Primary osteoarthritis, left shoulder; M25.412 Effusion, left shoulder

== ENCOUNTER 2022-08-30 00:07 | Outpatient (CLI) | payer MEDICARE, MEDICAID | END 2022-08-30 00:08 | disposition EMS.NT | LOC: EMS 00:07 | DX: Z03.89 Encounter for observation for other suspected diseases and conditions ruled out (principal) ==

== ENCOUNTER 2022-09-12 08:00 | Outpatient (CLI) | payer MEDICARE, MEDICAID ==
--- NOTE | 2022-09-12 18:31 | XRAY Report ---
PROCEDURE: Shoulder 3 View LT INDICATIONS: LEFT SHOULDER PAIN TECHNIQUE: 4 views of the shoulder were acquired. COMPARISON: Left shoulder MRI dated 08/25/2022. FINDINGS: Bones: No fractures or dislocations. Moderate degenerative changes noted in the left acromioclavicul ar joint. There are subchondral lucencies involving the distal left clavicle. There are also subchond ral lucencies involving the superolateral left humeral head. No evidence to suggest cortical destruct ion. Mild degenerative changes of the glenohumeral joint. Visualized ribs appear intact. Soft tissues: No suspicious soft tissue calcifications. IMPRESSION: 1. Left shoulder without acute fracture or dislocation. 2. Degenerative changes of the left acromioclavicular joint with subchondral lucencies of the distal clavicle. Findings may represent subchondral degenerative cystic change with inflammatory arthropathy not excluded. 3. Subchondral lucencies at the left humeral head which may represent subchondral degenerative cysts although inflammatory arthropathy not excluded. 4. Mild left glenohumeral degenerative change. Reviewed by: Kin Leon MD on 09/12/2022 6:29 PM PST Approved by: Kin Leon MD on 09/12/2022 6:29 PM PST Station ID: [id number]
== END 2022-09-12 23:59 | disposition home or self-care (01) ==
LOC: DI.WOS 08:00
PROVIDERS: ATTEND Physician Assistant Surgical
DX: M19.012 Primary osteoarthritis, left shoulder (principal)

== ENCOUNTER 2022-09-29 22:33 | Outpatient (CLI) | payer MEDICARE, MEDICAID | END 2022-09-29 23:59 | disposition EMS.NT | LOC: EMS 22:33 | DX: Z03.89 Encounter for observation for other suspected diseases and conditions ruled out (principal) ==

== ENCOUNTER 2022-10-09 16:40 | Outpatient (CLI) | payer MEDICARE, MEDICAID | END 2022-10-09 16:41 | disposition EMS.NT | LOC: EMS 16:40 | DX: Z03.89 Encounter for observation for other suspected diseases and conditions ruled out (principal) ==

== ENCOUNTER 2022-10-12 00:03 | Outpatient (CLI) | payer MEDICARE, MEDICAID | END 2022-10-12 00:04 | disposition EMS.NT | LOC: EMS 00:03 | DX: Z03.89 Encounter for observation for other suspected diseases and conditions ruled out (principal) ==

== ENCOUNTER 2022-10-13 20:47 | Outpatient (CLI) | payer MEDICARE, MEDICAID | END 2022-10-13 20:48 | disposition left against medical advice (07) | LOC: EMS 20:47 | DX: R53.1 Weakness (principal) ==

== ENCOUNTER 2022-10-14 00:57 | Outpatient (CLI) | payer MEDICARE, MEDICAID | END 2022-10-14 00:58 | disposition EMS.NT | LOC: EMS 00:57 | DX: Z03.89 Encounter for observation for other suspected diseases and conditions ruled out (principal); R45.89 Other symptoms and signs involving emotional state ==

== ENCOUNTER 2022-11-10 20:07 | Outpatient (CLI) | payer MEDICARE, MEDICAID | END 2022-11-10 20:08 | disposition EMS.NT | LOC: EMS 20:07 | DX: Z03.89 Encounter for observation for other suspected diseases and conditions ruled out (principal) ==

== ENCOUNTER 2022-11-12 04:55 | Outpatient (CLI) | payer MEDICARE, MEDICAID | END 2022-11-12 04:56 | disposition EMS.NT | LOC: EMS 04:55 | DX: Z03.89 Encounter for observation for other suspected diseases and conditions ruled out (principal) ==

== ENCOUNTER 2022-11-16 09:29 | Outpatient (CLI) | payer MEDICARE, MEDICAID ==
[2022-11-16 11:55] LABS: BASOPHILS # (AUTO) 0.1 10^3/uL (0.0-0.1); BASOPHILS % (AUTO) 0.7 %; EOSINOPHILS # (AUTO) 0.7 10^3/uL (0.0-0.7); EOSINOPHILS % (AUTO) 5.4 %; HCT - HEMATOCRIT 37.7 % (37.0-47.0); HGB - HEMOGLOBIN 11.3 g/dL (12.0-16.0); LYMPHOCYTES # (AUTO) 3.1 10^3/uL (1.5-3.5); LYMPHOCYTES % (AUTO) 25.2 %; MEAN CORPUSCULAR HEMOGLOBIN 25.7 pg (27.0-31.0); MEAN CORPUSCULAR VOLUME 85.7 fL (81.0-99.0); MEAN PLATELET VOLUME 8.7 fL (7.9-10.8); MONOCYTES % (AUTO) 8.4 %; NEUTROPHILS # (AUTO) 7.3 10^3/uL (1.5-6.6); NEUTROPHILS % (AUTO) 59.8 %; PLT - PLATELET COUNT 596 10^3/uL (130-450); RED CELL DISTRIBUTION WIDTH 16.3 % (12.0-15.0); WHITE BLOOD COUNT 12.1 x10^3/uL (4.8-10.8)
[2022-11-16 12:15] LABS: ALBUMIN 3.6 g/dL (3.2-5.5); ALBUMIN/GLOBULIN RATIO 0.8 (1.0-2.2); ALKALINE PHOSPHATASE 98 IU/L (42-121); ALT ALANINE AMINOTRANSFERASE 28 IU/L (10-60); AST ASPARTATE AMINOTRANSFERASE 26 IU/L (10-42); BILIRUBIN,TOTAL 0.6 mg/dL (0.2-1.0); BUN - BLOOD UREA NITROGEN 25 mg/dL (6-20); CALCIUM 9.8 mg/dL (8.5-10.3); CARBON DIOXIDE - CO2 30 mmol/L (21-32); CHLORIDE 100 mmol/L (101-111); CHOL/HDL RATIO 3.4 (<4.4); CHOLESTEROL 109 mg/dL; CREATININE 0.9 mg/dL (0.4-1.0); GFR - MDRD 65 (>89); GLUCOSE 62 mg/dL (70-100); HDL CHOLESTEROL 32 mg/dL; LDL CHOLESTEROL,CALCULATED 41 mg/dL; LDL/HDL RATIO 1.3 (<4.4); POTASSIUM 4.1 mmol/L (3.5-5.0); SODIUM 139 mmol/L (135-145); TOTAL PROTEIN 8.1 g/dL (6.7-8.2); TRIGLYCERIDES 181 mg/dL; VLDL CHOLESTEROL 36 mg/dL
[2022-11-16 12:20] LABS: ESTIMATED AVERAGE GLUCOSE 183 mg/dL (70-100)
[2022-11-16 13:29] LABS: THYROID STIMULATING HORMONE 4.16 uIU/mL (0.34-5.60)
== END 2022-11-16 09:30 | disposition home or self-care (01) ==
LOC: LAB.N 09:29
PROVIDERS: ATTEND Internal Medicine
DX: E11.42 Type 2 diabetes mellitus with diabetic polyneuropathy (principal); E78.2 Mixed hyperlipidemia; F41.1 Generalized anxiety disorder; I10 Essential (primary) hypertension
CPT/HCPCS: 36415; 80053; 80061; 82043; 82570; 83036; 83721; 84443; 85025

== ENCOUNTER 2022-12-12 08:00 | Outpatient (CLI) | payer MEDICARE, MEDICAID ==
--- NOTE | 2022-12-12 14:13 | XRAY Report ---
PROCEDURE: Hand 3 View LT INDICATIONS: LEFT HAND PAIN TECHNIQUE: 3 views of the hand acquired. COMPARISON: Left wrist radiographs 08/22/2022, bilateral hand radiographs 06/21/2022 FINDINGS: Bones: No acute fractures or dislocations. No suspicious bony lesions. Severe tendinosis narrowing seen at the first carpal metacarpal joint with subchondral sclerosis, marginal osteophyte formation, and mild remodeling of the articular surfaces. Degenerative changes are seen in the interphalangeal joints of the fingers that are most severe at the second distal interphalangeal joint. Focal lucency is seen within the first metacarpal head that appears unchanged. 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 Multiple chronic lucencies are seen in the carpal bones. Soft tissues: No suspicious soft tissue calcifications. Mild soft tissue edema at the dorsum of the hand. Mild edema in the digits of the hand. IMPRESSION: Arthritic changes in the hand are most notable and severe at the first carpometacarpal joint. Mild so ft tissue edema in the fingers. Findings may be secondary to primary osteoarthrosis versus a chronic inflammatory arthritis such as psoriatic arthritis. Recommend correlation with clinical findings and serologies. Reviewed by: Krystian Savage MD on 12/12/2022 2:12 PM PST Approved by: Krystian Savage MD on 12/12/2022 2:12 PM PST Station ID: [id number]
== END 2022-12-12 23:59 | disposition home or self-care (01) ==
LOC: DI.WOS 08:00
PROVIDERS: ATTEND Physician Assistant Surgical
DX: M18.11 Unilateral primary osteoarthritis of first carpometacarpal joint, right hand (principal); M19.041 Primary osteoarthritis, right hand; M65.342 Trigger finger, left ring finger

== ENCOUNTER 2023-01-28 21:13 | Outpatient (CLI) | payer MEDICARE, MEDICAID | END 2023-01-28 23:59 | disposition EMS.NT | LOC: EMS 21:13 | DX: Z03.89 Encounter for observation for other suspected diseases and conditions ruled out (principal) ==

== ENCOUNTER 2023-01-28 22:13 | Outpatient (CLI) | payer MEDICARE, MEDICAID | END 2023-01-28 22:14 | disposition EMS.NT | LOC: EMS 22:13 | DX: Z03.89 Encounter for observation for other suspected diseases and conditions ruled out (principal) ==

== ENCOUNTER 2023-01-29 00:24 | Outpatient (CLI) | payer MEDICARE, MEDICAID | END 2023-01-29 23:59 | disposition EMS.NT | LOC: EMS 00:24 | DX: Z03.89 Encounter for observation for other suspected diseases and conditions ruled out (principal) ==

== ENCOUNTER 2023-01-29 01:56 | Outpatient (CLI) | payer MEDICARE, MEDICAID | END 2023-01-29 23:58 | disposition EMS.NT | LOC: EMS 01:56 | DX: Z03.89 Encounter for observation for other suspected diseases and conditions ruled out (principal) ==

== ENCOUNTER 2023-02-21 03:03 | Outpatient (CLI) | payer MEDICARE, MEDICAID | END 2023-02-21 23:59 | disposition EMS.NT | LOC: EMS 03:03 | DX: Z03.89 Encounter for observation for other suspected diseases and conditions ruled out (principal) ==

== ENCOUNTER 2023-02-21 04:57 | Outpatient (CLI) | payer MEDICARE, MEDICAID | END 2023-02-21 23:59 | disposition EMS.NT | LOC: EMS 04:57 | DX: Z03.89 Encounter for observation for other suspected diseases and conditions ruled out (principal) ==

== ENCOUNTER 2023-05-23 16:57 | Outpatient (CLI) | payer MEDICARE, MEDICAID | END 2023-05-23 23:59 | disposition EMS.NT | LOC: EMS 16:57 | DX: Z03.89 Encounter for observation for other suspected diseases and conditions ruled out (principal) ==

== ENCOUNTER 2023-05-26 10:53 | Outpatient (CLI) | payer MEDICARE, MEDICAID ==
[2023-05-26 18:14] LABS: BASOPHILS # (AUTO) 0.1 10^3/uL (0.0-0.1); BASOPHILS % (AUTO) 0.7 %; EOSINOPHILS # (AUTO) 0.4 10^3/uL (0.0-0.7); EOSINOPHILS % (AUTO) 4.6 %; HCT - HEMATOCRIT 45.2 % (37.0-47.0); MEAN CORPUSCULAR HEMOGLOBIN 27.7 pg (27.0-31.0); MEAN CORPUSCULAR VOLUME 89.3 fL (81.0-99.0); MEAN PLATELET VOLUME 9.8 fL (7.9-10.8); MONOCYTES # (AUTO) 0.6 10^3/uL (0.0-1.0); MONOCYTES % (AUTO) 6.6 %; NEUTROPHILS # (AUTO) 5.2 10^3/uL (1.5-6.6); NEUTROPHILS % (AUTO) 55.8 %; PLT - PLATELET COUNT 404 10^3/uL (130-450); RED BLOOD COUNT 5.06 10^6/uL (4.20-5.40); RED CELL DISTRIBUTION WIDTH 15.2 % (12.0-15.0); WHITE BLOOD COUNT 9.4 x10^3/uL (4.8-10.8)
[2023-05-26 18:22] LABS: CREATININE,URINE 159.9 mg/dL; MICROALBUM/CREATININE RATIO,UR 25.6 ug/mg (<30.0); MICROALBUMIN,URINE 4.1 mg/dL
[2023-05-26 18:24] LABS: ALBUMIN 4.2 g/dL (3.2-5.5); ALBUMIN/GLOBULIN RATIO 1.1 (1.0-2.2); ALKALINE PHOSPHATASE 104 IU/L (42-121); ALT ALANINE AMINOTRANSFERASE 49 IU/L (10-60); AST ASPARTATE AMINOTRANSFERASE 36 IU/L (10-42); BILIRUBIN,TOTAL 0.5 mg/dL (0.2-1.0); BUN - BLOOD UREA NITROGEN 17 mg/dL (6-20); CALCIUM 9.9 mg/dL (8.5-10.3); CARBON DIOXIDE - CO2 31 mmol/L (21-32); CHLORIDE 97 mmol/L (101-111); CHOL/HDL RATIO 3.8 (<4.4); CHOLESTEROL 147 mg/dL; CREATININE 0.9 mg/dL (0.6-1.3); GFR - MDRD 65 (>89); GLUCOSE 195 mg/dL (74-104); HDL CHOLESTEROL 39 mg/dL; LDL CHOLESTEROL,CALCULATED 54 mg/dL; LDL/HDL RATIO 1.4 (<4.4); POTASSIUM 4.1 mmol/L (3.5-4.5); SODIUM 135 mmol/L (135-145); TOTAL PROTEIN 8.1 g/dL (6.4-8.9); TRIGLYCERIDES 270 mg/dL (48-352); VLDL CHOLESTEROL 54 mg/dL
[2023-05-26 18:35] LABS: THYROID STIMULATING HORMONE 3.21 uIU/mL (0.34-5.60)
[2023-05-26 18:56] LABS: ESTIMATED AVERAGE GLUCOSE 269 mg/dL (70-100)
== END 2023-05-26 10:54 | disposition home or self-care (01) ==
LOC: LAB.N 10:53
PROVIDERS: ATTEND Internal Medicine
DX: E11.42 Type 2 diabetes mellitus with diabetic polyneuropathy (principal); E78.2 Mixed hyperlipidemia; F33.1 Major depressive disorder, recurrent, moderate; I10 Essential (primary) hypertension
CPT/HCPCS: 36415; 80053; 80061; 82043; 82570; 83036; 83721; 84443; 85025

== ENCOUNTER 2023-07-09 07:35 | Outpatient (CLI) | payer MEDICAID, MEDICARE | END 2023-07-09 07:36 | disposition EMS.NT | LOC: EMS 07:35 | DX: Z03.89 Encounter for observation for other suspected diseases and conditions ruled out (principal) ==

== ENCOUNTER 2023-07-24 05:44 | Outpatient (CLI) | payer MEDICARE | END 2023-07-24 05:45 | disposition EMS.NT | LOC: EMS 05:44 | DX: Z03.89 Encounter for observation for other suspected diseases and conditions ruled out (principal) ==

== ENCOUNTER 2023-08-23 09:32 | Outpatient (CLI) | payer MEDICARE | END 2023-08-23 09:33 | disposition left against medical advice (07) | LOC: EMS 09:32 | DX: R42 Dizziness and giddiness (principal); E11.65 Type 2 diabetes mellitus with hyperglycemia; Z79.4 Long term (current) use of insulin ==

== ENCOUNTER 2023-08-29 11:25 | Outpatient (CLI) | payer MEDICARE | END 2023-08-29 11:26 | disposition EMS.NT | LOC: EMS 11:25 | DX: Z03.89 Encounter for observation for other suspected diseases and conditions ruled out (principal) ==

== ENCOUNTER 2023-09-01 20:41 | Outpatient (CLI) | payer MEDICARE | END 2023-09-01 20:42 | disposition left against medical advice (07) | LOC: EMS 20:41 | DX: S31.822A Laceration with foreign body of left buttock, initial encounter (principal); W01.110A Fall on same level from slipping, tripping and stumbling with subsequent striking against sharp glass, initial encounter; Y92.009 Unspecified place in unspecified non-institutional (private) residence as the place of occurrence of the external cause ==

== ENCOUNTER 2023-12-06 13:20 | Outpatient (CLI) | payer MEDICARE | END 2023-12-06 13:21 | disposition EMS.NT | LOC: EMS 13:20 | DX: Z03.89 Encounter for observation for other suspected diseases and conditions ruled out (principal) ==

== ENCOUNTER 2024-01-18 12:48 | Outpatient (CLI) | payer MEDICARE | END 2024-01-18 12:49 | disposition home or self-care (01) | LOC: LAB.N 12:48 | PROVIDERS: ATTEND Internal Medicine | DX: Z53.9 Procedure and treatment not carried out, unspecified reason (principal) ==

== ENCOUNTER 2024-01-28 03:11 | Outpatient (CLI) | payer MEDICARE | END 2024-01-28 23:59 | disposition EMS.NT | LOC: EMS 03:11 | DX: Z03.89 Encounter for observation for other suspected diseases and conditions ruled out (principal) ==

== ENCOUNTER 2024-03-20 02:56 | Outpatient (CLI) | payer MEDICARE | END 2024-03-20 23:25 | disposition EMS.NT | LOC: EMS 02:56 | DX: R53.1 Weakness (principal) ==

== ENCOUNTER 2024-06-28 00:34 | Outpatient (CLI) | payer MEDICARE | END 2024-06-28 00:35 | disposition EMS.NT | LOC: EMS 00:34 | DX: Z03.89 Encounter for observation for other suspected diseases and conditions ruled out (principal); Z91.81 History of falling ==